=== PATIENT | male | born 1970 | race African-American/Black ===

== ENCOUNTER 2019-08-27 00:35 | Inpatient (IN) | payer MEDICAID ==
[~2019-08-27] VITALS: Ht 185.4 cm; Wt 83.9 kg
[2019-08-27] MEDS ORDERED: ONDANSETRON HCL 4 MG/2 ML VIAL IV ONE (02:45)
[2019-08-27] MEDS ORDERED: ACETAMINOPHEN 325 MG TAB PO ONE ×3 (02:45→02:57)
[2019-08-27] MEDS ORDERED: SODIUM CHLORIDE 0.9% 2,450 ML IV ONE (02:45)
[2019-08-27] MEDS ORDERED: VANCOMYCIN 1GM/250ML 250 ML IV ONE ×3 (02:45→02:57)
[2019-08-27] MEDS ORDERED: MORPHINE SULFATE 4 MG/ML SYR/VIAL IV ONE (02:45)
[2019-08-27] MEDS ORDERED: ONDANSETRON HCL 4 MG/2 ML VIAL ONE (03:09)
[2019-08-27] MEDS ORDERED: MORPHINE SULFATE 4 MG/ML SYR/VIAL ONE (03:09)
[2019-08-27 03:26] LABS: Basophils # (auto) 0.1 uL; Basophils % (auto) 0.4 % (0.0-2.0); Eosinophils # (auto) 0 uL; Hemoglobin 12.5 g/dL (13.5-17.5); Lymphocytes # (auto) 1.3 uL; Lymphocytes % (auto) 6.6 % (10.0-50.0); Mean Corpuscular Hemoglobin 27.7 pg (28.0-32.0); Mean Corpuscular Hgb Conc. 33.8 g/dL (32.0-36.0); Mean Corpuscular Volume 81.9 fL (80.0-100.0); Monocytes % (auto) 9.6 % (0.0-12.0); Neutrophils # (auto) 17.1 uL; Neutrophils % (auto) 83.4 % (37.0-80.0); Platelet Count (auto) 285 10^3/uL (140-450); Red Blood Cells 4.52 10^6/uL (4.5-5.90); Red Cell Distribution Width 14.9 % (11.8-14.3); White Blood Cell 20.5 10^3/uL (4.4-10.8)
[2019-08-27 03:29] LABS: Urine Bacteria FEW /hpf (None Seen); Urine Blood 1+ /uL (Negative); Urine Hyaline Cast FEW /lpf (0 - 2); Urine Mucus FEW (None Seen); Urine Specific Gravity 1.014 (1.001-1.035); Urine WBC 2 /hpf (0 - 3)
[2019-08-27] MEDS ORDERED: PIPERACILLIN-TAZOB 3.375GM 100 ML IV ONE ×2 (03:45→04:17)
[2019-08-27 03:49] LABS: Albumin 3.1 g/dL (3.4-5.0); BUN/Creatinine Ratio 10.7; Calcium 8.6 mg/dL (8.5-10.1)
[2019-08-27 03:52] LABS: Bilirubin, Total 1.7 mg/dL (0.2-1.0); Potassium 2.7 mmol/L (3.5-5.1); Total Protein 8.1 g/dL (6.4-8.2)
[2019-08-27] MEDS ORDERED: POTASSIUM EFFERVESENT TAB 25 MEQ PO ONE (04:30)
[2019-08-27] MEDS ORDERED: POTASSIUM CHL 20MEQ/100ML 100 ML IV ONE ×2 (04:30→04:34)
[2019-08-27] MEDS ORDERED: TEMAZEPAM 15 MG CAP PO PRN (05:30)
[2019-08-27] MEDS ORDERED: SOD CHL 0.9%/ KCL 20MEQ 1,000 ML IV ONE (05:30)
[2019-08-27] MEDS ORDERED: ONDANSETRON HCL 4 MG/2 ML VIAL IV PRN (05:30)
[2019-08-27] MEDS ORDERED: ACETAMINOPHEN 325 MG TAB PO PRN (05:30)
[2019-08-27] MEDS ORDERED: HYDROcodone-ACET 5/325MG TAB PO PRN (05:30)
[2019-08-27] MEDS ORDERED: metroNIDAZOLE 500MG/100ML 100 ML IV SCH (06:00)
[2019-08-27] MEDS: cloNIDine HCL 0.1 MG TAB PO PRN ×2 (06:12→07:46)
[2019-08-27] MEDS: MORPHINE SULF INJ 2 MG/ML SYRINGE 1ML IV PRN (06:22)
--- NOTE | 2019-08-27 08:15 | NUR ---
MS admit from ER NORA TONY admitted to Telemetry unit after SBAR received. Patient oriented to Kirsten Villanueva, primary RN, unit, room, bed, and unit policies regarding patient care and visiting hours. Patient weighed by bedscale and encouraged to call if they need something. All questions and concerns addressed, patient verbalized understanding. Note:
[2019-08-27] MEDS ORDERED: cefTRIAXone 1GM/50ML D5W 50 ML IV SCH (09:00)
[2019-08-27] MEDS: LISINOPRIL 10 MG TAB PO SCH (09:12)
[2019-08-27] MEDS: PANTOPRAZOLE 40 MG TAB PO SCH (09:12)
--- NOTE | 2019-08-27 09:46 | NUR ---
PRINT-OUT INFORMATION RE: DIVERTICULITIS GIVEN TO PT.
[2019-08-27 11:16] LABS: Basophils # (auto) 0.1 uL; Basophils % (auto) 0.2 % (0.0-2.0); Eosinophils # (auto) 0 uL; Eosinophils % (auto) 0.1 % (0.0-7.0); Hematocrit 32.4 % (41.0-53.0); Hemoglobin 10.7 g/dL (13.5-17.5); Lymphocytes # (auto) 1.1 uL; Lymphocytes % (auto) 5.4 % (10.0-50.0); Mean Corpuscular Hgb Conc. 33.1 g/dL (32.0-36.0); Mean Corpuscular Volume 81.5 fL (80.0-100.0); Monocytes # (auto) 1.7 uL; Monocytes % (auto) 8.5 % (0.0-12.0); Neutrophils # (auto) 17.6 uL; Neutrophils % (auto) 85.8 % (37.0-80.0); Platelet Count (auto) 243 10^3/uL (140-450); Red Blood Cells 3.97 10^6/uL (4.5-5.90); Red Cell Distribution Width 14.5 % (11.8-14.3); White Blood Cell 20.5 10^3/uL (4.4-10.8)
[2019-08-27 11:40] LABS: Albumin 2.6 g/dL (3.4-5.0); BUN/Creatinine Ratio 9.3; Bilirubin, Total 1.2 mg/dL (0.2-1.0); Calcium 7.9 mg/dL (8.5-10.1)
[2019-08-27 11:48] LABS: Potassium 2.9 mmol/L (3.5-5.1)
[2019-08-27] MEDS: PIPERACILLIN-TAZO 4.5GM 100 ML IV SCH ×2 (12:01→17:47)
--- NOTE | 2019-08-27 12:43 | NUR ---
DR RUTLEDGE MADE AWARE OF PT'S POTASSIUM LEVEL OF 2.9 AND ALSO OF PT'S REQUEST FOR COUGH MEDICINE.
--- NOTE | 2019-08-27 12:44 | NUR ---
DR RUTLEDGE AT BEDSIDE.
[2019-08-27 13:22] VITALS: BP 127/84
[2019-08-27] MEDS ORDERED: POTASSIUM CHL 20 Meq TABLET PO ONE (14:15)
[2019-08-27] MEDS ORDERED: guaiFENesin-CODEINE Liq 5 ML UD PO PRN (15:45)
[2019-08-27 17:23] VITALS: BP 136/71
--- NOTE | 2019-08-27 19:17 | NUR ---
CLOSING NOTES CARE ENDORSED TO NOC RN. PT RESTING IN BED. NO DISTRESS NOTED. DENIES PAIN OR SOB.
--- NOTE | 2019-08-27 20:00 | NUR ---
PT SLEEPING CHEST RISING AND FALLING, AROUSABLE BY NAME, AAOX4. AFEBRILE. NO C/O PAIN AT THIS TIME. PT AMBULATES W/ STEADY GAIT. NO SOB OR DISTRESS. POC DISCUSSED W/ FAMILY, STATES UNDERSTANDING. SAFETY PRECAUTIONS IN PLACE. WILL CONTINUE TO MONITOR.
[2019-08-27 22:00] VITALS: BP 140/78
[2019-08-28] MEDS ORDERED: PIPERACILLIN-TAZO 4.5GM 200 ML IV ONE (01:46)
[2019-08-28] MEDS: PIPERACILLIN-TAZO 4.5GM 100 ML IV SCH ×5 (01:48→23:45)
[2019-08-28 05:00] VITALS: BP 141/77
[2019-08-28 06:03] LABS: Basophils # (auto) 0.1 uL; Basophils % (auto) 0.4 % (0.0-2.0); Eosinophils # (auto) 0.1 uL; Eosinophils % (auto) 0.9 % (0.0-7.0); Hematocrit 32.7 % (41.0-53.0); Hemoglobin 10.7 g/dL (13.5-17.5); Lymphocytes # (auto) 1.4 uL; Lymphocytes % (auto) 9.5 % (10.0-50.0); Mean Corpuscular Hemoglobin 27.1 pg (28.0-32.0); Mean Corpuscular Hgb Conc. 32.7 g/dL (32.0-36.0); Mean Corpuscular Volume 82.8 fL (80.0-100.0); Monocytes # (auto) 1.6 uL; Monocytes % (auto) 11.3 % (0.0-12.0); Neutrophils # (auto) 11.1 uL; Neutrophils % (auto) 77.9 % (37.0-80.0); Nucleated Red Blood Cells % 0.1 %; Platelet Count (auto) 234 10^3/uL (140-450); Red Blood Cells 3.94 10^6/uL (4.5-5.90); Red Cell Distribution Width 14.5 % (11.8-14.3); White Blood Cell 14.2 10^3/uL (4.4-10.8)
[2019-08-28 06:13] LABS: Albumin 2.5 g/dL (3.4-5.0); Potassium 3.4 mmol/L (3.5-5.1)
[2019-08-28 06:20] LABS: BUN/Creatinine Ratio 9.7; Bilirubin, Total 0.8 mg/dL (0.2-1.0); Calcium 8.6 mg/dL (8.5-10.1); Total Protein 6.7 g/dL (6.4-8.2)
--- NOTE | 2019-08-28 07:30 | NUR ---
Opening Shift Note Assumed care of patient, awake and alert. No S/S of distress/SOB or pain. Instructed on POC and to call for assist PRN, will continue to monitor for changes Q1hr and PRN. Patient denies pain at this time.
[2019-08-28 09:01] VITALS: BP 146/95
[2019-08-28] MEDS: PANTOPRAZOLE 40 MG TAB PO SCH (10:06)
[2019-08-28] MEDS: LISINOPRIL 10 MG TAB PO SCH (10:07)
--- NOTE | 2019-08-28 11:00 | NUR ---
Dr. Mendoza in to see patient as hospitalist.
[2019-08-28 12:30] VITALS: BP 156/105
[2019-08-28] MEDS ORDERED: POTASSIUM CHL 20 Meq TABLET PO ONE (12:45)
[2019-08-28 17:06] VITALS: BP 164/99
--- NOTE | 2019-08-28 18:23 | NUR ---
Patient is resting quietly. Call light in reach, will continue to monitor.
--- NOTE | 2019-08-28 19:00 | NUR ---
Opening Shift Note Assumed care of patient, awake and alert. No S/S of distress/SOB or pain. Instructed on POC and to call for assist PRN, will continue to monitor for changes Q1hr and PRN.
[2019-08-28] MEDS: MORPHINE SULF INJ 2 MG/ML SYRINGE 1ML IV PRN (21:41)
[2019-08-28 22:00] VITALS: BP 161/92
[2019-08-28] MEDS: cloNIDine HCL 0.1 MG TAB PO PRN (22:10)
[2019-08-29 05:00] VITALS: BP 156/110
[2019-08-29] MEDS: PIPERACILLIN-TAZO 4.5GM 100 ML IV SCH ×2 (05:31→12:46)
[2019-08-29] MEDS: cloNIDine HCL 0.1 MG TAB PO PRN (05:41)
[2019-08-29] MEDS: MORPHINE SULF INJ 2 MG/ML SYRINGE 1ML IV PRN (05:41)
[2019-08-29 06:42] LABS: Basophils # (auto) 0.1 uL; Basophils % (auto) 0.9 % (0.0-2.0); Eosinophils # (auto) 0.2 uL; Eosinophils % (auto) 3.2 % (0.0-7.0); Hematocrit 32.9 % (41.0-53.0); Hemoglobin 10.9 g/dL (13.5-17.5); Lymphocytes # (auto) 1.1 uL; Lymphocytes % (auto) 16.8 % (10.0-50.0); Mean Corpuscular Hemoglobin 27.1 pg (28.0-32.0); Mean Corpuscular Volume 82.3 fL (80.0-100.0); Monocytes # (auto) 0.9 uL; Monocytes % (auto) 14.4 % (0.0-12.0); Neutrophils # (auto) 4.1 uL; Neutrophils % (auto) 64.7 % (37.0-80.0); Platelet Count (auto) 269 10^3/uL (140-450); Red Cell Distribution Width 14.6 % (11.8-14.3); White Blood Cell 6.4 10^3/uL (4.4-10.8)
[2019-08-29 06:57] LABS: BUN/Creatinine Ratio 5.5; Calcium 8.5 mg/dL (8.5-10.1); Potassium 3.4 mmol/L (3.5-5.1)
[2019-08-29 09:00] VITALS: BP 154/95
[2019-08-29] MEDS: PANTOPRAZOLE 40 MG TAB PO SCH (10:00)
[2019-08-29] MEDS: LISINOPRIL 10 MG TAB PO SCH (10:01)
[2019-08-29 12:38] VITALS: BP 146/86
[2019-08-29 14:21] VITALS: BP 154/95
--- NOTE | 2019-08-29 16:00 | NUR ---
Discharge instructions given as ordered. Encourage to follow up with PMD with [facility] in [place], [place] as instructed and follow up with GI in 4-6 weeks. All questions and concerns addressed. Patient verbalized understanding. Medication reconciliation form completed and copy given to patient. IV removed with catheter intact, pressure dressing applied. Patient taken to vehicle via wheelchair with all personal belongings, accompanied by staff and family member. No distress noted at time of departure.
== END 2019-08-29 16:00 | disposition home or self-care (01) | DRG 720 ==
LOC: EDBD 00:35 → ER 00:39 → OVERFLOW 00:40 → CENTRAL 08:36
PROVIDERS: ADMIT Nurse Practitioner; ATTEND Internal Medicine
DX: A41.9 Sepsis, unspecified organism (principal); K57.32 Diverticulitis of large intestine without perforation or abscess without bleeding; D72.829 Elevated white blood cell count, unspecified; E87.6 Hypokalemia; N40.0 Benign prostatic hyperplasia without lower urinary tract symptoms; I16.9 Hypertensive crisis, unspecified; K40.20 Bilateral inguinal hernia, without obstruction or gangrene, not specified as recurrent; I10 Essential (primary) hypertension; Z79.899 Other long term (current) drug therapy
CPT/HCPCS: 36415; 74176; 80048; 80053; 81001; 82378; 83036; 83605; 83735; 84154; 84443; 85025; 85652; 87040; 87086; 87493; 96365; 96367; 96368; 96375; G0378; J0696; J2405; J2543; J3480; J3490

== ENCOUNTER 2019-10-28 13:23 | Inpatient (IN) | payer MEDICAID ==
[~2019-10-28] VITALS: Ht 167.6 cm; Wt 93.6 kg
[2019-10-28] MEDS ORDERED: ACETAMINOPHEN 500 MG TAB PO ONE ×2 (15:09→15:15)
[2019-10-28] MEDS ORDERED: SODIUM CHLORIDE 0.9% 1,000 ML IVB ONE (15:52)
[2019-10-28] MEDS ORDERED: IOHEXOL 300 MG/ML 100ML BOTTLE IJ ONE ×2 (16:00→18:11)
[2019-10-28] MEDS ORDERED: ONDANSETRON HCL 4 MG/2 ML VIAL IV ONE (16:00)
[2019-10-28] MEDS ORDERED: MORPHINE SULFATE 4 MG/ML SYR/VIAL IV ONE (16:00)
[2019-10-28 16:35] LABS: Basophils # (auto) 0.1 10 ^3/uL (0-0.2); Basophils % (auto) 0.5 % (0.0-2.0); Eosinophils # (auto) 0 10 ^3/uL (0-0.8)
[2019-10-28 16:36] LABS: Hematocrit 37.6 % (36.0-46.0); Hemoglobin 12.6 g/dL (12.2-16.2); Lymphocytes # (auto) 1.3 10 ^3/uL (0.4-5.4); Lymphocytes % (auto) 7.2 % (10.0-50.0); Mean Corpuscular Hemoglobin 26.9 pg (28.0-32.0); Mean Corpuscular Hgb Conc. 33.7 g/dL (32.0-36.0); Monocytes # (auto) 1.8 10 ^3/uL (0-1.3); Neutrophils # (auto) 14.5 10 ^3/uL (1.6-8.6); Neutrophils % (auto) 82.3 % (37.0-80.0); Platelet Count (auto) 338 10^3/uL (140-450); Red Cell Distribution Width 15.8 % (11.8-14.3); White Blood Cell 17.6 10^3/uL (4.4-10.8)
[2019-10-28 16:41] LABS: Urine Bacteria NONE SEEN /hpf (None Seen); Urine Blood 1+ /uL (Negative); Urine Mucus FEW (None Seen); Urine Specific Gravity 1.029 (1.001-1.035); Urine WBC 5 /hpf (0 - 5)
[2019-10-28 17:02] LABS: Albumin 3.1 g/dL (3.4-5.0); BUN/Creatinine Ratio 10.3; Calcium 9.1 mg/dL (8.5-10.1)
[2019-10-28 17:11] LABS: Bilirubin, Total 2.1 mg/dL (0.2-1.0); Total Protein 8.8 g/dL (6.4-8.2)
[2019-10-28 17:16] LABS: Potassium 2.6 mmol/L (3.5-5.1)
[2019-10-28] MEDS ORDERED: POTASSIUM CHL 20MEQ/100ML 100 ML IV ONE (18:00)
[2019-10-28] MEDS ORDERED: metroNIDAZOLE 500MG/100ML 100 ML IV ONE (19:00)
[2019-10-28] MEDS ORDERED: MORPHINE SULF INJ 2 MG/ML SYRINGE 1ML IV PRN (19:15)
[2019-10-28] MEDS ORDERED: LABETALOL HCL 5 MG/ML 4ML SYRINGE IV PRN (19:15)
[2019-10-28] MEDS ORDERED: NITROGLYCERIN 0.4 MG SL TAB SL PRN (19:15)
[2019-10-28] MEDS: LABETALOL HCL 5 MG/ML ML 20ML VIAL IV PRN (21:15)
[2019-10-28 22:00] VITALS: BP 157/102
[2019-10-28] MEDS: HYDROmorphone HCL 2 MG/ML VL IV PRN (22:31)
[2019-10-28 23:30] VITALS: BP 119/75
[2019-10-28] MEDS: D5W/SOD CHL 0.45%/KCL 20MEQ 1,000 ML IV SCH (23:33)
[2019-10-28] MEDS: metroNIDAZOLE 500MG/100ML 100 ML IV SCH (23:34)
[2019-10-29] VITALS (7 sets, daily range): BP systolic 145–182; BP diastolic 83–103
[2019-10-29] MEDS: HYDROmorphone HCL 2 MG/ML VL IV PRN ×5 (03:19→22:53)
[2019-10-29] MEDS: D5W/SOD CHL 0.45%/KCL 20MEQ 1,000 ML IV SCH ×3 (03:23→20:19)
[2019-10-29] MEDS: metroNIDAZOLE 500MG/100ML 100 ML IV SCH ×3 (05:46→22:55)
[2019-10-29 05:57] LABS: Basophils # (auto) 0 10 ^3/uL (0-0.2); Basophils % (auto) 0.3 % (0.0-2.0); Eosinophils # (auto) 0 10 ^3/uL (0-0.8); Eosinophils % (auto) 0.1 % (0.0-7.0)
[2019-10-29 05:59] LABS: Hematocrit 31.6 % (41.0-53.0); Hemoglobin 10.4 g/dL (13.5-17.5); Lymphocytes # (auto) 1.2 10 ^3/uL (0.4-5.4); Lymphocytes % (auto) 7.5 % (10.0-50.0); Mean Corpuscular Hemoglobin 26.4 pg (28.0-32.0); Mean Corpuscular Hgb Conc. 33.1 g/dL (32.0-36.0); Mean Corpuscular Volume 79.9 fL (80.0-100.0); Monocytes # (auto) 1.7 10 ^3/uL (0-1.3); Monocytes % (auto) 11.2 % (0.0-12.0); Neutrophils # (auto) 12.5 10 ^3/uL (1.6-8.6); Neutrophils % (auto) 80.9 % (37.0-80.0); Platelet Count (auto) 278 10^3/uL (140-450); Red Blood Cells 3.95 10^6/uL (4.5-5.90); White Blood Cell 15.5 10^3/uL (4.4-10.8)
[2019-10-29 06:13] LABS: INR 1.18 (0.9-1.15); Partial Thromboplastin Time 36.6 sec (23.64-32.05)
[2019-10-29 06:29] LABS: Albumin 2.4 g/dL (3.4-5.0); BUN/Creatinine Ratio 9.7; Bilirubin, Total 1.2 mg/dL (0.2-1.0); Calcium 8.6 mg/dL (8.5-10.1); Total Protein 7.4 g/dL (6.4-8.2)
[2019-10-29 06:33] LABS: Potassium 2.8 mmol/L (3.5-5.1)
[2019-10-29] MEDS ORDERED: POTASSIUM CHL 20 Meq TABLET PO ONE (07:15)
[2019-10-29] MEDS: LABETALOL HCL 5 MG/ML ML 20ML VIAL IV PRN (08:43)
[2019-10-29] MEDS ORDERED: levoFLOXacin 500MG 100 ML IV SCH (10:00)
[2019-10-29] MEDS ORDERED: PIPERACILLIN-TAZOB 3.375GM 100 ML IV ONE (14:30)
[2019-10-29] MEDS ORDERED: VANCOMYCIN PER PHARMACY 0 MG IV SCH (14:30)
[2019-10-29] MEDS ORDERED: VANCOMYCIN 1GM/250ML 250 ML IV ONE (15:15)
[2019-10-29] MEDS: ACETAMINOPHEN 325 MG TAB PO PRN (15:41)
[2019-10-29] MEDS: PIPERACILLIN-TAZOB 3.375GM 100 ML IV SCH (20:20)
[2019-10-29] MEDS: ONDANSETRON HCL 4 MG/2 ML VIAL IV PRN (22:55)
[2019-10-30] VITALS (7 sets, daily range): BP systolic 135–168; BP diastolic 96–112
[2019-10-30] MEDS: VANCOMYCIN 1GM/250ML 250 ML IV SCH ×3 (01:31→17:46)
[2019-10-30] MEDS: HYDROmorphone HCL 2 MG/ML VL IV PRN ×6 (02:16→21:37)
[2019-10-30] MEDS: PIPERACILLIN-TAZOB 3.375GM 100 ML IV SCH ×4 (04:23→21:39)
[2019-10-30] MEDS: D5W/SOD CHL 0.45%/KCL 20MEQ 1,000 ML IV SCH ×3 (04:34→23:45)
[2019-10-30 05:43] LABS: Basophils # (auto) 0.1 10 ^3/uL (0-0.2); Basophils % (auto) 0.4 % (0.0-2.0); Eosinophils # (auto) 0 10 ^3/uL (0-0.8); Eosinophils % (auto) 0.1 % (0.0-7.0); Hematocrit 32.8 % (41.0-53.0); Hemoglobin 10.8 g/dL (13.5-17.5); Lymphocytes # (auto) 1.1 10 ^3/uL (0.4-5.4); Lymphocytes % (auto) 6.5 % (10.0-50.0); Mean Corpuscular Hemoglobin 26.4 pg (28.0-32.0); Monocytes # (auto) 1.7 10 ^3/uL (0-1.3); Monocytes % (auto) 10.3 % (0.0-12.0); Neutrophils # (auto) 13.8 10 ^3/uL (1.6-8.6); Neutrophils % (auto) 82.7 % (37.0-80.0); Platelet Count (auto) 281 10^3/uL (140-450); White Blood Cell 16.7 10^3/uL (4.4-10.8)
[2019-10-30 05:56] LABS: Albumin 2.5 g/dL (3.4-5.0); Calcium 8.6 mg/dL (8.5-10.1); Magnesium 2.1 mg/dL (1.6-2.6)
[2019-10-30 06:00] LABS: BUN/Creatinine Ratio 8.7; Bilirubin, Total 1.2 mg/dL (0.2-1.0); Total Protein 7.7 g/dL (6.4-8.2)
[2019-10-30 06:11] LABS: Potassium 2.9 mmol/L (3.5-5.1)
[2019-10-30] MEDS: metroNIDAZOLE 500MG/100ML 100 ML IV SCH ×3 (06:32→21:38)
[2019-10-30] MEDS: hydrALAZINE HCL 20 MG/ML VL IV PRN ×2 (06:33→13:01)
[2019-10-30] MEDS ORDERED: POTASSIUM CHL 20 Meq TABLET PO ONE (06:45)
[2019-10-30] MEDS: LABETALOL HCL 5 MG/ML ML 20ML VIAL IV PRN ×3 (09:11→21:38)
[2019-10-30] MEDS: ACETAMINOPHEN 325 MG TAB PO PRN (11:49)
[2019-10-30] MEDS: POTASSIUM CHL 20MEQ/100ML 100 ML IV SCH ×2 (11:49→14:00)
[2019-10-30] MEDS ORDERED: HYDROmorphone HCL 2 MG/ML VL IV PRN (13:45)
[2019-10-31] MEDS: VANCOMYCIN 1GM/250ML 250 ML IV SCH ×3 (02:01→16:57)
[2019-10-31] MEDS: HYDROmorphone HCL 2 MG/ML VL IV PRN ×3 (02:02→21:02)
[2019-10-31 05:03] VITALS: BP 137/90
[2019-10-31] MEDS: PIPERACILLIN-TAZOB 3.375GM 100 ML IV SCH ×3 (05:08→18:23)
[2019-10-31] MEDS: metroNIDAZOLE 500MG/100ML 100 ML IV SCH ×3 (05:09→23:03)
[2019-10-31 05:59] LABS: Basophils # (auto) 0.1 10 ^3/uL (0-0.2); Basophils % (auto) 0.5 % (0.0-2.0); Eosinophils # (auto) 0.1 10 ^3/uL (0-0.8); Eosinophils % (auto) 0.4 % (0.0-7.0); Hematocrit 33.3 % (41.0-53.0); Hemoglobin 11.1 g/dL (13.5-17.5); Lymphocytes # (auto) 0.9 10 ^3/uL (0.4-5.4); Lymphocytes % (auto) 6.3 % (10.0-50.0); Mean Corpuscular Hemoglobin 26.8 pg (28.0-32.0); Mean Corpuscular Hgb Conc. 33.4 g/dL (32.0-36.0); Mean Corpuscular Volume 80.2 fL (80.0-100.0); Monocytes # (auto) 1.5 10 ^3/uL (0-1.3); Monocytes % (auto) 10.3 % (0.0-12.0); Neutrophils # (auto) 12.2 10 ^3/uL (1.6-8.6); Neutrophils % (auto) 82.5 % (37.0-80.0); Platelet Count (auto) 336 10^3/uL (140-450); Red Blood Cells 4.16 10^6/uL (4.5-5.90); Red Cell Distribution Width 16.1 % (11.8-14.3); White Blood Cell 14.7 10^3/uL (4.4-10.8)
[2019-10-31 06:11] LABS: BUN/Creatinine Ratio 8.9; Calcium 8.7 mg/dL (8.5-10.1); Potassium 3.3 mmol/L (3.5-5.1)
[2019-10-31 09:00] VITALS: BP 146/96
[2019-10-31] MEDS ORDERED: LIDOCAINE 2%HCL (LOCAL ANESTH.) INJ 20ML MDV ONE (09:11)
[2019-10-31] MEDS ORDERED: MIDAZOLAM HCL 1MG/1ML-2 ML VIAL IV ONE (09:30)
[2019-10-31] MEDS ORDERED: fentaNYL CITRATE 100 MCG/2 ML VL IV ONE (09:30)
[2019-10-31] MEDS ORDERED: MIDAZOLAM HCL 1MG/1ML-2 ML VIAL ONE (09:37)
[2019-10-31] MEDS ORDERED: fentaNYL CITRATE 100 MCG/2 ML VL ONE (09:37)
[2019-10-31] MEDS: D5W/SOD CHL 0.45%/KCL 20MEQ 1,000 ML IV SCH ×2 (11:20→23:15)
[2019-10-31] MEDS: hydrALAZINE HCL 20 MG/ML VL IV PRN ×2 (11:48→20:47)
[2019-10-31] MEDS: POTASSIUM CHL 20MEQ/100ML 100 ML IV SCH ×2 (11:48→15:05)
[2019-10-31 13:00] VITALS: BP 166/111
[2019-10-31 17:00] VITALS: BP 167/113
[2019-10-31] MEDS: LABETALOL HCL 5 MG/ML ML 20ML VIAL IV PRN (18:32)
[2019-10-31 21:44] VITALS: BP 166/109
[2019-11-01] VITALS (7 sets, daily range): BP systolic 142–162; BP diastolic 94–109
[2019-11-01] MEDS: VANCOMYCIN 1GM/250ML 250 ML IV SCH ×3 (01:27→17:59)
[2019-11-01] MEDS: hydrALAZINE HCL 20 MG/ML VL IV PRN (02:20)
[2019-11-01] MEDS: HYDROmorphone HCL 2 MG/ML VL IV PRN ×4 (02:32→19:12)
[2019-11-01] MEDS: PIPERACILLIN-TAZOB 3.375GM 100 ML IV SCH ×4 (05:13→23:09)
[2019-11-01 05:33] LABS: Basophils # (auto) 0 10 ^3/uL (0-0.2); Basophils % (auto) 0.4 % (0.0-2.0); Eosinophils # (auto) 0.1 10 ^3/uL (0-0.8); Eosinophils % (auto) 0.8 % (0.0-7.0); Hemoglobin 11.4 g/dL (13.5-17.5); Lymphocytes # (auto) 0.9 10 ^3/uL (0.4-5.4); Lymphocytes % (auto) 7.4 % (10.0-50.0); Mean Corpuscular Hemoglobin 25.8 pg (28.0-32.0); Mean Corpuscular Hgb Conc. 32.6 g/dL (32.0-36.0); Mean Corpuscular Volume 79.3 fL (80.0-100.0); Monocytes # (auto) 1.6 10 ^3/uL (0-1.3); Monocytes % (auto) 12.7 % (0.0-12.0); Neutrophils # (auto) 9.6 10 ^3/uL (1.6-8.6); Neutrophils % (auto) 78.7 % (37.0-80.0); Platelet Count (auto) 392 10^3/uL (140-450); Red Blood Cells 4.41 10^6/uL (4.5-5.90); Red Cell Distribution Width 16.5 % (11.8-14.3); White Blood Cell 12.2 10^3/uL (4.4-10.8)
[2019-11-01 05:46] LABS: Potassium 3.3 mmol/L (3.5-5.1)
[2019-11-01 05:51] LABS: Magnesium 2.1 mg/dL (1.6-2.6)
[2019-11-01] MEDS: metroNIDAZOLE 500MG/100ML 100 ML IV SCH ×4 (06:35→23:09)
[2019-11-01] MEDS: D5W/SOD CHL 0.45%/KCL 20MEQ 1,000 ML IV SCH ×2 (09:01→15:15)
[2019-11-01] MEDS: LABETALOL HCL 5 MG/ML ML 20ML VIAL IV PRN ×2 (09:20→14:45)
[2019-11-01] MEDS: POTASSIUM CHL 20MEQ/100ML 100 ML IV SCH ×2 (15:45→19:00)
[2019-11-01] MEDS: METOPROLOL TARTRATE 1MG/1ML-5ML VIAL IV SCH ×2 (18:01→23:22)
[2019-11-02] VITALS (29 sets, daily range): BP systolic 125–169; BP diastolic 79–119
[2019-11-02] MEDS: HYDROmorphone HCL 2 MG/ML VL IV PRN ×3 (00:58→14:23)
[2019-11-02] MEDS: VANCOMYCIN 1GM/250ML 250 ML IV SCH ×2 (04:44→18:04)
[2019-11-02] MEDS: PIPERACILLIN-TAZOB 3.375GM 100 ML IV SCH ×4 (04:44→23:21)
[2019-11-02] MEDS: D5W/SOD CHL 0.45%/KCL 20MEQ 1,000 ML IV SCH (05:29)
[2019-11-02] MEDS: ONDANSETRON HCL 4 MG/2 ML VIAL IV PRN ×2 (05:56→17:31)
[2019-11-02] MEDS: METOPROLOL TARTRATE 1MG/1ML-5ML VIAL IV SCH ×3 (06:00→18:05)
[2019-11-02 06:33] LABS: Basophils # (auto) 0.1 10 ^3/uL (0-0.2); Eosinophils # (auto) 0.4 10 ^3/uL (0-0.8); Hematocrit 36.3 % (41.0-53.0); Lymphocytes # (auto) 1.1 10 ^3/uL (0.4-5.4)
[2019-11-02 06:35] LABS: Basophils % (auto) 0.5 % (0.0-2.0); Eosinophils % (auto) 3.6 % (0.0-7.0); Hemoglobin 11.7 g/dL (13.5-17.5); Mean Corpuscular Hemoglobin 26.1 pg (28.0-32.0); Mean Corpuscular Hgb Conc. 32.3 g/dL (32.0-36.0); Mean Corpuscular Volume 80.7 fL (80.0-100.0); Monocytes # (auto) 1.3 10 ^3/uL (0-1.3); Monocytes % (auto) 11.1 % (0.0-12.0); Neutrophils # (auto) 8.5 10 ^3/uL (1.6-8.6); Neutrophils % (auto) 74.8 % (37.0-80.0); Platelet Count (auto) 471 10^3/uL (140-450); Red Cell Distribution Width 16.3 % (11.8-14.3); White Blood Cell 11.3 10^3/uL (4.4-10.8)
[2019-11-02] MEDS: metroNIDAZOLE 500MG/100ML 100 ML IV SCH ×3 (06:51→22:05)
[2019-11-02 06:53] LABS: BUN/Creatinine Ratio 12.2; Calcium 8.7 mg/dL (8.5-10.1); Potassium 3.6 mmol/L (3.5-5.1)
[2019-11-02] MEDS: hydrALAZINE HCL 20 MG/ML VL IV PRN ×2 (07:35→14:24)
[2019-11-02] MEDS: ACETAMINOPHEN 325 MG TAB PO PRN (10:00)
[2019-11-02] MEDS ORDERED: POTASSIUM CHL 20MEQ/100ML 100 ML IV ONE (12:30)
[2019-11-02] MEDS: NITROGLYCERIN 50MG/250ML 250 ML IV SCH (17:17)
[2019-11-03] VITALS (73 sets, daily range): BP systolic 121–183; BP diastolic 74–117
[2019-11-03] MEDS: METOPROLOL TARTRATE 1MG/1ML-5ML VIAL IV SCH ×5 (00:44→18:13)
[2019-11-03 03:37] LABS: Basophils % (auto) 0.4 % (0.0-2.0); Hemoglobin 10.1 g/dL (13.5-17.5); Red Cell Distribution Width 16.4 % (11.8-14.3)
[2019-11-03 03:39] LABS: Basophils # (auto) 0.1 10 ^3/uL (0-0.2); Eosinophils # (auto) 0.3 10 ^3/uL (0-0.8); Eosinophils % (auto) 2.7 % (0.0-7.0); Hematocrit 31.5 % (41.0-53.0); Lymphocytes # (auto) 1.1 10 ^3/uL (0.4-5.4); Lymphocytes % (auto) 9.4 % (10.0-50.0); Mean Corpuscular Hemoglobin 25.5 pg (28.0-32.0); Mean Corpuscular Volume 79.5 fL (80.0-100.0); Monocytes # (auto) 1.5 10 ^3/uL (0-1.3); Monocytes % (auto) 12.7 % (0.0-12.0); Neutrophils % (auto) 74.8 % (37.0-80.0); Platelet Count (auto) 444 10^3/uL (140-450); Red Blood Cells 3.97 10^6/uL (4.5-5.90)
[2019-11-03 03:55] LABS: Calcium 8.1 mg/dL (8.5-10.1); Potassium 3.4 mmol/L (3.5-5.1)
[2019-11-03 03:57] LABS: BUN/Creatinine Ratio 10.2
[2019-11-03] MEDS: HYDROmorphone HCL 2 MG/ML VL IV PRN ×4 (04:12→23:25)
[2019-11-03] MEDS: VANCOMYCIN 1GM/250ML 250 ML IV SCH ×2 (05:02→17:43)
[2019-11-03] MEDS: PIPERACILLIN-TAZOB 3.375GM 100 ML IV SCH ×4 (05:02→22:49)
[2019-11-03] MEDS: metroNIDAZOLE 500MG/100ML 100 ML IV SCH ×3 (06:23→22:48)
[2019-11-03] MEDS: D5W/SOD CHL 0.45%/KCL 20MEQ 1,000 ML IV SCH ×2 (07:15→10:35)
[2019-11-03] MEDS: hydrALAZINE HCL 20 MG/ML VL IV PRN ×2 (10:36→16:45)
[2019-11-03] MEDS ORDERED: POTASSIUM CHL 20MEQ/100ML 100 ML IV ONE (11:45)
[2019-11-03] MEDS ORDERED: PPN PER PHARMACY 0 ML IV SCH (12:15)
[2019-11-03 13:23] LABS: INR 1.3 (0.9-1.15)
[2019-11-03 13:28] LABS: Phosphorus 2.9 mg/dL (2.5-4.90)
[2019-11-03] MEDS: NITROGLYCERIN 50MG/250ML 250 ML IV SCH (17:43)
[2019-11-03] MEDS ORDERED: LIDOCAINE 1% (LOCAL ANESTH.) PF 5ml SDV ID ONE (17:45)
[2019-11-03] MEDS: PPN PER PHARMACY IV NR ×8 (20:26)
[2019-11-03] MEDS: SODIUM CHLOR 0.9% PF (SALINE LOCK) 10ML VIAL/SYR IV SCH (22:00)
[2019-11-04] VITALS (81 sets, daily range): BP systolic 138–182; BP diastolic 90–118
[2019-11-04] MEDS ORDERED: DEXTROSE (50%) 50ML SYRG IV SCH
[2019-11-04] MEDS: hydrALAZINE HCL 20 MG/ML VL IV PRN (03:45)
[2019-11-04] MEDS: HYDROmorphone HCL 2 MG/ML VL IV PRN ×2 (04:08→08:47)
[2019-11-04 04:09] LABS: Potassium 3.2 mmol/L (3.5-5.1)
[2019-11-04] MEDS: ONDANSETRON HCL 4 MG/2 ML VIAL IV PRN ×2 (04:11→23:08)
[2019-11-04 04:18] LABS: Albumin 2.3 g/dL (3.4-5.0); BUN/Creatinine Ratio 9.3; Bilirubin, Total 0.4 mg/dL (0.2-1.0); Calcium 8.3 mg/dL (8.5-10.1); Magnesium 2.4 mg/dL (1.6-2.6); Pre Albumin 10.8 mg/dL (20.0-40.0); Total Protein 7.3 g/dL (6.4-8.2)
[2019-11-04] MEDS: VANCOMYCIN 1GM/250ML 250 ML IV SCH (04:26)
[2019-11-04] MEDS: PIPERACILLIN-TAZOB 3.375GM 100 ML IV SCH ×4 (05:07→23:05)
[2019-11-04] MEDS: METOPROLOL TARTRATE 1MG/1ML-5ML VIAL IV SCH ×3 (05:50→18:16)
[2019-11-04] MEDS: ACCU-CHEK COMFORT CURVE STRIP VI SCH ×4 (05:55→18:15)
[2019-11-04] MEDS: InsuLIN REG 1unit/0.01ml Soln (100units/ml) SC SCH ×4 (05:55→18:00)
[2019-11-04] MEDS: metroNIDAZOLE 500MG/100ML 100 ML IV SCH ×3 (07:13→22:46)
[2019-11-04] MEDS ORDERED: TPN PER PHARMACY 0 ML IV SCH (10:15)
[2019-11-04] MEDS: POTASSIUM CHL 20MEQ/100ML 100 ML IV SCH ×2 (10:17→12:26)
[2019-11-04] MEDS: SODIUM CHLOR 0.9% PF (SALINE LOCK) 10ML VIAL/SYR IV SCH ×2 (10:18→22:00)
[2019-11-04] MEDS: KETOROLAC TROMETH 30 MG/ML 1ML VIAL IV PRN ×3 (11:39→23:06)
[2019-11-04 12:59] LABS: Basophils # (auto) 0.1 10 ^3/uL (0-0.2); Eosinophils # (auto) 0.3 10 ^3/uL (0-0.8); Hemoglobin 9.7 g/dL (13.5-17.5); Lymphocytes # (auto) 1.3 10 ^3/uL (0.4-5.4); Mean Corpuscular Volume 81.1 fL (80.0-100.0)
[2019-11-04 13:00] LABS: Eosinophils % (auto) 1.9 % (0.0-7.0); Hematocrit 29.7 % (41.0-53.0); Mean Corpuscular Hemoglobin 26.6 pg (28.0-32.0); Mean Corpuscular Hgb Conc. 32.9 g/dL (32.0-36.0); Monocytes # (auto) 1.4 10 ^3/uL (0-1.3); Neutrophils # (auto) 11.1 10 ^3/uL (1.6-8.6); Neutrophils % (auto) 78.1 % (37.0-80.0); Platelet Count (auto) 408 10^3/uL (140-450); Red Blood Cells 3.66 10^6/uL (4.5-5.90); Red Cell Distribution Width 16.6 % (11.8-14.3); White Blood Cell 14.2 10^3/uL (4.4-10.8)
[2019-11-04] MEDS ORDERED: TPN PER PHARMACY IV NR ×8 (20:00)
[2019-11-05] VITALS (89 sets, daily range): BP systolic 133–187; BP diastolic 80–129
[2019-11-05] MEDS: METOPROLOL TARTRATE 1MG/1ML-5ML VIAL IV SCH ×3 (01:03→12:16)
[2019-11-05] MEDS: ACCU-CHEK COMFORT CURVE STRIP VI SCH ×4 (03:21→17:47)
[2019-11-05 04:18] LABS: Basophils # (auto) 0.1 10 ^3/uL (0-0.2); Eosinophils # (auto) 0.4 10 ^3/uL (0-0.8); Hemoglobin 10.2 g/dL (13.5-17.5); Mean Corpuscular Hemoglobin 27.9 pg (28.0-32.0)
[2019-11-05 04:20] LABS: Basophils % (auto) 1.2 % (0.0-2.0); Eosinophils % (auto) 3.7 % (0.0-7.0); Hematocrit 35.4 % (41.0-53.0); Lymphocytes % (auto) 9.5 % (10.0-50.0); Mean Corpuscular Hgb Conc. 28.7 g/dL (32.0-36.0); Mean Corpuscular Volume 97.4 fL (80.0-100.0); Monocytes % (auto) 9.9 % (0.0-12.0); Neutrophils % (auto) 75.7 % (37.0-80.0); Platelet Count (auto) 400 10^3/uL (140-450); Red Blood Cells 3.64 10^6/uL (4.5-5.90); Red Cell Distribution Width 17.6 % (11.8-14.3); White Blood Cell 10.6 10^3/uL (4.4-10.8)
[2019-11-05] MEDS: PIPERACILLIN-TAZOB 3.375GM 100 ML IV SCH ×4 (05:00→23:20)
[2019-11-05] MEDS: InsuLIN REG 1unit/0.01ml Soln (100units/ml) SC SCH ×5 (06:00→23:39)
[2019-11-05] MEDS: metroNIDAZOLE 500MG/100ML 100 ML IV SCH ×3 (07:34→22:37)
[2019-11-05] MEDS: SODIUM CHLOR 0.9% PF (SALINE LOCK) 10ML VIAL/SYR IV SCH ×2 (07:35→23:19)
[2019-11-05] MEDS: hydrALAZINE HCL 20 MG/ML VL IV PRN (07:35)
[2019-11-05] MEDS: PPN PER PHARMACY IV NR ×8 (07:40)
[2019-11-05] MEDS: KETOROLAC TROMETH 30 MG/ML 1ML VIAL IV PRN ×3 (09:15→23:13)
[2019-11-05] MEDS: NITROGLYCERIN 0.2MG/HR TOPICAL PATCH TD SCH (09:52)
[2019-11-05 11:16] LABS: Alkaline Phosphatase 65 U/L (45-117); Anion Gap 8 (5-15); Aspartate Aminotransferase 32 U/L (15-37); BUN/Creatinine Ratio 11.2; Blood Urea Nitrogen 15 mg/dL (7-18); Carbon Dioxide 35 mmol/L (21-32); Chloride 99 mmol/L (98-107); GFR African American 73 mL/min; GFR Non-African American 60 mL/min; Glucose 135 mg/dL (74-106); Potassium 3.1 mmol/L (3.5-5.1); Sodium 142 mmol/L (136-145)
[2019-11-05 11:17] LABS: Alanine Aminotransferase 36 U/L (16-61); Albumin 2.3 g/dL (3.4-5.0); Bilirubin, Total 0.5 mg/dL (0.2-1.0); Calcium 8.6 mg/dL (8.5-10.1); Magnesium 2.7 mg/dL (1.6-2.6); Phosphorus 3.8 mg/dL (2.5-4.90); Total Protein 7.8 g/dL (6.4-8.2)
[2019-11-05] MEDS: POTASSIUM CHL 20MEQ/100ML 100 ML IV SCH ×2 (11:45→14:21)
[2019-11-05] MEDS ORDERED: SODIUM CHLORIDE 0.9% 1,000 ML IV SCH (11:45)
[2019-11-05] MEDS ORDERED: LABETALOL HCL 5 MG/ML 4ML SYRINGE IV SCH (13:30)
[2019-11-05] MEDS: ONDANSETRON HCL 4 MG/2 ML VIAL IV PRN ×3 (15:38→23:37)
[2019-11-05] MEDS: LABETALOL HCL 5 MG/ML 4ML SYRINGE IV SCH (20:12)
[2019-11-05] MEDS: TPN PER PHARMACY IV NR ×6 (20:19)
[2019-11-05] MEDS ORDERED: SODIUM CHLORIDE 0.9% 500 ML IV ONE (23:30)
[2019-11-05] MEDS ORDERED: HYOSCYAMINE SULF 0.125 MG ODT TAB NG ONE (23:30)
[2019-11-06] VITALS (45 sets, daily range): BP systolic 115–185; BP diastolic 52–117
[2019-11-06] MEDS: ONDANSETRON HCL 4 MG/2 ML VIAL IV PRN ×3 (00:05→19:33)
[2019-11-06] MEDS: ACCU-CHEK COMFORT CURVE STRIP VI SCH ×4 (00:06→18:03)
[2019-11-06] MEDS: hydrALAZINE HCL 20 MG/ML VL IV PRN ×2 (00:18→16:27)
[2019-11-06] MEDS: HYDROmorphone HCL 2 MG/ML VL IV PRN ×5 (03:06→22:33)
[2019-11-06 04:07] LABS: Basophils # (auto) 0 10 ^3/uL (0-0.2); Eosinophils # (auto) 0.3 10 ^3/uL (0-0.8); Lymphocytes # (auto) 1.3 10 ^3/uL (0.4-5.4); White Blood Cell 10.1 10^3/uL (4.4-10.8)
[2019-11-06 04:11] LABS: Basophils % (auto) 0.1 % (0.0-2.0); Eosinophils % (auto) 2.9 % (0.0-7.0); Hematocrit 36.5 % (41.0-53.0); Hemoglobin 10.1 g/dL (13.5-17.5); Lymphocytes % (auto) 13.2 % (10.0-50.0); Mean Corpuscular Hemoglobin 28.6 pg (28.0-32.0); Mean Corpuscular Hgb Conc. 27.6 g/dL (32.0-36.0); Mean Corpuscular Volume 103.9 fL (80.0-100.0); Monocytes # (auto) 1.1 10 ^3/uL (0-1.3); Monocytes % (auto) 11.3 % (0.0-12.0); Neutrophils # (auto) 7.3 10 ^3/uL (1.6-8.6); Neutrophils % (auto) 72.5 % (37.0-80.0); Platelet Count (auto) 436 10^3/uL (140-450); Red Blood Cells 3.51 10^6/uL (4.5-5.90); Red Cell Distribution Width 17.8 % (11.8-14.3)
[2019-11-06] MEDS: PIPERACILLIN-TAZOB 3.375GM 100 ML IV SCH ×4 (04:29→22:21)
[2019-11-06] MEDS: InsuLIN REG 1unit/0.01ml Soln (100units/ml) SC SCH ×3 (06:00→18:00)
[2019-11-06 06:37] LABS: Anion Gap 7 (5-15); Carbon Dioxide 36 mmol/L (21-32); Chloride 101 mmol/L (98-107); Glucose 170 mg/dL (74-106); Potassium 3.1 mmol/L (3.5-5.1); Sodium 144 mmol/L (136-145)
[2019-11-06 06:38] LABS: BUN/Creatinine Ratio 10.8; Blood Urea Nitrogen 16 mg/dL (7-18); GFR African American 65 mL/min; GFR Non-African American 54 mL/min
[2019-11-06] MEDS: LABETALOL HCL 5 MG/ML 4ML SYRINGE IV SCH (06:38)
[2019-11-06 06:39] LABS: Alanine Aminotransferase 45 U/L (16-61); Albumin 2.3 g/dL (3.4-5.0); Alkaline Phosphatase 65 U/L (45-117); Aspartate Aminotransferase 45 U/L (15-37); Bilirubin, Total 0.4 mg/dL (0.2-1.0); Calcium 8.4 mg/dL (8.5-10.1); Magnesium 2.4 mg/dL (1.6-2.6); Phosphorus 4.3 mg/dL (2.5-4.90); Total Protein 7.4 g/dL (6.4-8.2)
[2019-11-06] MEDS: metroNIDAZOLE 500MG/100ML 100 ML IV SCH ×3 (06:40→22:20)
[2019-11-06] MEDS ORDERED: POTASSIUM CHL 20MEQ/100ML 100 ML IV ONE ×2 (07:15→12:15)
[2019-11-06] MEDS: SODIUM CHLOR 0.9% PF (SALINE LOCK) 10ML VIAL/SYR IV SCH ×2 (10:44→22:21)
[2019-11-06] MEDS: NITROGLYCERIN 0.2MG/HR TOPICAL PATCH TD SCH (10:44)
[2019-11-06] MEDS ORDERED: POTASSIUM CHL 20 Meq TABLET PO ONE (15:15)
[2019-11-06] MEDS: LABETALOL HCL 5 MG/ML ML 20ML VIAL IV SCH (18:18)
[2019-11-06] MEDS: TPN PER PHARMACY IV NR ×6 (19:30)
[2019-11-06] MEDS: MULTIPLE VITAMIN IV NR ×5 (19:53)
[2019-11-06] MEDS: FAT EMULSION IV NR ×5 (19:53)
[2019-11-06] MEDS: [UNRECOGNIZED DRUG - OTHER] IV NR ×5 (19:53)
[2019-11-06] MEDS: POTASSIUM CHLORIDE IV NR ×5 (19:53)
[2019-11-07] VITALS (14 sets, daily range): BP systolic 122–169; BP diastolic 83–115
[2019-11-07] MEDS: ONDANSETRON HCL 4 MG/2 ML VIAL IV PRN ×3 (01:33→20:23)
[2019-11-07] MEDS: HYDROmorphone HCL 2 MG/ML VL IV PRN ×5 (02:16→20:23)
[2019-11-07] MEDS: PIPERACILLIN-TAZOB 3.375GM 100 ML IV SCH ×4 (05:19→20:23)
[2019-11-07 05:24] LABS: Albumin 2.3 g/dL (3.4-5.0); Calcium 8.6 mg/dL (8.5-10.1); Magnesium 2.3 mg/dL (1.6-2.6); Potassium 3.8 mmol/L (3.5-5.1)
[2019-11-07 05:25] LABS: Calcium 8.8 mg/dL (8.5-10.1); Potassium 3.5 mmol/L (3.5-5.1)
[2019-11-07 05:28] LABS: BUN/Creatinine Ratio 10.4; BUN/Creatinine Ratio 9.9; Bilirubin, Total 0.4 mg/dL (0.2-1.0); Phosphorus 4.1 mg/dL (2.5-4.90); Total Protein 7.2 g/dL (6.4-8.2)
[2019-11-07] MEDS: hydrALAZINE HCL 20 MG/ML VL IV PRN (05:45)
[2019-11-07] MEDS: ACCU-CHEK COMFORT CURVE STRIP VI SCH ×5 (05:52→22:26)
[2019-11-07] MEDS: InsuLIN REG 1unit/0.01ml Soln (100units/ml) SC SCH ×5 (06:04→22:25)
[2019-11-07] MEDS: LABETALOL HCL 5 MG/ML ML 20ML VIAL IV SCH ×2 (06:31→18:06)
[2019-11-07] MEDS: metroNIDAZOLE 500MG/100ML 100 ML IV SCH ×3 (06:31→20:22)
[2019-11-07] MEDS: SODIUM CHLOR 0.9% PF (SALINE LOCK) 10ML VIAL/SYR IV SCH ×2 (10:00→20:23)
[2019-11-07] MEDS: NITROGLYCERIN 0.2MG/HR TOPICAL PATCH TD SCH (10:37)
[2019-11-07] MEDS ORDERED: LABETALOL HCL 5 MG/ML 4ML SYRINGE IV ONE (11:30)
[2019-11-07] MEDS ORDERED: PHYTONADIONE (VIT K)10 MG/ML 1ML VIAL SUBCUT ONE (13:15)
[2019-11-07] MEDS ORDERED: LABETALOL HCL 5 MG/ML 4ML SYRINGE IV SCH (18:00)
[2019-11-07] MEDS: TPN PER PHARMACY IV NR ×5 (20:00)
[2019-11-07] MEDS: POTASSIUM CHLORIDE IV NR ×5 (20:37)
[2019-11-07] MEDS: FAT EMULSION IV NR ×5 (20:37)
[2019-11-07] MEDS: MULTIPLE VITAMIN IV NR ×5 (20:37)
[2019-11-07] MEDS: [UNRECOGNIZED DRUG - OTHER] IV NR ×5 (20:37)
[2019-11-08] VITALS (8 sets, daily range): BP systolic 114–155; BP diastolic 66–104
[2019-11-08] MEDS: ONDANSETRON HCL 4 MG/2 ML VIAL IV PRN (00:51)
[2019-11-08] MEDS: PIPERACILLIN-TAZOB 3.375GM 100 ML IV SCH ×3 (04:21→17:49)
[2019-11-08] MEDS: InsuLIN REG 1unit/0.01ml Soln (100units/ml) SC SCH ×3 (04:34→17:50)
[2019-11-08] MEDS: ACCU-CHEK COMFORT CURVE STRIP VI SCH ×3 (04:34→17:50)
[2019-11-08] MEDS: LABETALOL HCL 5 MG/ML ML 20ML VIAL IV SCH ×2 (05:06→17:49)
[2019-11-08] MEDS: metroNIDAZOLE 500MG/100ML 100 ML IV SCH ×3 (05:07→21:46)
[2019-11-08 06:07] LABS: Basophils # (auto) 0.1 10 ^3/uL (0-0.2); Basophils % (auto) 0.6 % (0.0-2.0); Eosinophils # (auto) 0.4 10 ^3/uL (0-0.8); Monocytes # (auto) 0.9 10 ^3/uL (0-1.3)
[2019-11-08 06:10] LABS: Eosinophils % (auto) 2.8 % (0.0-7.0); Hemoglobin 10.2 g/dL (13.5-17.5); Lymphocytes # (auto) 1.3 10 ^3/uL (0.4-5.4); Lymphocytes % (auto) 10.5 % (10.0-50.0); Mean Corpuscular Hemoglobin 25.8 pg (28.0-32.0); Mean Corpuscular Hgb Conc. 31.9 g/dL (32.0-36.0); Mean Corpuscular Volume 80.9 fL (80.0-100.0); Monocytes % (auto) 7.4 % (0.0-12.0); Neutrophils % (auto) 78.7 % (37.0-80.0); Platelet Count (auto) 445 10^3/uL (140-450); Red Blood Cells 3.95 10^6/uL (4.5-5.90); Red Cell Distribution Width 16.6 % (11.8-14.3); White Blood Cell 12.7 10^3/uL (4.4-10.8)
[2019-11-08 06:11] LABS: Potassium 3.2 mmol/L (3.5-5.1)
[2019-11-08 06:13] LABS: INR 1.52 (0.9-1.15)
[2019-11-08 06:23] LABS: Albumin 2.3 g/dL (3.4-5.0); BUN/Creatinine Ratio 12.4; Bilirubin, Total 0.4 mg/dL (0.2-1.0); Calcium 8.9 mg/dL (8.5-10.1); Magnesium 2.3 mg/dL (1.6-2.6); Phosphorus 3.7 mg/dL (2.5-4.90); Total Protein 7.7 g/dL (6.4-8.2)
[2019-11-08] MEDS ORDERED: POTASSIUM CHL 20MEQ/100ML 100 ML IV ONE ×2 (06:45→11:30)
[2019-11-08] MEDS: NITROGLYCERIN 0.2MG/HR TOPICAL PATCH TD SCH (09:39)
[2019-11-08] MEDS: SODIUM CHLOR 0.9% PF (SALINE LOCK) 10ML VIAL/SYR IV SCH ×2 (09:40→22:00)
[2019-11-08] MEDS ORDERED: PHYTONADIONE (VIT K)10 MG/ML 1ML VIAL SUBCUT ONE ×2 (09:45→11:45)
[2019-11-08] MEDS: KETOROLAC TROMETH 30 MG/ML 1ML VIAL IV PRN ×2 (09:52→16:42)
[2019-11-08] MEDS: SOD CHL 0.45% WITH 20MEQ KCL 1,000 ML IV SCH (12:05)
[2019-11-08] MEDS: hydrALAZINE HCL 20 MG/ML VL IV PRN (13:07)
[2019-11-08] MEDS: TPN PER PHARMACY IV NR ×12 (19:44→20:05)
[2019-11-09] MEDS: ACCU-CHEK COMFORT CURVE STRIP VI SCH ×4 (00:02→18:18)
[2019-11-09] MEDS: PIPERACILLIN-TAZOB 3.375GM 100 ML IV SCH ×5 (00:03→22:47)
[2019-11-09] MEDS: ONDANSETRON HCL 4 MG/2 ML VIAL IV PRN ×3 (02:23→18:10)
[2019-11-09 04:00] VITALS: BP 153/90
[2019-11-09 05:41] LABS: Basophils # (auto) 0.1 10 ^3/uL (0-0.2); Basophils % (auto) 0.4 % (0.0-2.0); Eosinophils # (auto) 0.3 10 ^3/uL (0-0.8); Hematocrit 32.5 % (41.0-53.0); Hemoglobin 10.2 g/dL (13.5-17.5); Lymphocytes # (auto) 1.8 10 ^3/uL (0.4-5.4); Lymphocytes % (auto) 10.9 % (10.0-50.0); Mean Corpuscular Hemoglobin 25.2 pg (28.0-32.0); Mean Corpuscular Hgb Conc. 31.5 g/dL (32.0-36.0); Mean Corpuscular Volume 80.1 fL (80.0-100.0); Monocytes # (auto) 1.2 10 ^3/uL (0-1.3); Monocytes % (auto) 7.2 % (0.0-12.0); Neutrophils # (auto) 12.9 10 ^3/uL (1.6-8.6); Neutrophils % (auto) 79.5 % (37.0-80.0); Platelet Count (auto) 496 10^3/uL (140-450); Red Blood Cells 4.06 10^6/uL (4.5-5.90); Red Cell Distribution Width 16.7 % (11.8-14.3); White Blood Cell 16.2 10^3/uL (4.4-10.8)
[2019-11-09] MEDS: SOD CHL 0.45% WITH 20MEQ KCL 1,000 ML IV SCH (05:45)
[2019-11-09 05:54] LABS: INR 1.18 (0.9-1.15)
[2019-11-09] MEDS: metroNIDAZOLE 500MG/100ML 100 ML IV SCH ×3 (05:54→22:47)
[2019-11-09] MEDS: LABETALOL HCL 5 MG/ML ML 20ML VIAL IV SCH ×2 (05:54→18:29)
[2019-11-09 05:57] LABS: Albumin 2.4 g/dL (3.4-5.0); Calcium 9.1 mg/dL (8.5-10.1); Magnesium 2.1 mg/dL (1.6-2.6); Potassium 3.1 mmol/L (3.5-5.1)
[2019-11-09] MEDS: InsuLIN REG 1unit/0.01ml Soln (100units/ml) SC SCH ×4 (06:00→18:00)
[2019-11-09 06:01] LABS: BUN/Creatinine Ratio 16.4; Bilirubin, Total 0.5 mg/dL (0.2-1.0); Phosphorus 4.1 mg/dL (2.5-4.90); Total Protein 7.8 g/dL (6.4-8.2)
[2019-11-09 08:00] VITALS: BP 133/101
[2019-11-09] MEDS: POTASSIUM CHL 20MEQ/100ML 100 ML IV SCH ×2 (08:43→11:12)
[2019-11-09] MEDS: HYDROmorphone HCL 2 MG/ML VL IV PRN ×4 (08:43→18:12)
[2019-11-09] MEDS: NITROGLYCERIN 0.2MG/HR TOPICAL PATCH TD SCH (09:56)
[2019-11-09] MEDS: SODIUM CHLOR 0.9% PF (SALINE LOCK) 10ML VIAL/SYR IV SCH ×2 (11:36→22:47)
[2019-11-09 12:00] VITALS: BP 126/93
[2019-11-09 16:00] VITALS: BP 133/93
[2019-11-09 18:34] LABS: BUN/Creatinine Ratio 15.7; Calcium 7.8 mg/dL (8.5-10.1)
[2019-11-09 18:43] LABS: Potassium 5.7 mmol/L (3.5-5.1)
[2019-11-09] MEDS: TPN PER PHARMACY IV NR ×7 (19:51)
[2019-11-09] MEDS ORDERED: TPN PER PHARMACY IV NR ×8 (20:00)
[2019-11-09 20:24] VITALS: BP 128/85
[2019-11-09 21:08] LABS: Calcium 8.6 mg/dL (8.5-10.1); Potassium 3.1 mmol/L (3.5-5.1)
[2019-11-10] VITALS (7 sets, daily range): BP systolic 132–153; BP diastolic 84–101
[2019-11-10] MEDS: HYDROmorphone HCL 2 MG/ML VL IV PRN ×4 (01:14→18:49)
[2019-11-10] MEDS: ONDANSETRON HCL 4 MG/2 ML VIAL IV PRN ×4 (01:31→18:48)
[2019-11-10] MEDS: SOD CHL 0.45% WITH 20MEQ KCL 1,000 ML IV SCH ×2 (05:44→22:34)
[2019-11-10] MEDS: PIPERACILLIN-TAZOB 3.375GM 100 ML IV SCH ×4 (05:45→23:29)
[2019-11-10] MEDS: LABETALOL HCL 5 MG/ML ML 20ML VIAL IV SCH ×2 (05:46→18:48)
[2019-11-10] MEDS: metroNIDAZOLE 500MG/100ML 100 ML IV SCH ×3 (05:46→22:34)
[2019-11-10] MEDS: InsuLIN REG 1unit/0.01ml Soln (100units/ml) SC SCH ×5 (06:00→23:57)
[2019-11-10] MEDS: ACCU-CHEK COMFORT CURVE STRIP VI SCH ×5 (06:00→23:57)
[2019-11-10 07:01] LABS: Basophils # (auto) 0.1 10 ^3/uL (0-0.2); Basophils % (auto) 0.5 % (0.0-2.0); Hemoglobin 9.4 g/dL (13.5-17.5); Monocytes # (auto) 0.9 10 ^3/uL (0-1.3); White Blood Cell 12.2 10^3/uL (4.4-10.8)
[2019-11-10 07:03] LABS: Eosinophils # (auto) 0.4 10 ^3/uL (0-0.8); Eosinophils % (auto) 2.9 % (0.0-7.0); Hematocrit 28.9 % (41.0-53.0); Lymphocytes # (auto) 1.3 10 ^3/uL (0.4-5.4); Lymphocytes % (auto) 10.4 % (10.0-50.0); Mean Corpuscular Hemoglobin 26.4 pg (28.0-32.0); Mean Corpuscular Hgb Conc. 32.6 g/dL (32.0-36.0); Monocytes % (auto) 7.3 % (0.0-12.0); Neutrophils # (auto) 9.6 10 ^3/uL (1.6-8.6); Neutrophils % (auto) 78.9 % (37.0-80.0); Nucleated Red Blood Cells % 0.1 %; Platelet Count (auto) 376 10^3/uL (140-450); Red Blood Cells 3.57 10^6/uL (4.5-5.90)
[2019-11-10 07:26] LABS: INR 1.19 (0.9-1.15)
[2019-11-10 07:30] LABS: Albumin 2.3 g/dL (3.4-5.0); Calcium 8.2 mg/dL (8.5-10.1); Magnesium 2.2 mg/dL (1.6-2.6)
[2019-11-10 07:36] LABS: Bilirubin, Total 0.6 mg/dL (0.2-1.0); Phosphorus 3.8 mg/dL (2.5-4.90)
[2019-11-10 07:39] LABS: Potassium 2.9 mmol/L (3.5-5.1)
[2019-11-10] MEDS: POTASSIUM CHL 20MEQ/100ML 100 ML IV SCH ×4 (08:55→22:33)
[2019-11-10] MEDS: SODIUM CHLOR 0.9% PF (SALINE LOCK) 10ML VIAL/SYR IV SCH ×2 (11:23→22:13)
[2019-11-10] MEDS: NITROGLYCERIN 0.2MG/HR TOPICAL PATCH TD SCH (11:24)
[2019-11-10] MEDS ORDERED: TPN PER PHARMACY IV NR ×9 (20:00)
[2019-11-11] VITALS: BP 141/98
[2019-11-11] MEDS: HYDROmorphone HCL 2 MG/ML VL IV PRN ×4 (02:03→23:58)
[2019-11-11 04:00] VITALS: BP 143/105
[2019-11-11] MEDS: PIPERACILLIN-TAZOB 3.375GM 100 ML IV SCH ×4 (04:32→23:36)
[2019-11-11] MEDS: LABETALOL HCL 5 MG/ML ML 20ML VIAL IV SCH ×2 (06:00→18:40)
[2019-11-11] MEDS: InsuLIN REG 1unit/0.01ml Soln (100units/ml) SC SCH ×3 (06:00→18:00)
[2019-11-11] MEDS: ACCU-CHEK COMFORT CURVE STRIP VI SCH ×3 (06:29→18:40)
[2019-11-11 06:43] LABS: Basophils # (auto) 0.1 10 ^3/uL (0-0.2); Eosinophils # (auto) 0.4 10 ^3/uL (0-0.8); Hemoglobin 10.5 g/dL (13.5-17.5)
[2019-11-11 06:44] LABS: Basophils % (auto) 0.9 % (0.0-2.0); Eosinophils % (auto) 3.2 % (0.0-7.0); Hematocrit 33.3 % (41.0-53.0); Lymphocytes # (auto) 1.4 10 ^3/uL (0.4-5.4); Mean Corpuscular Hemoglobin 25.6 pg (28.0-32.0); Mean Corpuscular Hgb Conc. 31.7 g/dL (32.0-36.0); Mean Corpuscular Volume 80.7 fL (80.0-100.0); Monocytes # (auto) 1.2 10 ^3/uL (0-1.3); Neutrophils # (auto) 10.5 10 ^3/uL (1.6-8.6); Neutrophils % (auto) 76.9 % (37.0-80.0); Platelet Count (auto) 349 10^3/uL (140-450); Red Blood Cells 4.12 10^6/uL (4.5-5.90); Red Cell Distribution Width 16.8 % (11.8-14.3); White Blood Cell 13.6 10^3/uL (4.4-10.8)
[2019-11-11 06:59] LABS: Albumin 2.5 g/dL (3.4-5.0); Calcium 9.1 mg/dL (8.5-10.1); Magnesium 2.4 mg/dL (1.6-2.6); Potassium 3.1 mmol/L (3.5-5.1)
[2019-11-11 07:03] LABS: BUN/Creatinine Ratio 14.5; Bilirubin, Total 0.5 mg/dL (0.2-1.0)
[2019-11-11] MEDS: metroNIDAZOLE 500MG/100ML 100 ML IV SCH ×3 (07:21→21:14)
[2019-11-11 07:35] VITALS: BP 122/69
[2019-11-11] MEDS: POTASSIUM CHL 20MEQ/100ML 100 ML IV SCH ×2 (10:15→12:32)
[2019-11-11] MEDS: NITROGLYCERIN 0.2MG/HR TOPICAL PATCH TD SCH (10:16)
[2019-11-11] MEDS: ENOXAPARIN SOD 30 MG/0.3 ML SYRINGE SC SCH (10:17)
[2019-11-11] MEDS: SODIUM CHLOR 0.9% PF (SALINE LOCK) 10ML VIAL/SYR IV SCH ×2 (10:17→21:07)
[2019-11-11] MEDS: PANTOPRAZOLE 40 MG/10 ML VIAL INJ IV SCH (10:18)
[2019-11-11 11:45] VITALS: BP 137/95
[2019-11-11 12:19] LABS: Protein, Urine 59.4 mg/dL (0.0-11.9)
[2019-11-11] MEDS: SOD CHL 0.45% WITH 20MEQ KCL 1,000 ML IV SCH ×2 (12:32→19:35)
[2019-11-11] MEDS: ONDANSETRON HCL 4 MG/2 ML VIAL IV PRN (12:33)
[2019-11-11] MEDS ORDERED: POTASSIUM CHL 20MEQ/100ML 100 ML IV ONE (14:30)
[2019-11-11 15:40] VITALS: BP 148/100
[2019-11-11 20:00] VITALS: BP 149/100
[2019-11-11] MEDS ORDERED: TPN PER PHARMACY IV NR ×7 (20:00)
[2019-11-12] VITALS (7 sets, daily range): BP systolic 122–166; BP diastolic 79–103
[2019-11-12] MEDS: ACCU-CHEK COMFORT CURVE STRIP VI SCH ×4 (00:04→21:44)
[2019-11-12] MEDS: SOD CHL 0.45% WITH 20MEQ KCL 1,000 ML IV SCH (01:10)
[2019-11-12] MEDS: HYDROmorphone HCL 2 MG/ML VL IV PRN ×4 (04:22→22:20)
[2019-11-12] MEDS: PIPERACILLIN-TAZOB 3.375GM 100 ML IV SCH ×3 (04:41→18:16)
[2019-11-12] MEDS: LABETALOL HCL 5 MG/ML ML 20ML VIAL IV SCH ×2 (06:05→18:16)
[2019-11-12] MEDS: InsuLIN REG 1unit/0.01ml Soln (100units/ml) SC SCH ×4 (06:07→18:00)
[2019-11-12] MEDS: metroNIDAZOLE 500MG/100ML 100 ML IV SCH ×3 (06:08→23:35)
[2019-11-12 06:10] LABS: Basophils # (auto) 0.1 10 ^3/uL (0-0.2); Basophils % (auto) 0.5 % (0.0-2.0); Eosinophils # (auto) 0.3 10 ^3/uL (0-0.8); Hematocrit 31.2 % (41.0-53.0); Hemoglobin 10.2 g/dL (13.5-17.5); Lymphocytes # (auto) 1.2 10 ^3/uL (0.4-5.4); Mean Corpuscular Hemoglobin 26.3 pg (28.0-32.0); Mean Corpuscular Hgb Conc. 32.5 g/dL (32.0-36.0); Mean Corpuscular Volume 80.8 fL (80.0-100.0); Monocytes % (auto) 7.2 % (0.0-12.0); Neutrophils % (auto) 81.3 % (37.0-80.0); Platelet Count (auto) 403 10^3/uL (140-450); Red Blood Cells 3.86 10^6/uL (4.5-5.90); Red Cell Distribution Width 16.7 % (11.8-14.3); White Blood Cell 13.5 10^3/uL (4.4-10.8)
[2019-11-12 06:26] LABS: INR 1.15 (0.9-1.15)
[2019-11-12 06:28] LABS: Albumin 2.4 g/dL (3.4-5.0); Calcium 8.6 mg/dL (8.5-10.1); Potassium 3.7 mmol/L (3.5-5.1)
[2019-11-12 06:30] LABS: Pre Albumin 26.4 mg/dL (20.0-40.0)
[2019-11-12 06:33] LABS: BUN/Creatinine Ratio 14.8; Bilirubin, Total 0.6 mg/dL (0.2-1.0); Phosphorus 2.2 mg/dL (2.5-4.90); Total Protein 7.7 g/dL (6.4-8.2)
[2019-11-12] MEDS: SODIUM CHLOR 0.9% PF (SALINE LOCK) 10ML VIAL/SYR IV SCH ×2 (10:42→23:35)
[2019-11-12] MEDS: PANTOPRAZOLE 40 MG/10 ML VIAL INJ IV SCH (10:43)
[2019-11-12] MEDS: ENOXAPARIN SOD 30 MG/0.3 ML SYRINGE SC SCH (10:43)
[2019-11-12] MEDS: NITROGLYCERIN 0.2MG/HR TOPICAL PATCH TD SCH (10:45)
[2019-11-12] MEDS ORDERED: SODIUM PHOSPHATES 24 MEQ in SODIUM CHL 0.9% 100 ML IV ONE (11:30)
[2019-11-12] MEDS: POTASSIUM CHLORIDE 10 MEQ in SOD CHL 0.45% WITH 20MEQ KCL 1,000 ML IV SCH ×2 (17:21→19:53)
[2019-11-12] MEDS ORDERED: LABETALOL HCL 5 MG/ML 4ML SYRINGE IV ONE (20:00)
[2019-11-12] MEDS ORDERED: TPN PER PHARMACY IV NR ×8 (20:00)
[2019-11-12] MEDS: POTASSIUM CHLORIDE IV SCH (22:08)
[2019-11-12] MEDS: SOD CHL 0.45% IV SCH (22:08)
[2019-11-13] MEDS: PIPERACILLIN-TAZOB 3.375GM 100 ML IV SCH ×5 (00:35→23:14)
[2019-11-13] MEDS: ACCU-CHEK COMFORT CURVE STRIP VI SCH ×4 (00:36→18:07)
[2019-11-13 05:00] VITALS: BP 152/110
[2019-11-13 05:31] LABS: Basophils # (auto) 0.1 10 ^3/uL (0-0.2); Basophils % (auto) 0.6 % (0.0-2.0); Eosinophils # (auto) 0.2 10 ^3/uL (0-0.8); Eosinophils % (auto) 2.3 % (0.0-7.0); Hemoglobin 9.6 g/dL (13.5-17.5); Lymphocytes # (auto) 1.2 10 ^3/uL (0.4-5.4); Lymphocytes % (auto) 11.1 % (10.0-50.0); Mean Corpuscular Hemoglobin 26.6 pg (28.0-32.0); Mean Corpuscular Hgb Conc. 33.2 g/dL (32.0-36.0); Mean Corpuscular Volume 80.3 fL (80.0-100.0); Monocytes % (auto) 9.5 % (0.0-12.0); Neutrophils % (auto) 76.5 % (37.0-80.0); Platelet Count (auto) 346 10^3/uL (140-450); Red Blood Cells 3.62 10^6/uL (4.5-5.90); Red Cell Distribution Width 17.2 % (11.8-14.3); White Blood Cell 10.4 10^3/uL (4.4-10.8)
[2019-11-13] MEDS: metroNIDAZOLE 500MG/100ML 100 ML IV SCH ×3 (05:44→22:11)
[2019-11-13] MEDS: HYDROmorphone HCL 2 MG/ML VL IV PRN ×3 (05:44→14:05)
[2019-11-13] MEDS: LABETALOL HCL 5 MG/ML ML 20ML VIAL IV SCH ×2 (05:45→18:07)
[2019-11-13 05:48] LABS: Potassium 3.5 mmol/L (3.5-5.1)
[2019-11-13 05:59] LABS: Albumin 2.3 g/dL (3.4-5.0); BUN/Creatinine Ratio 14.7; Bilirubin, Total 0.5 mg/dL (0.2-1.0); Calcium 8.4 mg/dL (8.5-10.1); Magnesium 1.8 mg/dL (1.6-2.6); Phosphorus 3.2 mg/dL (2.5-4.90); Total Protein 7.2 g/dL (6.4-8.2)
[2019-11-13] MEDS: InsuLIN REG 1unit/0.01ml Soln (100units/ml) SC SCH ×4 (06:00→18:00)
[2019-11-13] MEDS: SOD CHL 0.45% IV SCH ×3 (06:54→20:00)
[2019-11-13] MEDS: POTASSIUM CHLORIDE IV SCH ×3 (06:54→20:00)
[2019-11-13 09:00] VITALS: BP 158/98
[2019-11-13] MEDS: PANTOPRAZOLE 40 MG/10 ML VIAL INJ IV SCH (09:54)
[2019-11-13] MEDS: SODIUM CHLOR 0.9% PF (SALINE LOCK) 10ML VIAL/SYR IV SCH ×2 (09:55→22:12)
[2019-11-13] MEDS: ENOXAPARIN SOD 30 MG/0.3 ML SYRINGE SC SCH (09:55)
[2019-11-13] MEDS: NITROGLYCERIN 0.2MG/HR TOPICAL PATCH TD SCH (09:56)
[2019-11-13 12:25] VITALS: BP 154/90
[2019-11-13 12:39] VITALS: BP 154/90
[2019-11-13 16:21] VITALS: BP 142/92
[2019-11-13] MEDS: ACETAMINOPHEN 325 MG TAB PO PRN (16:52)
[2019-11-13] MEDS ORDERED: TPN PER PHARMACY IV NR ×8 (20:00)
[2019-11-13 22:00] VITALS: BP 162/101
[2019-11-14] MEDS: hydrALAZINE HCL 20 MG/ML VL IV PRN ×3 (00:55→21:44)
[2019-11-14] MEDS: HYDROmorphone HCL 2 MG/ML VL IV PRN ×4 (01:02→22:58)
[2019-11-14 05:00] VITALS: BP 131/93
[2019-11-14 05:21] LABS: Basophils # (auto) 0.1 10 ^3/uL (0-0.2); Basophils % (auto) 0.6 % (0.0-2.0); Eosinophils # (auto) 0.3 10 ^3/uL (0-0.8); Eosinophils % (auto) 2.6 % (0.0-7.0); Hematocrit 28.9 % (41.0-53.0); Hemoglobin 9.6 g/dL (13.5-17.5); Lymphocytes % (auto) 9.1 % (10.0-50.0); Mean Corpuscular Hemoglobin 26.6 pg (28.0-32.0); Mean Corpuscular Hgb Conc. 33.2 g/dL (32.0-36.0); Neutrophils # (auto) 8.9 10 ^3/uL (1.6-8.6); Neutrophils % (auto) 78.7 % (37.0-80.0); Platelet Count (auto) 313 10^3/uL (140-450); Red Blood Cells 3.61 10^6/uL (4.5-5.90); White Blood Cell 11.3 10^3/uL (4.4-10.8)
[2019-11-14] MEDS: POTASSIUM CHLORIDE IV SCH ×3 (05:21→20:00)
[2019-11-14] MEDS: PIPERACILLIN-TAZOB 3.375GM 100 ML IV SCH ×4 (05:21→22:47)
[2019-11-14] MEDS: SOD CHL 0.45% IV SCH ×3 (05:21→20:00)
[2019-11-14] MEDS: metroNIDAZOLE 500MG/100ML 100 ML IV SCH ×3 (05:22→21:27)
[2019-11-14] MEDS: LABETALOL HCL 5 MG/ML ML 20ML VIAL IV SCH ×2 (05:23→18:14)
[2019-11-14 05:39] LABS: Albumin 2.2 g/dL (3.4-5.0); Calcium 8.2 mg/dL (8.5-10.1); Magnesium 1.8 mg/dL (1.6-2.6); Potassium 3.6 mmol/L (3.5-5.1)
[2019-11-14 05:43] LABS: BUN/Creatinine Ratio 12.4; Bilirubin, Total 0.9 mg/dL (0.2-1.0); Phosphorus 2.7 mg/dL (2.5-4.90); Total Protein 7.1 g/dL (6.4-8.2)
[2019-11-14] MEDS: InsuLIN REG 1unit/0.01ml Soln (100units/ml) SC SCH ×5 (06:00→23:51)
[2019-11-14] MEDS: ACCU-CHEK COMFORT CURVE STRIP VI SCH ×5 (06:00→23:51)
[2019-11-14 08:42] VITALS: BP 124/89
[2019-11-14] MEDS: PANTOPRAZOLE 40 MG/10 ML VIAL INJ IV SCH (09:31)
[2019-11-14] MEDS: ENOXAPARIN SOD 30 MG/0.3 ML SYRINGE SC SCH (09:31)
[2019-11-14] MEDS: NITROGLYCERIN 0.2MG/HR TOPICAL PATCH TD SCH (09:33)
[2019-11-14] MEDS: SODIUM CHLOR 0.9% PF (SALINE LOCK) 10ML VIAL/SYR IV SCH ×2 (09:37→21:27)
[2019-11-14] MEDS: ACETAMINOPHEN 325 MG TAB PO PRN (10:43)
[2019-11-14 13:00] VITALS: BP 136/107
[2019-11-14] MEDS ORDERED: MAGNESIUM SULFATE 1GM/100ML 100 ML IV ONE (13:45)
[2019-11-14 14:33] VITALS: BP 130/87
[2019-11-14 16:56] VITALS: BP 154/102
[2019-11-14] MEDS ORDERED: TPN PER PHARMACY IV NR ×7 (20:00)
[2019-11-14 22:10] VITALS: BP 158/87
[2019-11-15] MEDS: SOD CHL 0.45% IV SCH ×2 (02:35→13:48)
[2019-11-15] MEDS: POTASSIUM CHLORIDE IV SCH ×2 (02:35→13:48)
[2019-11-15] MEDS: ONDANSETRON HCL 4 MG/2 ML VIAL IV PRN (02:45)
[2019-11-15] MEDS: HYDROmorphone HCL 2 MG/ML VL IV PRN ×4 (02:45→21:10)
[2019-11-15] MEDS: PIPERACILLIN-TAZOB 3.375GM 100 ML IV SCH ×4 (04:45→22:53)
[2019-11-15 05:14] LABS: Basophils # (auto) 0.1 10 ^3/uL (0-0.2); Basophils % (auto) 0.7 % (0.0-2.0); Eosinophils # (auto) 0.3 10 ^3/uL (0-0.8); Hematocrit 27.6 % (41.0-53.0); Monocytes # (auto) 1.1 10 ^3/uL (0-1.3)
[2019-11-15 05:16] LABS: Eosinophils % (auto) 2.6 % (0.0-7.0); Lymphocytes # (auto) 1.1 10 ^3/uL (0.4-5.4); Lymphocytes % (auto) 10.4 % (10.0-50.0); Mean Corpuscular Hemoglobin 26.4 pg (28.0-32.0); Mean Corpuscular Hgb Conc. 32.7 g/dL (32.0-36.0); Mean Corpuscular Volume 80.7 fL (80.0-100.0); Neutrophils # (auto) 8.2 10 ^3/uL (1.6-8.6); Neutrophils % (auto) 76.3 % (37.0-80.0); Platelet Count (auto) 321 10^3/uL (140-450); Red Blood Cells 3.42 10^6/uL (4.5-5.90); Red Cell Distribution Width 17.6 % (11.8-14.3); White Blood Cell 10.7 10^3/uL (4.4-10.8)
[2019-11-15 05:18] VITALS: BP 127/83
[2019-11-15] MEDS: LABETALOL HCL 5 MG/ML ML 20ML VIAL IV SCH ×2 (05:30→17:40)
[2019-11-15 05:34] LABS: Potassium 3.8 mmol/L (3.5-5.1)
[2019-11-15 05:41] LABS: Albumin 2.2 g/dL (3.4-5.0); BUN/Creatinine Ratio 9.7; Bilirubin, Total 0.4 mg/dL (0.2-1.0); Calcium 8.4 mg/dL (8.5-10.1); Magnesium 2.4 mg/dL (1.6-2.6); Phosphorus 2.9 mg/dL (2.5-4.90); Total Protein 6.8 g/dL (6.4-8.2)
[2019-11-15] MEDS: ACCU-CHEK COMFORT CURVE STRIP VI SCH ×3 (05:52→17:39)
[2019-11-15] MEDS: InsuLIN REG 1unit/0.01ml Soln (100units/ml) SC SCH ×3 (05:53→17:39)
[2019-11-15 05:54] VITALS: BP 146/98
[2019-11-15] MEDS: metroNIDAZOLE 500MG/100ML 100 ML IV SCH ×3 (06:48→22:53)
[2019-11-15 09:00] VITALS: BP 143/95
[2019-11-15] MEDS: ENOXAPARIN SOD 30 MG/0.3 ML SYRINGE SC SCH (09:13)
[2019-11-15] MEDS: PANTOPRAZOLE 40 MG/10 ML VIAL INJ IV SCH (09:13)
[2019-11-15] MEDS: NITROGLYCERIN 0.2MG/HR TOPICAL PATCH TD SCH (09:14)
[2019-11-15] MEDS: SODIUM CHLOR 0.9% PF (SALINE LOCK) 10ML VIAL/SYR IV SCH ×2 (09:50→22:53)
[2019-11-15 12:30] VITALS: BP 144/93
[2019-11-15] MEDS: ACETAMINOPHEN 325 MG TAB PO PRN (14:42)
[2019-11-15 16:41] VITALS: BP 137/83
[2019-11-15] MEDS ORDERED: TPN PER PHARMACY IV NR ×8 (20:00)
[2019-11-15 21:34] VITALS: BP 139/85
[2019-11-16] MEDS: ACCU-CHEK COMFORT CURVE STRIP VI SCH ×4 (00:06→17:53)
[2019-11-16] MEDS: SOD CHL 0.45% IV SCH ×4 (00:17→20:00)
[2019-11-16] MEDS: POTASSIUM CHLORIDE IV SCH ×4 (00:17→20:00)
[2019-11-16] MEDS: HYDROmorphone HCL 2 MG/ML VL IV PRN ×5 (02:14→22:52)
[2019-11-16] MEDS: PIPERACILLIN-TAZOB 3.375GM 100 ML IV SCH ×4 (05:06→22:50)
[2019-11-16 05:39] VITALS: BP 152/93
[2019-11-16] MEDS: InsuLIN REG 1unit/0.01ml Soln (100units/ml) SC SCH ×4 (06:00→17:53)
[2019-11-16] MEDS: LABETALOL HCL 5 MG/ML ML 20ML VIAL IV SCH ×2 (06:12→17:51)
[2019-11-16] MEDS: metroNIDAZOLE 500MG/100ML 100 ML IV SCH ×3 (06:27→22:50)
[2019-11-16 09:00] VITALS: BP 140/95
[2019-11-16] MEDS: PANTOPRAZOLE 40 MG/10 ML VIAL INJ IV SCH (10:11)
[2019-11-16] MEDS: ENOXAPARIN SOD 30 MG/0.3 ML SYRINGE SC SCH (10:11)
[2019-11-16] MEDS: NITROGLYCERIN 0.2MG/HR TOPICAL PATCH TD SCH (10:12)
[2019-11-16] MEDS: SODIUM CHLOR 0.9% PF (SALINE LOCK) 10ML VIAL/SYR IV SCH ×2 (10:13→22:50)
[2019-11-16 12:31] LABS: BUN/Creatinine Ratio 7.9; Potassium 3.5 mmol/L (3.5-5.1)
[2019-11-16 12:32] LABS: Albumin 2.3 g/dL (3.4-5.0); Bilirubin, Total 0.3 mg/dL (0.2-1.0); Calcium 8.3 mg/dL (8.5-10.1); Magnesium 2.1 mg/dL (1.6-2.6); Phosphorus 3.7 mg/dL (2.5-4.90); Total Protein 6.8 g/dL (6.4-8.2)
[2019-11-16 13:00] VITALS: BP 159/98
[2019-11-16] MEDS: hydrALAZINE HCL 20 MG/ML VL IV PRN (14:26)
[2019-11-16 14:32] VITALS: BP 143/93
[2019-11-16 17:00] VITALS: BP 141/98
[2019-11-16] MEDS: ACETAMINOPHEN 325 MG TAB PO PRN (17:02)
[2019-11-16] MEDS ORDERED: TPN PER PHARMACY IV NR ×8 (20:00)
[2019-11-16 22:00] VITALS: BP 148/89
[2019-11-17] MEDS: ACCU-CHEK COMFORT CURVE STRIP VI SCH ×4 (00:39→17:28)
[2019-11-17] MEDS: POTASSIUM CHLORIDE IV SCH ×3 (02:28→20:38)
[2019-11-17] MEDS: SOD CHL 0.45% IV SCH ×3 (02:28→20:38)
[2019-11-17] MEDS: HYDROmorphone HCL 2 MG/ML VL IV PRN ×2 (02:31→10:28)
[2019-11-17] MEDS: PIPERACILLIN-TAZOB 3.375GM 100 ML IV SCH ×4 (04:58→23:02)
[2019-11-17 05:00] VITALS: BP 146/102
[2019-11-17] MEDS: InsuLIN REG 1unit/0.01ml Soln (100units/ml) SC SCH ×4 (06:00→17:30)
[2019-11-17 06:08] LABS: Basophils # (auto) 0 10 ^3/uL (0-0.2); Basophils % (auto) 0.5 % (0.0-2.0); Eosinophils # (auto) 0.2 10 ^3/uL (0-0.8); Eosinophils % (auto) 2.9 % (0.0-7.0); Hematocrit 25.7 % (41.0-53.0); Hemoglobin 8.6 g/dL (13.5-17.5); Lymphocytes % (auto) 11.8 % (10.0-50.0); Mean Corpuscular Hemoglobin 27.1 pg (28.0-32.0); Mean Corpuscular Hgb Conc. 33.4 g/dL (32.0-36.0); Monocytes % (auto) 11.2 % (0.0-12.0); Neutrophils # (auto) 6.3 10 ^3/uL (1.6-8.6); Neutrophils % (auto) 73.6 % (37.0-80.0); Platelet Count (auto) 262 10^3/uL (140-450); Red Blood Cells 3.17 10^6/uL (4.5-5.90); Red Cell Distribution Width 17.9 % (11.8-14.3); White Blood Cell 8.5 10^3/uL (4.4-10.8)
[2019-11-17] MEDS: metroNIDAZOLE 500MG/100ML 100 ML IV SCH ×3 (06:17→23:01)
[2019-11-17] MEDS: LABETALOL HCL 5 MG/ML ML 20ML VIAL IV SCH (06:20)
[2019-11-17 06:22] LABS: Potassium 3.6 mmol/L (3.5-5.1)
[2019-11-17 07:09] LABS: BUN/Creatinine Ratio 7.3; Calcium 8.4 mg/dL (8.5-10.1)
[2019-11-17 07:10] LABS: Albumin 2.2 g/dL (3.4-5.0); Bilirubin, Total 0.4 mg/dL (0.2-1.0); Magnesium 2.4 mg/dL (1.6-2.6); Phosphorus 3.4 mg/dL (2.5-4.90); Total Protein 6.6 g/dL (6.4-8.2)
[2019-11-17 09:00] VITALS: BP 152/90
[2019-11-17] MEDS: NITROGLYCERIN 0.2MG/HR TOPICAL PATCH TD SCH (10:00)
[2019-11-17] MEDS: PANTOPRAZOLE 40 MG/10 ML VIAL INJ IV SCH (10:26)
[2019-11-17] MEDS: ENOXAPARIN SOD 30 MG/0.3 ML SYRINGE SC SCH (10:26)
[2019-11-17] MEDS: SODIUM CHLOR 0.9% PF (SALINE LOCK) 10ML VIAL/SYR IV SCH ×2 (10:26→23:01)
[2019-11-17] MEDS: hydrALAZINE HCL 20 MG/ML VL IV PRN (10:59)
[2019-11-17] MEDS ORDERED: HCTZ 25 MG TAB PO ONE (12:00)
[2019-11-17] MEDS ORDERED: LISINOPRIL 20 MG TAB PO ONE (12:30)
[2019-11-17 13:42] VITALS: BP 161/94
[2019-11-17 17:00] VITALS: BP 119/66
[2019-11-17] MEDS: HYDROcodone-ACET 5/325MG TAB PO PRN ×2 (17:27→23:02)
[2019-11-17] MEDS: TPN PER PHARMACY IV NR ×7 (20:27)
[2019-11-17 22:00] VITALS: BP 143/88
[2019-11-18] MEDS: ACCU-CHEK COMFORT CURVE STRIP VI SCH ×4 (00:14→17:50)
[2019-11-18] MEDS: SOD CHL 0.45% IV SCH ×3 (04:00→20:23)
[2019-11-18] MEDS: POTASSIUM CHLORIDE IV SCH ×3 (04:00→20:23)
[2019-11-18] MEDS: hydrALAZINE HCL 20 MG/ML VL IV PRN (04:33)
[2019-11-18] MEDS: PIPERACILLIN-TAZOB 3.375GM 100 ML IV SCH ×4 (04:33→23:13)
[2019-11-18 05:00] VITALS: BP 163/105
[2019-11-18] MEDS: InsuLIN REG 1unit/0.01ml Soln (100units/ml) SC SCH ×4 (06:00→17:50)
[2019-11-18 06:40] VITALS: BP 141/91
[2019-11-18] MEDS: metroNIDAZOLE 500MG/100ML 100 ML IV SCH ×3 (06:42→22:01)
[2019-11-18 10:00] VITALS: BP 157/99
[2019-11-18] MEDS: ENOXAPARIN SOD 30 MG/0.3 ML SYRINGE SC SCH (10:20)
[2019-11-18] MEDS: PANTOPRAZOLE 40 MG/10 ML VIAL INJ IV SCH (10:20)
[2019-11-18] MEDS: NITROGLYCERIN 0.2MG/HR TOPICAL PATCH TD SCH (10:21)
[2019-11-18] MEDS: SODIUM CHLOR 0.9% PF (SALINE LOCK) 10ML VIAL/SYR IV SCH ×2 (10:22→22:01)
[2019-11-18] MEDS: LISINOPRIL 20 MG TAB PO SCH (10:22)
[2019-11-18] MEDS: HCTZ 25 MG TAB PO SCH (10:22)
[2019-11-18] MEDS ORDERED: GOLYTELY 4L KIT PO ONE (10:45)
[2019-11-18 12:05] LABS: INR 1.22 (0.9-1.15); Partial Thromboplastin Time 31.3 sec (23.64-32.05)
[2019-11-18 12:07] LABS: Albumin 2.4 g/dL (3.4-5.0); Calcium 8.8 mg/dL (8.5-10.1); Potassium 3.5 mmol/L (3.5-5.1)
[2019-11-18 12:13] LABS: BUN/Creatinine Ratio 6.9; Bilirubin, Total 0.5 mg/dL (0.2-1.0); Phosphorus 3.5 mg/dL (2.5-4.90); Total Protein 7.4 g/dL (6.4-8.2)
[2019-11-18 13:00] VITALS: BP 146/90
[2019-11-18 16:45] VITALS: BP 154/98
[2019-11-18] MEDS: TPN PER PHARMACY IV NR ×7 (19:53)
[2019-11-18] MEDS ORDERED: TPN PER PHARMACY IV NR ×9 (20:00)
[2019-11-18 21:00] VITALS: BP 114/96
[2019-11-19] MEDS: ACCU-CHEK COMFORT CURVE STRIP VI SCH ×4 (00:20→18:03)
[2019-11-19] MEDS: SOD CHL 0.45% IV SCH ×3 (04:38→20:05)
[2019-11-19] MEDS: PIPERACILLIN-TAZOB 3.375GM 100 ML IV SCH ×4 (04:38→23:00)
[2019-11-19] MEDS: POTASSIUM CHLORIDE IV SCH ×3 (04:38→20:05)
[2019-11-19 05:00] VITALS: BP 152/114
[2019-11-19] MEDS: InsuLIN REG 1unit/0.01ml Soln (100units/ml) SC SCH ×4 (06:00→18:00)
[2019-11-19 06:03] LABS: Basophils # (auto) 0.1 10 ^3/uL (0-0.2); Basophils % (auto) 0.7 % (0.0-2.0); Eosinophils # (auto) 0.3 10 ^3/uL (0-0.8); Red Blood Cells 3.33 10^6/uL (4.5-5.90)
[2019-11-19 06:07] LABS: Eosinophils % (auto) 3.2 % (0.0-7.0); Lymphocytes % (auto) 11.4 % (10.0-50.0); Mean Corpuscular Hgb Conc. 33.3 g/dL (32.0-36.0); Mean Corpuscular Volume 81.2 fL (80.0-100.0); Monocytes # (auto) 1.1 10 ^3/uL (0-1.3); Monocytes % (auto) 12.3 % (0.0-12.0); Neutrophils # (auto) 6.6 10 ^3/uL (1.6-8.6); Neutrophils % (auto) 72.4 % (37.0-80.0); Platelet Count (auto) 279 10^3/uL (140-450); Red Cell Distribution Width 18.4 % (11.8-14.3); White Blood Cell 9.1 10^3/uL (4.4-10.8)
[2019-11-19 06:18] LABS: Calcium 8.7 mg/dL (8.5-10.1); Potassium 3.6 mmol/L (3.5-5.1)
[2019-11-19 06:26] LABS: Albumin 2.3 g/dL (3.4-5.0); BUN/Creatinine Ratio 7.4; Bilirubin, Total 0.4 mg/dL (0.2-1.0); Magnesium 2.1 mg/dL (1.6-2.6); Pre Albumin 22.1 mg/dL (20.0-40.0); Total Protein 6.8 g/dL (6.4-8.2)
[2019-11-19] MEDS: metroNIDAZOLE 500MG/100ML 100 ML IV SCH ×3 (07:22→22:43)
[2019-11-19 09:00] VITALS: BP 140/99
[2019-11-19] MEDS: SODIUM CHLOR 0.9% PF (SALINE LOCK) 10ML VIAL/SYR IV SCH ×2 (10:00→22:43)
[2019-11-19] MEDS: HCTZ 25 MG TAB PO SCH (10:00)
[2019-11-19] MEDS: LISINOPRIL 20 MG TAB PO SCH (10:00)
[2019-11-19] MEDS: PANTOPRAZOLE 40 MG/10 ML VIAL INJ IV SCH (10:25)
[2019-11-19] MEDS: NITROGLYCERIN 0.2MG/HR TOPICAL PATCH TD SCH (10:30)
[2019-11-19] MEDS ORDERED: LABETALOL HCL 5 MG/ML 4ML SYRINGE IV ONE ×2 (12:15→12:45)
[2019-11-19 13:00] VITALS: BP 137/100
[2019-11-19 17:00] VITALS: BP 151/95
[2019-11-19] MEDS ORDERED: TPN PER PHARMACY IV NR ×9 (20:00)
[2019-11-19 22:00] VITALS: BP 146/94
[2019-11-19] MEDS: LABETALOL HCL 5 MG/ML 4ML SYRINGE IV SCH (22:00)
[2019-11-20] MEDS: ACCU-CHEK COMFORT CURVE STRIP VI SCH ×5 (00:21→23:55)
[2019-11-20] MEDS: POTASSIUM CHLORIDE IV SCH ×3 (04:15→17:41)
[2019-11-20] MEDS: SOD CHL 0.45% IV SCH ×3 (04:15→17:41)
[2019-11-20 05:00] VITALS: BP 164/118
[2019-11-20] MEDS: PIPERACILLIN-TAZOB 3.375GM 100 ML IV SCH ×4 (05:05→23:29)
[2019-11-20] MEDS: hydrALAZINE HCL 20 MG/ML VL IV PRN (05:14)
[2019-11-20] MEDS: InsuLIN REG 1unit/0.01ml Soln (100units/ml) SC SCH ×5 (05:49→23:54)
[2019-11-20 06:19] LABS: Basophils # (auto) 0.1 10 ^3/uL (0-0.2); Basophils % (auto) 0.7 % (0.0-2.0); Eosinophils # (auto) 0.3 10 ^3/uL (0-0.8); Eosinophils % (auto) 3.8 % (0.0-7.0); Hematocrit 27.7 % (41.0-53.0); Hemoglobin 9.3 g/dL (13.5-17.5); Lymphocytes # (auto) 1.2 10 ^3/uL (0.4-5.4); Lymphocytes % (auto) 14.3 % (10.0-50.0); Mean Corpuscular Hemoglobin 27.1 pg (28.0-32.0); Mean Corpuscular Hgb Conc. 33.4 g/dL (32.0-36.0); Mean Corpuscular Volume 81.2 fL (80.0-100.0); Neutrophils # (auto) 5.5 10 ^3/uL (1.6-8.6); Neutrophils % (auto) 68.2 % (37.0-80.0); Platelet Count (auto) 275 10^3/uL (140-450); Red Blood Cells 3.42 10^6/uL (4.5-5.90); Red Cell Distribution Width 19.2 % (11.8-14.3); White Blood Cell 8.1 10^3/uL (4.4-10.8)
[2019-11-20] MEDS: metroNIDAZOLE 500MG/100ML 100 ML IV SCH ×3 (07:00→23:00)
[2019-11-20] MEDS ORDERED: LIDOCAINE 1% HCL (LOCAL ANESTH.) INJ 20ML MDV ONE (07:09)
[2019-11-20] MEDS ORDERED: ceFAZolin 1GM/50ML 50 ML IV ONE (07:18)
[2019-11-20] MEDS ORDERED: MIDAZOLAM HCL 1MG/1ML-2 ML VIAL ONE (07:21)
[2019-11-20] MEDS ORDERED: HYDROmorphone HCL 2 MG/ML VL ONE (07:21)
[2019-11-20] MEDS ORDERED: fentaNYL CITRATE 100 MCG/2 ML VL ONE (07:21)
[2019-11-20] MEDS ORDERED: ROCURONIUM 10MG/ML 10ML VIAL IV ONE (07:22)
[2019-11-20] MEDS ORDERED: PROPOFOL 10 MG/ML 20 ML IV ONE (07:22)
[2019-11-20] MEDS ORDERED: ONDANSETRON HCL 4 MG/2 ML VIAL ONE (07:22)
[2019-11-20] MEDS ORDERED: SODIUM CHLORIDE LOCK 20 ML ONE (07:22)
[2019-11-20] MEDS ORDERED: fentaNYL CITRATE 5 ML ONE (07:22)
[2019-11-20 07:45] LABS: Albumin 2.3 g/dL (3.4-5.0); Calcium 8.7 mg/dL (8.5-10.1); Magnesium 2.3 mg/dL (1.6-2.6); Potassium 3.8 mmol/L (3.5-5.1)
[2019-11-20 07:49] LABS: BUN/Creatinine Ratio 7.5; Bilirubin, Total 0.5 mg/dL (0.2-1.0); Phosphorus 3.2 mg/dL (2.5-4.90)
[2019-11-20] MEDS ORDERED: SUCCINYLCHOLINE CHLORIDE 20 MG/ML 10ML VIAL IV ONE (08:05)
[2019-11-20] MEDS ORDERED: POVIDONE IODINE 10 % TOPICAL OINT 30GM TOP ONE (09:03)
[2019-11-20] MEDS: SODIUM CHLOR 0.9% PF (SALINE LOCK) 10ML VIAL/SYR IV SCH ×3 (10:00→22:19)
[2019-11-20] MEDS: NITROGLYCERIN 0.2MG/HR TOPICAL PATCH TD SCH (10:00)
[2019-11-20] MEDS: LABETALOL HCL 5 MG/ML 4ML SYRINGE IV SCH ×3 (10:00→22:18)
[2019-11-20] MEDS: PANTOPRAZOLE 40 MG/10 ML VIAL INJ IV SCH ×2 (10:00→13:14)
[2019-11-20] MEDS ORDERED: ACCU-CHEK COMFORT CURVE STRIP VI ONE (10:30)
[2019-11-20] MEDS ORDERED: MORPHINE SULFATE 4 MG/ML SYR/VIAL IV PRN (10:30)
[2019-11-20] MEDS ORDERED: fentaNYL CITRATE 100 MCG/2 ML VL IV PRN (10:30)
[2019-11-20] MEDS ORDERED: ONDANSETRON HCL 4 MG/2 ML VIAL IV PRN (10:30)
[2019-11-20] MEDS ORDERED: NEOSTIGMINE 1 MG/ML INJ (10mg/10ML VIAL) ONE (10:34)
[2019-11-20] MEDS ORDERED: GLYCOPYRROLATE 0.2 MG/ML 1ML VIAL ONE (10:34)
[2019-11-20] MEDS ORDERED: ACETAMINOPHEN IV 100 ML IV ONE (11:21)
[2019-11-20] MEDS ORDERED: ACETAMINOPHEN IV 1000 MG/100ML (10MG/ML) IV ONE (11:30)
[2019-11-20] MEDS: HYDROmorphone HCL 2 MG/ML VL IV PRN ×6 (11:40→23:00)
[2019-11-20 12:55] VITALS: BP 157/113
[2019-11-20] MEDS: HYDROcodone-ACET 5/325MG TAB PO PRN (13:16)
[2019-11-20] MEDS ORDERED: HYDROmorphone HCL 2 MG/ML VL IV ONE ×2 (14:15)
[2019-11-20 16:57] VITALS: BP 133/93
[2019-11-20] MEDS ORDERED: TPN PER PHARMACY IV NR ×9 (20:00)
[2019-11-20 21:57] VITALS: BP 158/103
[2019-11-21] MEDS: HYDROmorphone HCL 2 MG/ML VL IV PRN ×6 (03:05→23:16)
[2019-11-21 05:00] VITALS: BP 156/103
[2019-11-21] MEDS: PIPERACILLIN-TAZOB 3.375GM 100 ML IV SCH ×4 (05:01→23:59)
[2019-11-21] MEDS: InsuLIN REG 1unit/0.01ml Soln (100units/ml) SC SCH ×4 (05:52→23:51)
[2019-11-21] MEDS: ACCU-CHEK COMFORT CURVE STRIP VI SCH ×3 (05:52→17:38)
[2019-11-21 05:59] LABS: Basophils # (auto) 0 10 ^3/uL (0-0.2); Basophils % (auto) 0.1 % (0.0-2.0); Eosinophils # (auto) 0 10 ^3/uL (0-0.8); Hematocrit 22.1 % (41.0-53.0); Hemoglobin 7.4 g/dL (13.5-17.5); Lymphocytes # (auto) 0.8 10 ^3/uL (0.4-5.4); Mean Corpuscular Hgb Conc. 33.4 g/dL (32.0-36.0); Monocytes # (auto) 1.1 10 ^3/uL (0-1.3); Neutrophils # (auto) 10.2 10 ^3/uL (1.6-8.6); Neutrophils % (auto) 84.3 % (37.0-80.0); White Blood Cell 12.1 10^3/uL (4.4-10.8)
[2019-11-21 06:01] LABS: Lymphocytes % (auto) 6.8 % (10.0-50.0); Monocytes % (auto) 8.8 % (0.0-12.0); Platelet Count (auto) 248 10^3/uL (140-450); Red Blood Cells 2.73 10^6/uL (4.5-5.90); Red Cell Distribution Width 19.4 % (11.8-14.3)
[2019-11-21 06:23] LABS: Albumin 1.9 g/dL (3.4-5.0); Calcium 8.1 mg/dL (8.5-10.1); Magnesium 1.9 mg/dL (1.6-2.6); Potassium 4.4 mmol/L (3.5-5.1)
[2019-11-21 06:29] LABS: BUN/Creatinine Ratio 12.3; Bilirubin, Total 0.4 mg/dL (0.2-1.0); Phosphorus 3.2 mg/dL (2.5-4.90); Total Protein 5.8 g/dL (6.4-8.2)
[2019-11-21] MEDS: metroNIDAZOLE 500MG/100ML 100 ML IV SCH ×3 (06:50→22:45)
[2019-11-21 09:00] VITALS: BP 160/98
[2019-11-21] MEDS: PANTOPRAZOLE 40 MG/10 ML VIAL INJ IV SCH (09:50)
[2019-11-21] MEDS: LABETALOL HCL 5 MG/ML 4ML SYRINGE IV SCH ×2 (09:51→22:18)
[2019-11-21] MEDS: SODIUM CHLOR 0.9% PF (SALINE LOCK) 10ML VIAL/SYR IV SCH ×2 (09:52→22:18)
[2019-11-21] MEDS: NITROGLYCERIN 0.2MG/HR TOPICAL PATCH TD SCH (09:52)
[2019-11-21] MEDS: SOD CHL 0.45% IV SCH ×2 (10:02→23:59)
[2019-11-21] MEDS: POTASSIUM CHLORIDE IV SCH ×2 (10:02→23:59)
[2019-11-21] MEDS: ONDANSETRON HCL 4 MG/2 ML VIAL IV PRN ×2 (11:04→17:34)
[2019-11-21 13:00] VITALS: BP 151/99
[2019-11-21 17:00] VITALS: BP 182/96
[2019-11-21] MEDS: hydrALAZINE HCL 20 MG/ML VL IV PRN (18:08)
[2019-11-21 18:34] LABS: Hemoglobin 7.5 g/dL (13.5-17.5)
[2019-11-21 18:36] LABS: Hematocrit 22.3 % (41.0-53.0)
[2019-11-21] MEDS ORDERED: TPN PER PHARMACY IV NR ×10 (20:00)
[2019-11-21 22:00] VITALS: BP 138/92
[2019-11-22] VITALS (10 sets, daily range): BP systolic 129–160; BP diastolic 72–97
[2019-11-22] MEDS: ACCU-CHEK COMFORT CURVE STRIP VI SCH ×4 (00:02→17:41)
[2019-11-22] MEDS: HYDROmorphone HCL 2 MG/ML VL IV PRN ×5 (03:37→20:41)
[2019-11-22] MEDS: PIPERACILLIN-TAZOB 3.375GM 100 ML IV SCH ×4 (05:00→23:00)
[2019-11-22 06:00] LABS: Basophils # (auto) 0 10 ^3/uL (0-0.2); Eosinophils # (auto) 0 10 ^3/uL (0-0.8); Eosinophils % (auto) 0.2 % (0.0-7.0); Neutrophils # (auto) 10.7 10 ^3/uL (1.6-8.6)
[2019-11-22 06:04] LABS: Basophils % (auto) 0.2 % (0.0-2.0); Lymphocytes % (auto) 7.9 % (10.0-50.0); Mean Corpuscular Hemoglobin 27.4 pg (28.0-32.0); Mean Corpuscular Hgb Conc. 33.8 g/dL (32.0-36.0); Mean Corpuscular Volume 81.1 fL (80.0-100.0); Monocytes # (auto) 1.2 10 ^3/uL (0-1.3); Monocytes % (auto) 9.2 % (0.0-12.0); Neutrophils % (auto) 82.5 % (37.0-80.0); Platelet Count (auto) 229 10^3/uL (140-450); Red Blood Cells 2.35 10^6/uL (4.5-5.90); Red Cell Distribution Width 19.1 % (11.8-14.3); White Blood Cell 12.9 10^3/uL (4.4-10.8)
[2019-11-22] MEDS: InsuLIN REG 1unit/0.01ml Soln (100units/ml) SC SCH ×3 (06:06→17:41)
[2019-11-22 06:11] LABS: Hemoglobin 6.4 g/dL (13.5-17.5)
[2019-11-22 06:23] LABS: Potassium 3.9 mmol/L (3.5-5.1)
[2019-11-22 06:32] LABS: Albumin 1.4 g/dL (3.4-5.0); BUN/Creatinine Ratio 11.9; Bilirubin, Total 0.4 mg/dL (0.2-1.0); Calcium 7.9 mg/dL (8.5-10.1); Magnesium 1.8 mg/dL (1.6-2.6); Phosphorus 3.1 mg/dL (2.5-4.90); Total Protein 5.7 g/dL (6.4-8.2)
[2019-11-22] MEDS: metroNIDAZOLE 500MG/100ML 100 ML IV SCH ×3 (07:31→22:53)
[2019-11-22] MEDS: PANTOPRAZOLE 40 MG/10 ML VIAL INJ IV SCH (09:40)
[2019-11-22] MEDS: NITROGLYCERIN 0.2MG/HR TOPICAL PATCH TD SCH (09:41)
[2019-11-22] MEDS: SODIUM CHLOR 0.9% PF (SALINE LOCK) 10ML VIAL/SYR IV SCH ×2 (09:41→22:53)
[2019-11-22] MEDS: LABETALOL HCL 5 MG/ML 4ML SYRINGE IV SCH ×2 (09:44→22:53)
[2019-11-22] MEDS ORDERED: ACETAMINOPHEN 650 MG RECT SUPP PR PRN (11:15)
[2019-11-22] MEDS: POTASSIUM CHLORIDE IV SCH (15:57)
[2019-11-22] MEDS: SOD CHL 0.45% IV SCH (15:57)
[2019-11-22 17:56] LABS: Hematocrit 22.6 % (41.0-53.0); Hemoglobin 7.5 g/dL (13.5-17.5)
[2019-11-22] MEDS: hydrALAZINE HCL 20 MG/ML VL IV PRN (18:25)
[2019-11-22] MEDS ORDERED: TPN PER PHARMACY IV NR ×10 (20:00)
[2019-11-23] MEDS: HYDROmorphone HCL 2 MG/ML VL IV PRN ×6 (00:40→22:00)
[2019-11-23] MEDS: SOD CHL 0.45% IV SCH ×3 (04:00→22:13)
[2019-11-23] MEDS: POTASSIUM CHLORIDE IV SCH ×3 (04:00→22:13)
[2019-11-23 05:00] VITALS: BP 133/101
[2019-11-23] MEDS: PIPERACILLIN-TAZOB 3.375GM 100 ML IV SCH ×3 (05:41→17:34)
[2019-11-23] MEDS: InsuLIN REG 1unit/0.01ml Soln (100units/ml) SC SCH ×4 (06:00→17:35)
[2019-11-23] MEDS: ACCU-CHEK COMFORT CURVE STRIP VI SCH ×4 (06:00→17:35)
[2019-11-23 06:09] LABS: Basophils # (auto) 0.1 10 ^3/uL (0-0.2); Hematocrit 20.8 % (41.0-53.0)
[2019-11-23 06:11] LABS: Basophils % (auto) 0.6 % (0.0-2.0); Eosinophils # (auto) 0.2 10 ^3/uL (0-0.8); Eosinophils % (auto) 1.9 % (0.0-7.0); Hemoglobin 7.2 g/dL (13.5-17.5); Lymphocytes # (auto) 0.9 10 ^3/uL (0.4-5.4); Lymphocytes % (auto) 8.4 % (10.0-50.0); Mean Corpuscular Hemoglobin 28.7 pg (28.0-32.0); Mean Corpuscular Hgb Conc. 34.7 g/dL (32.0-36.0); Mean Corpuscular Volume 82.7 fL (80.0-100.0); Monocytes # (auto) 1.1 10 ^3/uL (0-1.3); Monocytes % (auto) 10.1 % (0.0-12.0); Neutrophils # (auto) 8.8 10 ^3/uL (1.6-8.6); Platelet Count (auto) 228 10^3/uL (140-450); Red Blood Cells 2.52 10^6/uL (4.5-5.90); Red Cell Distribution Width 19.4 % (11.8-14.3); White Blood Cell 11.2 10^3/uL (4.4-10.8)
[2019-11-23 06:28] LABS: Albumin 1.7 g/dL (3.4-5.0); Magnesium 2.3 mg/dL (1.6-2.6)
[2019-11-23 06:31] LABS: BUN/Creatinine Ratio 13.2; Bilirubin, Total 0.5 mg/dL (0.2-1.0); Phosphorus 3.3 mg/dL (2.5-4.90); Total Protein 5.8 g/dL (6.4-8.2)
[2019-11-23] MEDS: metroNIDAZOLE 500MG/100ML 100 ML IV SCH ×3 (06:38→23:12)
[2019-11-23 09:00] VITALS: BP 151/103
[2019-11-23] MEDS: PANTOPRAZOLE 40 MG/10 ML VIAL INJ IV SCH (09:20)
[2019-11-23] MEDS: LABETALOL HCL 5 MG/ML 4ML SYRINGE IV SCH ×2 (09:23→22:17)
[2019-11-23] MEDS: NITROGLYCERIN 0.2MG/HR TOPICAL PATCH TD SCH (09:24)
[2019-11-23] MEDS: SODIUM CHLOR 0.9% PF (SALINE LOCK) 10ML VIAL/SYR IV SCH ×2 (09:35→22:17)
[2019-11-23 13:00] VITALS: BP 148/94
[2019-11-23 17:00] VITALS: BP 155/108
[2019-11-23 18:21] LABS: Hematocrit 22.6 % (41.0-53.0); Hemoglobin 7.6 g/dL (13.5-17.5)
[2019-11-23] MEDS ORDERED: TPN PER PHARMACY IV NR ×9 (20:00)
[2019-11-23 22:00] VITALS: BP 156/106
[2019-11-23 23:30] VITALS: BP 148/102
[2019-11-24] MEDS: PIPERACILLIN-TAZOB 3.375GM 100 ML IV SCH ×3 (00:01→11:25)
[2019-11-24] MEDS: HYDROmorphone HCL 2 MG/ML VL IV PRN ×7 (02:31→23:30)
[2019-11-24 05:45] VITALS: BP 152/98
[2019-11-24] MEDS: InsuLIN REG 1unit/0.01ml Soln (100units/ml) SC SCH ×4 (06:00→18:00)
[2019-11-24 06:22] LABS: Basophils # (auto) 0 10 ^3/uL (0-0.2); Basophils % (auto) 0.3 % (0.0-2.0); Eosinophils # (auto) 0.4 10 ^3/uL (0-0.8); Eosinophils % (auto) 4.6 % (0.0-7.0); Hematocrit 22.6 % (41.0-53.0); Hemoglobin 7.6 g/dL (13.5-17.5); Lymphocytes # (auto) 0.9 10 ^3/uL (0.4-5.4); Lymphocytes % (auto) 10.8 % (10.0-50.0); Mean Corpuscular Hemoglobin 27.9 pg (28.0-32.0); Mean Corpuscular Hgb Conc. 33.8 g/dL (32.0-36.0); Mean Corpuscular Volume 82.7 fL (80.0-100.0); Monocytes # (auto) 0.9 10 ^3/uL (0-1.3); Monocytes % (auto) 11.1 % (0.0-12.0); Neutrophils % (auto) 73.2 % (37.0-80.0); Nucleated Red Blood Cells % 0.1 %; Platelet Count (auto) 276 10^3/uL (140-450); Red Blood Cells 2.73 10^6/uL (4.5-5.90); Red Cell Distribution Width 19.3 % (11.8-14.3); White Blood Cell 8.2 10^3/uL (4.4-10.8)
[2019-11-24] MEDS: ACCU-CHEK COMFORT CURVE STRIP VI SCH ×4 (06:22→19:28)
[2019-11-24] MEDS: metroNIDAZOLE 500MG/100ML 100 ML IV SCH ×3 (06:32→23:29)
[2019-11-24 06:39] LABS: Albumin 1.9 g/dL (3.4-5.0); Calcium 7.9 mg/dL (8.5-10.1); Magnesium 2.2 mg/dL (1.6-2.6); Potassium 3.9 mmol/L (3.5-5.1)
[2019-11-24 06:44] LABS: BUN/Creatinine Ratio 14.9; Bilirubin, Total 0.3 mg/dL (0.2-1.0); Phosphorus 3.6 mg/dL (2.5-4.90); Total Protein 6.1 g/dL (6.4-8.2)
[2019-11-24 08:00] VITALS: BP 179/108
[2019-11-24] MEDS: PANTOPRAZOLE 40 MG/10 ML VIAL INJ IV SCH (09:15)
[2019-11-24] MEDS: SODIUM CHLOR 0.9% PF (SALINE LOCK) 10ML VIAL/SYR IV SCH ×2 (09:16→21:46)
[2019-11-24] MEDS: LABETALOL HCL 5 MG/ML 4ML SYRINGE IV SCH ×2 (09:16→21:46)
[2019-11-24] MEDS: NITROGLYCERIN 0.2MG/HR TOPICAL PATCH TD SCH (09:17)
[2019-11-24] MEDS: hydrALAZINE HCL 20 MG/ML VL IV PRN (11:25)
[2019-11-24] MEDS: POTASSIUM CHLORIDE IV SCH ×2 (11:34→23:31)
[2019-11-24] MEDS: SOD CHL 0.45% IV SCH ×2 (11:34→23:31)
[2019-11-24 12:00] VITALS: BP 158/99
[2019-11-24] MEDS ORDERED: cefTRIAXone 1GM/50ML D5W 50 ML IV ONE (16:00)
[2019-11-24] MEDS ORDERED: levoFLOXacin 750MG 150 ML IV ONE (16:00)
[2019-11-24 16:50] VITALS: BP 154/105
[2019-11-24] MEDS ORDERED: TPN PER PHARMACY IV NR ×9 (20:00)
[2019-11-24 21:42] VITALS: BP 175/115
[2019-11-25 05:00] VITALS: BP 162/114
[2019-11-25] MEDS: HYDROmorphone HCL 2 MG/ML VL IV PRN ×5 (05:28→20:21)
[2019-11-25 05:47] LABS: Basophils # (auto) 0 10 ^3/uL (0-0.2); Basophils % (auto) 0.3 % (0.0-2.0); Eosinophils # (auto) 0.5 10 ^3/uL (0-0.8); Eosinophils % (auto) 5.7 % (0.0-7.0); Hematocrit 23.7 % (41.0-53.0); Lymphocytes # (auto) 0.9 10 ^3/uL (0.4-5.4); Lymphocytes % (auto) 10.4 % (10.0-50.0); Mean Corpuscular Hemoglobin 28.1 pg (28.0-32.0); Mean Corpuscular Hgb Conc. 33.8 g/dL (32.0-36.0); Mean Corpuscular Volume 82.9 fL (80.0-100.0); Monocytes # (auto) 1.1 10 ^3/uL (0-1.3); Monocytes % (auto) 13.1 % (0.0-12.0); Neutrophils % (auto) 70.5 % (37.0-80.0); Platelet Count (auto) 298 10^3/uL (140-450); Red Blood Cells 2.85 10^6/uL (4.5-5.90); Red Cell Distribution Width 19.2 % (11.8-14.3); White Blood Cell 8.5 10^3/uL (4.4-10.8)
[2019-11-25] MEDS: ACCU-CHEK COMFORT CURVE STRIP VI SCH ×5 (06:00→23:48)
[2019-11-25] MEDS: InsuLIN REG 1unit/0.01ml Soln (100units/ml) SC SCH ×5 (06:00→23:49)
[2019-11-25 06:02] LABS: Potassium 3.8 mmol/L (3.5-5.1)
[2019-11-25 06:11] LABS: BUN/Creatinine Ratio 17.7; Bilirubin, Total 0.3 mg/dL (0.2-1.0); Magnesium 2.1 mg/dL (1.6-2.6); Phosphorus 3.5 mg/dL (2.5-4.90); Total Protein 6.4 g/dL (6.4-8.2)
[2019-11-25] MEDS: metroNIDAZOLE 500MG/100ML 100 ML IV SCH ×3 (06:33→23:04)
[2019-11-25 08:19] VITALS: BP 154/109
[2019-11-25] MEDS ORDERED: cefTRIAXone 1GM/50ML D5W 50 ML IV SCH (09:00)
[2019-11-25] MEDS: NITROGLYCERIN 0.2MG/HR TOPICAL PATCH TD SCH (09:46)
[2019-11-25] MEDS: SODIUM CHLOR 0.9% PF (SALINE LOCK) 10ML VIAL/SYR IV SCH ×2 (09:47→22:13)
[2019-11-25] MEDS: PANTOPRAZOLE 40 MG/10 ML VIAL INJ IV SCH (09:47)
[2019-11-25] MEDS: LABETALOL HCL 5 MG/ML 4ML SYRINGE IV SCH ×2 (09:48→22:12)
[2019-11-25] MEDS ORDERED: levoFLOXacin 750MG 150 ML IV SCH (10:00)
[2019-11-25] MEDS ORDERED: GASTROGRAFIN 120 ML SOL ONE (10:41)
[2019-11-25] MEDS ORDERED: VANCOMYCIN PER PHARMACY 0 MG IV SCH (15:15)
[2019-11-25] MEDS ORDERED: cloNIDine 0.2 mg/24hr 7DAY PATCH TD SCH (15:15)
[2019-11-25] MEDS ORDERED: cloNIDine 0.2 mg/24hr 7DAY PATCH TD ONE (15:15)
[2019-11-25] MEDS ORDERED: VANCOMYCIN 1GM/250ML 250 ML IV ONE (15:30)
[2019-11-25] MEDS: hydrALAZINE HCL 20 MG/ML VL IV PRN (15:39)
[2019-11-25] MEDS: KETOROLAC TROMETH 30 MG/ML 1ML VIAL IV PRN (17:07)
[2019-11-25] MEDS: ONDANSETRON HCL 4 MG/2 ML VIAL IV PRN (18:12)
[2019-11-25 18:50] VITALS: BP 139/95
[2019-11-25] MEDS ORDERED: ACETAMINOPHEN 650 MG RECT SUPP PR PRN (20:30)
[2019-11-25] MEDS: TPN PER PHARMACY IV NR ×9 (20:46)
[2019-11-25 21:24] VITALS: BP 153/102
[2019-11-25] MEDS: hydrALAZINE HCL 20 MG/ML VL IV SCH (22:12)
[2019-11-25] MEDS: VANCOMYCIN 1GM/250ML 250 ML IV SCH (23:33)
[2019-11-25] MEDS: ENALAPRILAT 1.25 MG/ML-1ML VIAL IV SCH (23:34)
[2019-11-26] MEDS: HYDROmorphone HCL 2 MG/ML VL IV PRN ×5 (00:48→22:05)
[2019-11-26] MEDS: hydrALAZINE HCL 20 MG/ML VL IV SCH ×6 (03:03→21:20)
[2019-11-26] MEDS: KETOROLAC TROMETH 30 MG/ML 1ML VIAL IV PRN ×2 (03:04→21:27)
[2019-11-26 05:00] VITALS: BP 141/89
[2019-11-26 05:52] LABS: Hematocrit 25.7 % (41.0-53.0); Hemoglobin 8.5 g/dL (13.5-17.5)
[2019-11-26] MEDS: InsuLIN REG 1unit/0.01ml Soln (100units/ml) SC SCH ×3 (06:00→17:56)
[2019-11-26] MEDS: ACCU-CHEK COMFORT CURVE STRIP VI SCH ×3 (06:07→17:55)
[2019-11-26] MEDS: ENALAPRILAT 1.25 MG/ML-1ML VIAL IV SCH ×3 (06:19→17:55)
[2019-11-26] MEDS: metroNIDAZOLE 500MG/100ML 100 ML IV SCH ×3 (06:46→21:26)
[2019-11-26 08:18] LABS: Alanine Aminotransferase 56 U/L (16-61); Alkaline Phosphatase 70 U/L (45-117); Anion Gap 7 (5-15); Aspartate Aminotransferase 30 U/L (15-37); Bilirubin, Total 0.3 mg/dL (0.2-1.0); Blood Urea Nitrogen 16 mg/dL (7-18); Calcium 7.8 mg/dL (8.5-10.1); Carbon Dioxide 25 mmol/L (21-32); Chloride 107 mmol/L (98-107); GFR African American 117 mL/min; GFR Non-African American 97 mL/min; Glucose 114 mg/dL (74-106); Phosphorus 3.5 mg/dL (2.5-4.90); Potassium 3.4 mmol/L (3.5-5.1); Sodium 139 mmol/L (136-145); Total Protein 6.2 g/dL (6.4-8.2)
[2019-11-26 08:19] LABS: Pre Albumin 18.7 mg/dL (20.0-40.0); Triglycerides 110 mg/dL (< 150)
[2019-11-26] MEDS: VANCOMYCIN 1GM/250ML 250 ML IV SCH ×2 (08:44→16:06)
[2019-11-26 09:00] VITALS: BP 151/96
[2019-11-26] MEDS: cefTRIAXone 1GM/50ML D5W 50 ML IV SCH (09:15)
[2019-11-26] MEDS: LABETALOL HCL 5 MG/ML 4ML SYRINGE IV SCH ×2 (10:15→21:25)
[2019-11-26] MEDS: PANTOPRAZOLE 40 MG/10 ML VIAL INJ IV SCH (10:15)
[2019-11-26] MEDS: SODIUM CHLOR 0.9% PF (SALINE LOCK) 10ML VIAL/SYR IV SCH ×2 (10:15→21:22)
[2019-11-26] MEDS ORDERED: POTASSIUM CHL 20MEQ/100ML 100 ML IV ONE (10:30)
[2019-11-26] MEDS: ACETAMINOPHEN 325 MG TAB PO PRN ×2 (12:44→21:16)
[2019-11-26 13:00] VITALS: BP 138/90
[2019-11-26 16:22] VITALS: BP 149/92
[2019-11-26] MEDS: TPN PER PHARMACY IV NR ×9 (19:53)
[2019-11-26] MEDS ORDERED: TPN PER PHARMACY IV NR ×11 (20:00)
[2019-11-26] MEDS: ONDANSETRON HCL 4 MG/2 ML VIAL IV PRN (21:17)
[2019-11-26 22:00] VITALS: BP 145/85
[2019-11-27] MEDS: VANCOMYCIN 1GM/250ML 250 ML IV SCH ×3 (00:36→17:15)
[2019-11-27] MEDS: ENALAPRILAT 1.25 MG/ML-1ML VIAL IV SCH ×4 (00:37→17:16)
[2019-11-27] MEDS: ACCU-CHEK COMFORT CURVE STRIP VI SCH ×3 (00:38→12:15)
[2019-11-27] MEDS: hydrALAZINE HCL 20 MG/ML VL IV SCH ×6 (02:00→21:28)
[2019-11-27] MEDS: HYDROmorphone HCL 2 MG/ML VL IV PRN ×4 (02:35→21:27)
[2019-11-27] MEDS: ACETAMINOPHEN 325 MG TAB PO PRN ×3 (03:42→21:27)
[2019-11-27] MEDS: KETOROLAC TROMETH 30 MG/ML 1ML VIAL IV PRN ×3 (03:43→18:28)
[2019-11-27 05:00] VITALS: BP 140/76
[2019-11-27 05:49] LABS: Basophils # (auto) 0 10 ^3/uL (0-0.2); Basophils % (auto) 0.4 % (0.0-2.0); Eosinophils # (auto) 0.1 10 ^3/uL (0-0.8); Eosinophils % (auto) 1.2 % (0.0-7.0); Lymphocytes # (auto) 0.4 10 ^3/uL (0.4-5.4); Monocytes # (auto) 0.4 10 ^3/uL (0-1.3); Neutrophils # (auto) 4.8 10 ^3/uL (1.6-8.6); Red Blood Cells 2.82 10^6/uL (4.5-5.90); White Blood Cell 5.7 10^3/uL (4.4-10.8)
[2019-11-27 05:52] LABS: Hematocrit 23.2 % (41.0-53.0); Hemoglobin 7.8 g/dL (13.5-17.5); Lymphocytes % (auto) 7.1 % (10.0-50.0); Mean Corpuscular Hemoglobin 27.7 pg (28.0-32.0); Mean Corpuscular Hgb Conc. 33.5 g/dL (32.0-36.0); Mean Corpuscular Volume 82.6 fL (80.0-100.0); Monocytes % (auto) 7.5 % (0.0-12.0); Neutrophils % (auto) 83.8 % (37.0-80.0); Nucleated Red Blood Cells % 0.1 %; Platelet Count (auto) 273 10^3/uL (140-450); Red Cell Distribution Width 19.8 % (11.8-14.3)
[2019-11-27] MEDS: InsuLIN REG 1unit/0.01ml Soln (100units/ml) SC SCH ×3 (06:00→12:00)
[2019-11-27 06:07] LABS: Albumin 1.9 g/dL (3.4-5.0); Calcium 7.5 mg/dL (8.5-10.1); Potassium 3.8 mmol/L (3.5-5.1)
[2019-11-27 06:11] LABS: BUN/Creatinine Ratio 17.2; Bilirubin, Total 0.3 mg/dL (0.2-1.0); Phosphorus 3.4 mg/dL (2.5-4.90); Total Protein 5.8 g/dL (6.4-8.2)
[2019-11-27] MEDS: metroNIDAZOLE 500MG/100ML 100 ML IV SCH ×3 (06:16→21:28)
[2019-11-27] MEDS: PANTOPRAZOLE 40 MG/10 ML VIAL INJ IV SCH (08:23)
[2019-11-27 09:00] VITALS: BP 183/107
[2019-11-27] MEDS: cefTRIAXone 1GM/50ML D5W 50 ML IV SCH (10:11)
[2019-11-27] MEDS: SODIUM CHLOR 0.9% PF (SALINE LOCK) 10ML VIAL/SYR IV SCH ×2 (10:12→21:28)
[2019-11-27] MEDS: LABETALOL HCL 5 MG/ML ML 20ML VIAL IV SCH ×2 (10:12→21:26)
[2019-11-27] MEDS: ONDANSETRON HCL 4 MG/2 ML VIAL IV PRN (12:17)
[2019-11-27 13:00] VITALS: BP 132/93
[2019-11-27 16:29] VITALS: BP 113/79
[2019-11-27 17:43] VITALS: BP 129/84
[2019-11-27 22:35] VITALS: BP 136/88
[2019-11-28] MEDS ORDERED: PIPERACILLIN-TAZOB 3.375GM 100 ML IV ONE (01:30)
[2019-11-28] MEDS ORDERED: SODIUM CHLORIDE 0.9% 1,000 ML IV SCH (01:30)
[2019-11-28] MEDS: HYDROmorphone HCL 2 MG/ML VL IV PRN ×4 (02:08→22:40)
[2019-11-28] MEDS: VANCOMYCIN 1GM/250ML 250 ML IV SCH ×3 (02:15→21:19)
[2019-11-28] MEDS: hydrALAZINE HCL 20 MG/ML VL IV SCH ×7 (02:16→21:16)
[2019-11-28] MEDS: SODIUM CHLOR 0.9% PF (SALINE LOCK) 10ML VIAL/SYR IV SCH ×2 (02:17→21:20)
[2019-11-28] MEDS: ENALAPRILAT 1.25 MG/ML-1ML VIAL IV SCH ×3 (02:17→12:00)
[2019-11-28 02:37] VITALS: BP 116/76
[2019-11-28] MEDS: KETOROLAC TROMETH 30 MG/ML 1ML VIAL IV PRN ×3 (03:12→21:18)
[2019-11-28] MEDS: metroNIDAZOLE 500MG/100ML 100 ML IV SCH ×3 (04:59→21:17)
[2019-11-28] MEDS: PIPERACILLIN-TAZOB 3.375GM 100 ML IV SCH ×4 (04:59→21:17)
[2019-11-28 05:21] VITALS: BP 131/81
[2019-11-28 06:55] LABS: Basophils # (auto) 0 10 ^3/uL (0-0.2); Basophils % (auto) 0.4 % (0.0-2.0); Eosinophils # (auto) 0 10 ^3/uL (0-0.8); Eosinophils % (auto) 0.7 % (0.0-7.0); Hematocrit 27.3 % (41.0-53.0); Lymphocytes # (auto) 0.5 10 ^3/uL (0.4-5.4); Lymphocytes % (auto) 9.1 % (10.0-50.0); Mean Corpuscular Hemoglobin 27.3 pg (28.0-32.0); Mean Corpuscular Volume 82.9 fL (80.0-100.0); Monocytes # (auto) 0.5 10 ^3/uL (0-1.3); Monocytes % (auto) 9.6 % (0.0-12.0); Neutrophils # (auto) 4.1 10 ^3/uL (1.6-8.6); Neutrophils % (auto) 80.2 % (37.0-80.0); Platelet Count (auto) 268 10^3/uL (140-450); Red Blood Cells 3.29 10^6/uL (4.5-5.90); Red Cell Distribution Width 19.1 % (11.8-14.3); White Blood Cell 5.1 10^3/uL (4.4-10.8)
[2019-11-28 09:01] VITALS: BP 133/80
[2019-11-28] MEDS: ACETAMINOPHEN 325 MG TAB PO PRN ×2 (09:01→21:19)
[2019-11-28] MEDS: LABETALOL HCL 5 MG/ML ML 20ML VIAL IV SCH (09:02)
[2019-11-28] MEDS: PANTOPRAZOLE 40 MG/10 ML VIAL INJ IV SCH (10:39)
[2019-11-28 12:30] VITALS: BP 94/55
[2019-11-28 17:03] VITALS: BP 148/82
[2019-11-28] MEDS: SODIUM CHLORIDE 0.9% 1,000 ML IV SCH ×2 (17:25→21:21)
[2019-11-28 22:49] VITALS: BP 122/88
[2019-11-29] MEDS: hydrALAZINE HCL 20 MG/ML VL IV SCH ×6 (02:46→21:35)
[2019-11-29] MEDS: HYDROmorphone HCL 2 MG/ML VL IV PRN ×5 (03:07→23:13)
[2019-11-29] MEDS: ACETAMINOPHEN 325 MG TAB PO PRN ×2 (05:00→17:48)
[2019-11-29 05:29] VITALS: BP 141/90
[2019-11-29 06:45] LABS: Hematocrit 24.4 % (41.0-53.0)
[2019-11-29 06:47] LABS: Hemoglobin 8.1 g/dL (13.5-17.5)
[2019-11-29 07:05] LABS: BUN/Creatinine Ratio 12.7; Calcium 7.9 mg/dL (8.5-10.1); Potassium 3.4 mmol/L (3.5-5.1)
[2019-11-29] MEDS: PIPERACILLIN-TAZOB 3.375GM 100 ML IV SCH ×3 (07:13→17:48)
[2019-11-29] MEDS: VANCOMYCIN 1GM/250ML 250 ML IV SCH ×3 (08:28→21:35)
[2019-11-29 08:41] VITALS: BP 141/95
[2019-11-29] MEDS: PANTOPRAZOLE 40 MG/10 ML VIAL INJ IV SCH (09:13)
[2019-11-29] MEDS: SODIUM CHLOR 0.9% PF (SALINE LOCK) 10ML VIAL/SYR IV SCH ×2 (09:14→22:37)
[2019-11-29] MEDS: LISINOPRIL 20 MG TAB PO SCH (09:14)
[2019-11-29] MEDS: SODIUM CHLORIDE 0.9% 1,000 ML IV SCH (09:14)
[2019-11-29] MEDS: metroNIDAZOLE 500MG/100ML 100 ML IV SCH ×3 (09:23→23:12)
[2019-11-29] MEDS ORDERED: FLUCONAZOLE 200MG/100ML 100 ML IV ONE (12:45)
[2019-11-29 12:50] VITALS: BP 121/66
[2019-11-29 17:00] VITALS: BP 147/81
[2019-11-29] MEDS ORDERED: ENOXAPARIN SOD 40 MG/0.4 ML SYRINGE SC ONE (18:30)
[2019-11-29] MEDS ORDERED: POTASSIUM EFFERVESENT TAB 25 MEQ PO ONE (18:30)
[2019-11-29 22:00] VITALS: BP 134/82
[2019-11-30] MEDS: PIPERACILLIN-TAZOB 3.375GM 100 ML IV SCH ×5 (00:10→23:35)
[2019-11-30] MEDS: HYDROmorphone HCL 2 MG/ML VL IV PRN ×4 (03:17→19:23)
[2019-11-30] MEDS: hydrALAZINE HCL 20 MG/ML VL IV SCH ×6 (03:17→21:17)
[2019-11-30 05:30] VITALS: BP 150/92
[2019-11-30] MEDS: metroNIDAZOLE 500MG/100ML 100 ML IV SCH ×3 (05:46→22:30)
[2019-11-30 06:04] LABS: Basophils # (auto) 0 10 ^3/uL (0-0.2); Basophils % (auto) 0.5 % (0.0-2.0); Eosinophils # (auto) 0.1 10 ^3/uL (0-0.8); Eosinophils % (auto) 2.1 % (0.0-7.0); Hematocrit 23.9 % (41.0-53.0); Lymphocytes % (auto) 16.1 % (10.0-50.0); Mean Corpuscular Hemoglobin 27.2 pg (28.0-32.0); Mean Corpuscular Hgb Conc. 33.4 g/dL (32.0-36.0); Mean Corpuscular Volume 81.6 fL (80.0-100.0); Monocytes # (auto) 0.8 10 ^3/uL (0-1.3); Monocytes % (auto) 13.6 % (0.0-12.0); Neutrophils # (auto) 4.1 10 ^3/uL (1.6-8.6); Neutrophils % (auto) 67.7 % (37.0-80.0); Platelet Count (auto) 283 10^3/uL (140-450); Red Blood Cells 2.93 10^6/uL (4.5-5.90); Red Cell Distribution Width 19.4 % (11.8-14.3); White Blood Cell 6.1 10^3/uL (4.4-10.8)
[2019-11-30 06:19] LABS: Calcium 7.8 mg/dL (8.5-10.1); Potassium 3.3 mmol/L (3.5-5.1)
[2019-11-30 09:00] VITALS: BP 125/75
[2019-11-30] MEDS: FLUCONAZOLE 200MG/100ML 100 ML IV SCH (09:04)
[2019-11-30] MEDS: LISINOPRIL 20 MG TAB PO SCH (09:06)
[2019-11-30] MEDS: SODIUM CHLOR 0.9% PF (SALINE LOCK) 10ML VIAL/SYR IV SCH ×2 (09:07→21:17)
[2019-11-30] MEDS: ENOXAPARIN SOD 40 MG/0.4 ML SYRINGE SC SCH (09:07)
[2019-11-30] MEDS: VANCOMYCIN 1GM/250ML 250 ML IV SCH ×2 (10:07→21:16)
[2019-11-30 12:36] VITALS: BP 128/77
[2019-11-30 17:00] VITALS: BP 133/80
[2019-11-30 21:32] VITALS: BP 135/82
[2019-12-01] MEDS: HYDROmorphone HCL 2 MG/ML VL IV PRN ×6 (00:12→22:11)
[2019-12-01] MEDS: hydrALAZINE HCL 20 MG/ML VL IV SCH ×6 (02:17→23:45)
[2019-12-01 05:00] VITALS: BP 146/94
[2019-12-01 05:17] LABS: Basophils # (auto) 0 10 ^3/uL (0-0.2); Basophils % (auto) 0.3 % (0.0-2.0); Eosinophils # (auto) 0.2 10 ^3/uL (0-0.8); Eosinophils % (auto) 2.3 % (0.0-7.0); Hematocrit 23.8 % (41.0-53.0); Hemoglobin 7.9 g/dL (13.5-17.5); Lymphocytes # (auto) 1.2 10 ^3/uL (0.4-5.4); Lymphocytes % (auto) 16.5 % (10.0-50.0); Mean Corpuscular Hemoglobin 26.9 pg (28.0-32.0); Mean Corpuscular Volume 81.3 fL (80.0-100.0); Monocytes # (auto) 0.8 10 ^3/uL (0-1.3); Monocytes % (auto) 11.2 % (0.0-12.0); Neutrophils # (auto) 5.2 10 ^3/uL (1.6-8.6); Neutrophils % (auto) 69.7 % (37.0-80.0); Platelet Count (auto) 296 10^3/uL (140-450); Red Blood Cells 2.93 10^6/uL (4.5-5.90); White Blood Cell 7.5 10^3/uL (4.4-10.8)
[2019-12-01] MEDS: metroNIDAZOLE 500MG/100ML 100 ML IV SCH (05:27)
[2019-12-01 05:41] LABS: BUN/Creatinine Ratio 10.1; Calcium 7.9 mg/dL (8.5-10.1); Potassium 3.3 mmol/L (3.5-5.1)
[2019-12-01] MEDS: PIPERACILLIN-TAZOB 3.375GM 100 ML IV SCH ×4 (06:25→23:45)
[2019-12-01 08:35] VITALS: BP 127/77
[2019-12-01] MEDS: ENOXAPARIN SOD 40 MG/0.4 ML SYRINGE SC SCH (09:22)
[2019-12-01] MEDS: LISINOPRIL 20 MG TAB PO SCH (09:22)
[2019-12-01] MEDS: FLUCONAZOLE 200MG/100ML 100 ML IV SCH (09:23)
[2019-12-01] MEDS: SODIUM CHLOR 0.9% PF (SALINE LOCK) 10ML VIAL/SYR IV SCH ×2 (10:00→21:53)
[2019-12-01] MEDS: VANCOMYCIN 1GM/250ML 250 ML IV SCH (10:45)
[2019-12-01 13:00] VITALS: BP 135/76
[2019-12-01] MEDS ORDERED: POTASSIUM CHL 20 Meq TABLET PO ONE (14:15)
[2019-12-01 16:32] VITALS: BP 138/92
[2019-12-01 22:37] VITALS: BP 145/86
[2019-12-02] MEDS: HYDROmorphone HCL 2 MG/ML VL IV PRN ×5 (02:00→21:51)
[2019-12-02 05:16] VITALS: BP 146/93
[2019-12-02] MEDS: PIPERACILLIN-TAZOB 3.375GM 100 ML IV SCH ×3 (05:46→18:21)
[2019-12-02] MEDS: hydrALAZINE HCL 20 MG/ML VL IV SCH ×3 (05:50→18:21)
[2019-12-02 06:51] LABS: Hematocrit 24.2 % (41.0-53.0); Hemoglobin 7.9 g/dL (13.5-17.5)
[2019-12-02 07:21] LABS: Magnesium 2.1 mg/dL (1.6-2.6); Potassium 3.4 mmol/L (3.5-5.1)
[2019-12-02 08:00] VITALS: BP 141/83
[2019-12-02] MEDS: ENOXAPARIN SOD 40 MG/0.4 ML SYRINGE SC SCH (09:46)
[2019-12-02] MEDS: SODIUM CHLOR 0.9% PF (SALINE LOCK) 10ML VIAL/SYR IV SCH ×2 (09:47→21:51)
[2019-12-02] MEDS: LISINOPRIL 20 MG TAB PO SCH (09:47)
[2019-12-02] MEDS: FLUCONAZOLE 200MG/100ML 100 ML IV SCH ×3 (09:47→15:59)
[2019-12-02] MEDS: PANTOPRAZOLE 40 MG TAB PO SCH (09:47)
[2019-12-02] MEDS ORDERED: cloNIDine 0.2 mg/24hr 7DAY PATCH TD SCH (10:00)
[2019-12-02] MEDS ORDERED: POTASSIUM CHL 20 Meq TABLET PO ONE (10:15)
[2019-12-02 12:00] VITALS: BP 140/89
[2019-12-02 16:34] VITALS: BP 139/96
[2019-12-02 22:07] VITALS: BP 138/95
[2019-12-03] MEDS: PIPERACILLIN-TAZOB 3.375GM 100 ML IV SCH ×2 (00:55→05:42)
[2019-12-03] MEDS: hydrALAZINE HCL 20 MG/ML VL IV SCH ×5 (01:18→18:23)
[2019-12-03] MEDS: HYDROmorphone HCL 2 MG/ML VL IV PRN ×5 (02:32→22:45)
[2019-12-03 05:33] VITALS: BP 133/92
[2019-12-03 08:00] VITALS: BP 139/79
[2019-12-03] MEDS: FLUCONAZOLE 200MG/100ML 100 ML IV SCH ×2 (10:38→11:37)
[2019-12-03] MEDS: SODIUM CHLOR 0.9% PF (SALINE LOCK) 10ML VIAL/SYR IV SCH ×2 (10:39→21:49)
[2019-12-03] MEDS: PANTOPRAZOLE 40 MG TAB PO SCH (10:39)
[2019-12-03] MEDS: ENOXAPARIN SOD 40 MG/0.4 ML SYRINGE SC SCH (10:40)
[2019-12-03] MEDS: LISINOPRIL 20 MG TAB PO SCH (10:40)
[2019-12-03] MEDS ORDERED: levoFLOXacin 500 MG TAB PO ONE (11:00)
[2019-12-03 12:00] VITALS: BP 147/97
[2019-12-03] MEDS: metroNIDAZOLE 500 MG TAB PO SCH ×2 (13:31→21:51)
[2019-12-03] MEDS ORDERED: APIXABAN 5 MG TAB PO ONE (14:58)
[2019-12-03] MEDS ORDERED: SODIUM FERR GLUC 62.5MG/5ML 125 MG in SODIUM CHL 0.9% 100 ML IV ONE (15:15)
[2019-12-03] MEDS ORDERED: POTASSIUM CHL 20 Meq TABLET PO ONE (15:15)
[2019-12-03] MEDS: IRON SUCROSE COMPLEX 200 MG in SODIUM CHL 0.9% 100 ML IV SCH (15:54)
[2019-12-03 16:48] VITALS: BP 137/92
[2019-12-03] MEDS: APIXABAN 5 MG TAB PO SCH (21:50)
[2019-12-03 22:00] VITALS: BP 136/90
[2019-12-04] MEDS: hydrALAZINE HCL 20 MG/ML VL IV SCH ×4 (00:40→17:40)
[2019-12-04] MEDS: HYDROmorphone HCL 2 MG/ML VL IV PRN ×2 (02:57→10:15)
[2019-12-04 05:30] VITALS: BP 143/90
[2019-12-04] MEDS: metroNIDAZOLE 500 MG TAB PO SCH ×2 (05:58→12:59)
[2019-12-04 06:25] LABS: Hematocrit 25.1 % (41.0-53.0); Hemoglobin 8.4 g/dL (13.5-17.5)
[2019-12-04 06:34] LABS: Magnesium 1.9 mg/dL (1.6-2.6); Potassium 3.8 mmol/L (3.5-5.1)
[2019-12-04 08:00] VITALS: BP 140/92
[2019-12-04] MEDS ORDERED: levoFLOXacin 500 MG TAB PO SCH (10:00)
[2019-12-04] MEDS: FLUCONAZOLE 200MG/100ML 100 ML IV SCH ×2 (10:15→11:48)
[2019-12-04] MEDS: PANTOPRAZOLE 40 MG TAB PO SCH (10:18)
[2019-12-04] MEDS: APIXABAN 5 MG TAB PO SCH (10:18)
[2019-12-04] MEDS: LISINOPRIL 20 MG TAB PO SCH (10:18)
[2019-12-04] MEDS: SODIUM CHLOR 0.9% PF (SALINE LOCK) 10ML VIAL/SYR IV SCH (10:18)
[2019-12-04 12:00] VITALS: BP 154/93
[2019-12-04] MEDS ORDERED: SODIUM FERR GLUC 62.5MG/5ML 125 MG in SODIUM CHL 0.9% 100 ML IV SCH (12:00)
[2019-12-04] MEDS ORDERED: HCTZ 25 MG TAB PO ONE (12:30)
[2019-12-04] MEDS: IRON SUCROSE COMPLEX 200 MG in SODIUM CHL 0.9% 100 ML IV SCH (12:57)
[2019-12-04] MEDS ORDERED: MAGNESIUM OXIDE 400 MG TAB PO ONE (15:00)
[2019-12-04] MEDS ORDERED: POTASSIUM CHL 20 Meq TABLET PO ONE (15:00)
[2019-12-04] MEDS ORDERED: SACC250C PO (15:02)
[2019-12-04] MEDS ORDERED: METR500T PO (15:02)
[2019-12-04] MEDS ORDERED: POTA1TAB61 PO (15:02)
[2019-12-04] MEDS ORDERED: HCTZ25T PO (15:02)
[2019-12-04] MEDS ORDERED: PANT40TA2 PO (15:02)
[2019-12-04] MEDS ORDERED: LEVO500T21 PO (15:02)
[2019-12-04] MEDS ORDERED: FER325T PO (15:02)
[2019-12-04] MEDS ORDERED: LISI-646 PO (15:02)
[2019-12-04] MEDS ORDERED: FLUC200T35 PO (15:02)
[2019-12-04 16:56] VITALS: BP 136/100
[2019-12-04 17:04] VITALS: BP 136/100
[2019-12-10] MEDS ORDERED: APIXABAN 5 MG TAB PO SCH (10:00)
== END 2019-12-04 19:00 | disposition home health service (06) | DRG 710 ==
LOC: EDSEX 13:23 → ER 13:23 → TELE 13:24 → TELE-WESTW 22:07 → DOU IN ICU 11-02 17:05 → ICU WEST 11-02 23:32 → DOU IN ICU 11-06 14:10 → TELE-WESTW 11-12 05:30
PROVIDERS: ADMIT Nurse Practitioner Acute Care; ATTEND Internal Medicine
PROC: 0DB Gastrointestinal System, Excision (ICD-10-PCS; 2019-10-31)
PROC: 02HV33Z Insertion of Infusion Device into Superior Vena Cava, Percutaneous Approach (ICD-10-PCS; 2019-11-13)
PROC: 0D1L0Z4 Bypass Transverse Colon to Cutaneous, Open Approach (ICD-10-PCS; 2019-11-20)
PROC: 0DBM0ZX Excision of Descending Colon, Open Approach, Diagnostic (ICD-10-PCS; 2019-11-20)
PROC: 0DBL0ZX Excision of Transverse Colon, Open Approach, Diagnostic (ICD-10-PCS; 2019-11-20)
PROC: 0WBF0ZZ Excision of Abdominal Wall, Open Approach (ICD-10-PCS; principal; 2019-11-20 08:15)
PROC: 30233N1 Transfusion of Nonautologous Red Blood Cells into Peripheral Vein, Percutaneous Approach (ICD-10-PCS; 2019-11-22)
PROC: 02H633Z Insertion of Infusion Device into Right Atrium, Percutaneous Approach (ICD-10-PCS; 2019-12-04)
DX: B37.7 Candidal sepsis (principal); N17.0 Acute kidney failure with tubular necrosis; I47.2 Ventricular tachycardia; D68.9 Coagulation defect, unspecified; E11.22 Type 2 diabetes mellitus with diabetic chronic kidney disease; E44.0 Moderate protein-calorie malnutrition; C18.9 Malignant neoplasm of colon, unspecified; E11.65 Type 2 diabetes mellitus with hyperglycemia; N18.3 Chronic kidney disease, stage 3 (moderate); E87.1 Hypo-osmolality and hyponatremia; K57.80 Diverticulitis of intestine, part unspecified, with perforation and abscess without bleeding; E86.0 Dehydration; I16.0 Hypertensive urgency; E87.6 Hypokalemia; D63.8 Anemia in other chronic diseases classified elsewhere; I82.611 Acute embolism and thrombosis of superficial veins of right upper extremity; Z79.899 Other long term (current) drug therapy; Z68.33 Body mass index [BMI] 33.0-33.9, adult; I12.9 Hypertensive chronic kidney disease with stage 1 through stage 4 chronic kidney disease, or unspecified chronic kidney disease
CPT/HCPCS: 10022; 36415; 36569; 71045; 74176; 74177; 74250; 75989; 80048; 80053; 80202; 81001; 82040; 82378; 82533; 82570; 82962; 83036; 83605; 83690; 83735; 84100; 84132; 84156; 84300; 84443; 84478; 85014; 85018; 85025; 85610; 85730; 86850; 86900; 86901; 86920; 87040; 87077; 87081; 87186; 87205; 87493; 93005; 93306; 93971; 93975; 96361; 96365; 96375; 97116; 97163; 97530; C1729; C9113; G0378; J0131; J0330; J0690; J0696; J1450; J1756; J1815; J1885; J1956; J2001; J2250; J2405; J2543; J2704; J3430; J3480; J3490; J7131

== ENCOUNTER 2019-12-25 14:32 | Inpatient (IN) | payer MEDICAID ==
[~2019-12-25] VITALS: Ht 170.2 cm; Wt 75.4 kg
[~2019-12-25 14:32] MED LIST: FER325T PO; FLUC200T35 PO; HCTZ25T PO; LEVO500T21 PO; LISI-646 PO; METR500T PO; PANT40TA2 PO; POTA1TAB61 PO; SACC250C PO
[2019-12-25] MEDS ORDERED: SODIUM CHLORIDE 0.9% 500 ML IVB ONE (14:41)
[2019-12-25] MEDS ORDERED: PANTOPRAZOLE 40 MG/10 ML VIAL INJ IV STA (14:41)
[2019-12-25] MEDS ORDERED: ONDANSETRON HCL 4 MG/2 ML VIAL IV ONE (14:45)
[2019-12-25] MEDS ORDERED: MORPHINE SULFATE 4 MG/ML SYR/VIAL IV ONE (14:45)
[2019-12-25 15:33] LABS: Basophils # (auto) 0 10 ^3/uL (0-0.2); Eosinophils # (auto) 0 10 ^3/uL (0-0.8); Red Cell Distribution Width 18.3 % (11.8-14.3)
[2019-12-25 15:37] LABS: Basophils % (auto) 0.4 % (0.0-2.0); Eosinophils % (auto) 0.2 % (0.0-7.0); Hematocrit 34.4 % (41.0-53.0); Hemoglobin 11.2 g/dL (13.5-17.5); Lymphocytes # (auto) 0.7 10 ^3/uL (0.4-5.4); Lymphocytes % (auto) 10.7 % (10.0-50.0); Mean Corpuscular Hemoglobin 25.5 pg (28.0-32.0); Mean Corpuscular Hgb Conc. 32.6 g/dL (32.0-36.0); Mean Corpuscular Volume 78.3 fL (80.0-100.0); Monocytes % (auto) 14.6 % (0.0-12.0); Neutrophils % (auto) 74.1 % (37.0-80.0); Nucleated Red Blood Cells % 0.1 %; Platelet Count (auto) 350 10^3/uL (140-450); White Blood Cell 6.8 10^3/uL (4.4-10.8)
[2019-12-25 15:59] LABS: Albumin 3.2 g/dL (3.4-5.0); BUN/Creatinine Ratio 10.1; Calcium 9.1 mg/dL (8.5-10.1); Total Protein 7.7 g/dL (6.4-8.2)
[2019-12-25 16:17] LABS: Potassium 2.5 mmol/L (3.5-5.1)
[2019-12-25] MEDS ORDERED: DOCUSATE SOD 100 MG CAP PO PRN (16:30)
[2019-12-25] MEDS ORDERED: POTASSIUM CHL 20MEQ/100ML 100 ML IV ONE ×2 (16:30)
[2019-12-25] MEDS ORDERED: cefTRIAXone 1GM/50ML D5W 50 ML IV ONE (16:30)
[2019-12-25] MEDS ORDERED: MAGNESIUM SULFATE 1GM/100ML 100 ML IV ONE (16:30)
[2019-12-25] MEDS ORDERED: LACTATED RINGER'S 1,000 ML IV ONE (16:30)
[2019-12-25] MEDS ORDERED: POTASSIUM CHL 20 Meq TABLET PO ONE (16:30)
[2019-12-25] MEDS ORDERED: metroNIDAZOLE 500MG/100ML 100 ML IV ONE (16:30)
[2019-12-25] MEDS ORDERED: LORazepam 0.5 MG TAB PO PRN (16:30)
[2019-12-25] MEDS ORDERED: MORPHINE SULF INJ 2 MG/ML SYRINGE 1ML IV PRN ×2 (16:30)
[2019-12-25] MEDS ORDERED: NITROGLYCERIN 0.4 MG SL TAB SL PRN (16:30)
[2019-12-25] MEDS ORDERED: FUROSEMIDE 20 MG/2 ML VIAL IV ONE (16:30)
[2019-12-25] MEDS ORDERED: CALCIUM CHL 100MG/ML 500 MG in D5W 5% 100 ML IV ONE (16:30)
[2019-12-25] MEDS ORDERED: ALUM & MAG HYDROX-SIMETH LIQ(MAALOX) 30 ML PO PRN (16:30)
[2019-12-25 19:25] LABS: Urine Bacteria FEW /hpf (None Seen); Urine Blood Negative /uL (Negative); Urine Hyaline Cast FEW /lpf (0 - 2); Urine Mucus FEW (None Seen); Urine WBC 1 /hpf (0 - 3)
[2019-12-25] MEDS: HYDROmorphone HCL 2 MG/ML VL IV PRN (19:59)
[2019-12-25] MEDS: METOCLOPRAMIDE HCL 5MG/ml INJ 2ml VIAL IV PRN (19:59)
[2019-12-25] MEDS: SOD CHL 0.9%/ KCL 40MEQ 1,000 ML IV SCH (20:00)
--- NOTE | 2019-12-25 20:20 | NUR ---
Telemetry admit from ER CHAVOLORENA admitted to Left lower quadrant heterogenous mass to Telemetry unit after SBAR received. Patient oriented to LAQUITA COWAN RN primary RN, unit, room, bed, and unit policies regarding patient care and visiting hours. Patient now on continuous telemetry monitoring, tele box # 3 and telemetry reading on arrival to unit is ST 128. Patient placed on bedside oxygen, weighed by bedscale and encouraged to call if they need something. All questions and concerns addressed, patient verbalized understanding. Note:
[2019-12-25 21:46] VITALS: BP 165/111
[2019-12-25] MEDS: metroNIDAZOLE 500MG/100ML 100 ML IV SCH (21:53)
[2019-12-25] MEDS: FERROUS SULFATE 325 MG TAB PO SCH (21:53)
[2019-12-25] MEDS: LISINOPRIL 20 MG TAB PO SCH (22:32)
[2019-12-25 23:11] VITALS: BP 140/115
[2019-12-25] MEDS: HYDROcodone-ACET 5/325MG TAB PO PRN (23:28)
--- NOTE | 2019-12-25 23:51 | NUR ---
SINUS TACHYCARDIA PATIENT IS ST 125-130S ON MONITOR. PATIENT CURRENT BP 140/115 HR 127. OBTAINED EKG SINUS TACHYCARDIA @ 126. PATIENT ONLY TAKES HCTZ DAILY AND LISINOPRIL 20MG DAILY AND HAS HISTORY HTN. [facility]ARA HOSPITALIST FOR ORDERS. Addendum: 12/26/19 at 0038 by LAQUITA COWAN RN RN RECEIVED ORDER FOR HYDRALAZINE 10MG IV FOR SBP ABOVE 150 PRN. PATIENT CURRENT BP 151/110 HR 135. ADMINISTERED HYDRALAZINE PRESCRIBED. PLACED PATIENT ON O2 2LNC. PATIENT C/O 05/22 ABDOMINAL PAIN ADMINISTERED DILAUDID 0.5MG IV PRESCRIBED PATIENT TOLERATED WELL. WILL CONTINUE TO MONITOR PATIENT.
[2019-12-26] MEDS: hydrALAZINE HCL 20 MG/ML VL IV PRN (00:15)
[2019-12-26] MEDS: HYDROmorphone HCL 2 MG/ML VL IV PRN ×5 (00:15→19:34)
[2019-12-26 01:36] VITALS: BP 118/80
[2019-12-26] MEDS: SOD CHL 0.9%/ KCL 40MEQ 1,000 ML IV SCH ×3 (04:19→12:11)
[2019-12-26 04:50] VITALS: BP 118/78
[2019-12-26] MEDS: metroNIDAZOLE 500MG/100ML 100 ML IV SCH ×2 (05:09→14:17)
[2019-12-26] MEDS ORDERED: FUROSEMIDE 20 MG/2 ML VIAL IV SCH (06:00)
[2019-12-26 06:58] LABS: Basophils # (auto) 0 10 ^3/uL (0-0.2); Eosinophils # (auto) 0 10 ^3/uL (0-0.8); Eosinophils % (auto) 0.1 % (0.0-7.0); Hemoglobin 11.2 g/dL (13.5-17.5)
[2019-12-26 07:01] LABS: Basophils % (auto) 0.1 % (0.0-2.0); Hematocrit 34.5 % (41.0-53.0); Lymphocytes % (auto) 5.5 % (10.0-50.0); Mean Corpuscular Hemoglobin 25.6 pg (28.0-32.0); Mean Corpuscular Hgb Conc. 32.5 g/dL (32.0-36.0); Mean Corpuscular Volume 78.7 fL (80.0-100.0); Monocytes # (auto) 1.3 10 ^3/uL (0-1.3); Monocytes % (auto) 7.3 % (0.0-12.0); Neutrophils # (auto) 15.1 10 ^3/uL (1.6-8.6); Platelet Count (auto) 395 10^3/uL (140-450); Red Blood Cells 4.39 10^6/uL (4.5-5.90); Red Cell Distribution Width 18.3 % (11.8-14.3); White Blood Cell 17.4 10^3/uL (4.4-10.8)
[2019-12-26 07:12] LABS: INR 1.29 (0.9-1.15); Partial Thromboplastin Time 38.3 sec (23.64-32.05)
[2019-12-26 07:17] LABS: Potassium 3.4 mmol/L (3.5-5.1)
[2019-12-26 07:28] LABS: Albumin 2.8 g/dL (3.4-5.0); BUN/Creatinine Ratio 9.4; Bilirubin, Total 1.2 mg/dL (0.2-1.0); Calcium 8.4 mg/dL (8.5-10.1); Magnesium 1.8 mg/dL (1.6-2.6); Phosphorus 5.2 mg/dL (2.5-4.90); Total Protein 6.8 g/dL (6.4-8.2)
[2019-12-26] MEDS: METOCLOPRAMIDE HCL 5MG/ml INJ 2ml VIAL IV PRN ×2 (08:35→21:16)
[2019-12-26 08:45] VITALS: BP 124/84
[2019-12-26] MEDS: FERROUS SULFATE 325 MG TAB PO SCH ×2 (08:55→22:07)
[2019-12-26] MEDS: FLORASTOR (S. BOULARDII) 250 MG CAP PO SCH (08:56)
[2019-12-26] MEDS: FLUCONAZOLE 100 MG TAB PO SCH (08:56)
[2019-12-26] MEDS: PANTOPRAZOLE 40 MG TAB PO SCH (08:56)
[2019-12-26] MEDS: METOPROLOL TARTRATE 25 MG TAB PO SCH ×2 (08:57→22:07)
[2019-12-26] MEDS: LISINOPRIL 20 MG TAB PO SCH (08:57)
[2019-12-26] MEDS ORDERED: cefTRIAXone 1GM/50ML D5W 50 ML IV SCH (09:00)
[2019-12-26] MEDS ORDERED: LISINOPRIL 20 MG TAB PO SCH (10:00)
[2019-12-26] MEDS ORDERED: ENOXAPARIN SOD 40 MG/0.4 ML SYRINGE SC SCH (10:00)
[2019-12-26] MEDS ORDERED: POTASSIUM CHL 20 Meq TABLET PO SCH (10:00)
--- NOTE | 2019-12-26 11:50 | NUR ---
DR. JOHNSON AT BEDSIDE TO ASSESS PATIENT AND DISCUSS PLAN OF CARE, ORDERS RECEIVED, WILL DOCUMENT AND CARRY OUT
[2019-12-26] MEDS ORDERED: HYDROmorphone HCL 2 MG/ML VL IV PRN (12:00)
[2019-12-26 12:49] VITALS: BP 124/90
[2019-12-26] MEDS ORDERED: D5W/SOD CHLO 0.9% 1,000 ML IV ONE (15:30)
[2019-12-26 16:47] VITALS: BP 126/89
[2019-12-26] MEDS: HYDROcodone-ACET 5/325MG TAB PO PRN (17:54)
[2019-12-26] MEDS: PIPERACILLIN-TAZOB 3.375GM 100 ML IV SCH (19:33)
[2019-12-26 21:46] VITALS: BP_SYST 11; BP_SYST 111; BP_DIAS 72
--- NOTE | 2019-12-26 22:05 | NUR ---
pain pt complaining of pain in the left lower abdominal quadrant. Oramorph given.
[2019-12-26] MEDS: APIXABAN 5 MG TAB PO SCH (22:07)
[2019-12-26] MEDS: MORPHINE SULF 30 mg ER tab PO SCH (22:08)
[2019-12-27] MEDS: PIPERACILLIN-TAZOB 3.375GM 100 ML IV SCH ×5 (00:21→23:25)
[2019-12-27] MEDS: HYDROmorphone HCL 2 MG/ML VL IV PRN ×6 (00:21→21:17)
--- NOTE | 2019-12-27 00:21 | NUR ---
pain pt complaining of pain in the left lower abdominal quadrant. 04/22. Dilaudid given.
--- NOTE | 2019-12-27 03:30 | NUR ---
gave report to SHAILESH Sterling.
--- NOTE | 2019-12-27 03:30 | NUR ---
Received report from Rhonda Duff RN and assumed care of pt at this time.
[2019-12-27] MEDS: METOCLOPRAMIDE HCL 5MG/ml INJ 2ml VIAL IV PRN ×3 (04:18→21:17)
[2019-12-27 05:00] VITALS: BP 118/83
[2019-12-27 05:54] LABS: Basophils # (auto) 0 10 ^3/uL (0-0.2); Basophils % (auto) 0.1 % (0.0-2.0); Eosinophils # (auto) 0 10 ^3/uL (0-0.8); Eosinophils % (auto) 0.1 % (0.0-7.0); Mean Corpuscular Volume 79.3 fL (80.0-100.0); Neutrophils # (auto) 14.4 10 ^3/uL (1.6-8.6); Red Cell Distribution Width 18.7 % (11.8-14.3)
[2019-12-27 05:56] LABS: Hematocrit 32.4 % (41.0-53.0); Hemoglobin 10.3 g/dL (13.5-17.5); Lymphocytes # (auto) 0.6 10 ^3/uL (0.4-5.4); Lymphocytes % (auto) 3.9 % (10.0-50.0); Mean Corpuscular Hemoglobin 25.2 pg (28.0-32.0); Mean Corpuscular Hgb Conc. 31.7 g/dL (32.0-36.0); Monocytes # (auto) 1.5 10 ^3/uL (0-1.3); Monocytes % (auto) 8.9 % (0.0-12.0); Platelet Count (auto) 326 10^3/uL (140-450); Red Blood Cells 4.08 10^6/uL (4.5-5.90); White Blood Cell 16.6 10^3/uL (4.4-10.8)
[2019-12-27 06:19] LABS: Albumin 2.5 g/dL (3.4-5.0); Calcium 8.3 mg/dL (8.5-10.1); Potassium 3.5 mmol/L (3.5-5.1)
[2019-12-27 06:22] LABS: BUN/Creatinine Ratio 13.1; Bilirubin, Total 1.2 mg/dL (0.2-1.0); Total Protein 7.3 g/dL (6.4-8.2)
[2019-12-27 09:00] VITALS: BP 124/86
--- NOTE | 2019-12-27 10:00 | NUR ---
MEDICATION NOTES PT WAS VERY NAUSEATED AND HAD VOMITED. 1000 PO MEDS WILL NOT BE GIVEN ALL AT ONE TIME BUT WILL BE DISTRIBUTED THROUGHOUT THE DAY TO MAKE SURE THAT PT WILL NOT END UP VOMITING THE MEDICATIONS. PATIENT AGREED WITH THE PLAN.
[2019-12-27] MEDS: MORPHINE SULF 30 mg ER tab PO SCH ×2 (10:26→23:24)
--- NOTE | 2019-12-27 10:43 | NUR ---
MESSAGE LEFT WITH PATHOLOGY DEPARTMENT RE: PATHOLOGY REPORT FROM PREVIOUS ADMISSION.
[2019-12-27 13:00] VITALS: BP 122/86
--- NOTE | 2019-12-27 13:00 | NUR ---
INFORMED PT THAT THE WIRE BRUSH OPERATOR ORDERED A THORNTON CATHETER INSERTION. PT STATED THAT HE WOULD LIKE TO WAIT UNTIL LATER.
[2019-12-27] MEDS: FLORASTOR (S. BOULARDII) 250 MG CAP PO SCH (13:25)
[2019-12-27] MEDS: APIXABAN 5 MG TAB PO SCH ×2 (13:25→23:23)
[2019-12-27] MEDS: METOPROLOL TARTRATE 25 MG TAB PO SCH ×2 (13:27→23:23)
[2019-12-27] MEDS: FERROUS SULFATE 325 MG TAB PO SCH ×2 (15:05→22:00)
[2019-12-27] MEDS: FLUCONAZOLE 100 MG TAB PO SCH (15:05)
[2019-12-27] MEDS: PANTOPRAZOLE 40 MG TAB PO SCH (15:05)
[2019-12-27] MEDS: SODIUM CHLORIDE 0.9% 1,000 ML IV SCH (15:06)
[2019-12-27] MEDS: ALBUMIN 25% 100 ML IV SCH ×2 (16:36→23:25)
[2019-12-27 17:00] VITALS: BP 117/80
--- NOTE | 2019-12-27 17:16 | NUR ---
Rivas catheter insertion Patient assessed and determined to be in need of rivas catheter. Order obtained from MD. Patient educated on catheter and reason for insertion. All questions answered. Rivas catheter 16 guage Malay inserted with clean sterile technique. Patient tolerated well. UNABLE TO COLLECT A URINE SAMPLE BECAUSE THE PT HAD JUST URINATED PRIOR TO RIVAS INSERTION.
[2019-12-27] MEDS ORDERED: levoFLOXacin 500MG 100 ML IV ONE (18:00)
--- NOTE | 2019-12-27 18:43 | NUR ---
CLOSING NOTES Patient awake and alert. DENIES SOB. VERBALIZED TOLERABLE PAIN AT THIS TIME. THORNTON CATHETER PATENT. SEDIMENTS NOTED ON THE DRAINAGE.
[2019-12-27 20:16] LABS: Protein, Urine 162.5 mg/dL (0.0-11.9)
--- NOTE | 2019-12-27 21:05 | NUR ---
Notified Dr Cortez that pt still w/ n/v after Reglan was given and new orders received at this time for Phenergan 12.5mg IV q 6hrs prn for nausea and vomiting. ORBAV
[2019-12-27 22:07] VITALS: BP 130/92
[2019-12-27] MEDS: PROMETHAZINE HCL 25 MG/ML 1ML IV PRN (23:26)
[2019-12-28] MEDS: HYDROmorphone HCL 2 MG/ML VL IV PRN ×5 (03:05→20:36)
[2019-12-28] MEDS: SODIUM CHLORIDE 0.9% 1,000 ML IV SCH ×3 (04:56→18:40)
[2019-12-28 05:20] VITALS: BP 149/99
[2019-12-28] MEDS: PIPERACILLIN-TAZOB 3.375GM 100 ML IV SCH ×2 (06:30→14:39)
--- NOTE | 2019-12-28 07:30 | NUR ---
Opening Shift Note Assumed care of patient, awake and alert. No S/S of distress/SOB or pain. Instructed on POC and to call for assist PRN, will continue to monitor for changes Q1hr and PRN. Bed in low and locked position, rails up x2, no-slip socks on.
[2019-12-28] MEDS: PROMETHAZINE HCL 25 MG/ML 1ML IV PRN ×2 (08:27→15:24)
[2019-12-28 09:00] VITALS: BP 149/109
[2019-12-28 09:58] LABS: Basophils # (auto) 0 10 ^3/uL (0-0.2); Eosinophils # (auto) 0.1 10 ^3/uL (0-0.8); Mean Corpuscular Hemoglobin 25.3 pg (28.0-32.0); White Blood Cell 6.3 10^3/uL (4.4-10.8)
[2019-12-28 10:00] LABS: Basophils % (auto) 0.3 % (0.0-2.0); Hematocrit 28.3 % (41.0-53.0); Lymphocytes # (auto) 0.5 10 ^3/uL (0.4-5.4); Lymphocytes % (auto) 8.1 % (10.0-50.0); Mean Corpuscular Hgb Conc. 31.7 g/dL (32.0-36.0); Mean Corpuscular Volume 79.6 fL (80.0-100.0); Monocytes # (auto) 1.1 10 ^3/uL (0-1.3); Monocytes % (auto) 17.2 % (0.0-12.0); Neutrophils # (auto) 4.6 10 ^3/uL (1.6-8.6); Neutrophils % (auto) 73.4 % (37.0-80.0); Platelet Count (auto) 269 10^3/uL (140-450); Red Blood Cells 3.55 10^6/uL (4.5-5.90)
[2019-12-28] MEDS ORDERED: levoFLOXacin 500MG 100 ML IV SCH (10:00)
[2019-12-28] MEDS: MORPHINE SULF 30 mg ER tab PO SCH ×2 (10:04→22:04)
[2019-12-28] MEDS: FERROUS SULFATE 325 MG TAB PO SCH ×2 (10:04→18:00)
[2019-12-28] MEDS: FLORASTOR (S. BOULARDII) 250 MG CAP PO SCH (10:04)
[2019-12-28] MEDS: APIXABAN 5 MG TAB PO SCH ×2 (10:04→21:54)
[2019-12-28] MEDS: PANTOPRAZOLE 40 MG TAB PO SCH (10:04)
[2019-12-28] MEDS: METOPROLOL TARTRATE 25 MG TAB PO SCH ×2 (10:04→21:54)
[2019-12-28 10:15] LABS: BUN/Creatinine Ratio 18.8; Calcium 8.9 mg/dL (8.5-10.1); Potassium 3.5 mmol/L (3.5-5.1)
--- NOTE | 2019-12-28 10:40 | NUR ---
DR REED AT BEDSIDE INFORMED ON HYPOACTIVE BOWEL SOUNDS AND LACK OF COLOSTOMY OUTPUT FOR 2 DAYS PER PATIENT REPORT. ENSURE NPO STATUS FOR NOW, PATIENT VERBALIZES UNDERSTANDING.
[2019-12-28] MEDS: ALBUMIN 25% 100 ML IV SCH (12:21)
[2019-12-28 13:00] VITALS: BP 152/109
--- NOTE | 2019-12-28 15:37 | NUR ---
FAMILY CALL PASSWORD PROVIDED, UPDATED ON PATIENT CONDITION AND PLAN OF CARE. ALL QUESTIONS ANSWERED.
--- NOTE | 2019-12-28 16:37 | NUR ---
TEMP 100.9 COOLING MEASURES INITIATED, PAGE TO DR SPANN, NEW ORDERS RECEIVED FOR ANTIBIOTIC CHANGES AND PRN TYLENOL.
[2019-12-28] MEDS ORDERED: MEROPENEM 1GM IVPB 100 ML IV ONE (16:45)
[2019-12-28] MEDS ORDERED: ACETAMINOPHEN 325 MG TAB PO PRN (16:45)
[2019-12-28 17:13] VITALS: BP 142/104
--- NOTE | 2019-12-28 19:20 | NUR ---
Opening Shift Note Assumed care of patient, awake and alert. No S/S of distress/SOB. Patient temperature reassess 98.7. instructed on POC and to call for assist PRN, will continue to monitor for changes Q1hr and PRN.
--- NOTE | 2019-12-28 20:36 | NUR ---
Pain Patient c/o pain 10/10 in abdomen area. Pain medication administered PRN.
--- NOTE | 2019-12-28 21:06 | NUR ---
Re Pain Patient states pain is 7/10. "It got a little better"
[2019-12-28] MEDS: LINEZOLID 600MG/300ML 300 ML IV SCH (21:54)
[2019-12-28 22:00] VITALS: BP 154/107
[2019-12-28] MEDS: MEROPENEM 1GM IVPB 100 ML IV SCH (23:49)
[2019-12-29] MEDS: HYDROmorphone HCL 2 MG/ML VL IV PRN ×5 (00:50→19:59)
--- NOTE | 2019-12-29 00:50 | NUR ---
Pain Patient c/o pain 10/10 abdomen area. Pain medication administered.
--- NOTE | 2019-12-29 01:20 | NUR ---
Re Pain Patient is sleeping no signs of pain or distress.
[2019-12-29] MEDS: PROMETHAZINE HCL 25 MG/ML 1ML IV PRN ×3 (01:51→23:54)
--- NOTE | 2019-12-29 01:51 | NUR ---
Nausea Patient c/o nausea. Nausea medication administered.
--- NOTE | 2019-12-29 02:21 | NUR ---
RE Nausea Patient is sleeping. No sign or nausea or distress.
[2019-12-29 05:00] VITALS: BP 149/109
[2019-12-29] MEDS: SODIUM CHLORIDE 0.9% 1,000 ML IV SCH ×2 (05:28→14:15)
--- NOTE | 2019-12-29 05:28 | NUR ---
Pain Patient c/o pain 05/22. Abdomen area pain medication administered.
--- NOTE | 2019-12-29 05:58 | NUR ---
RE Pain Patient is sleeping, no signs of distress or pain.
[2019-12-29 07:02] LABS: Potassium 3.3 mmol/L (3.5-5.1)
[2019-12-29 07:07] LABS: Hematocrit 28.4 % (41.0-53.0); Hemoglobin 9.1 g/dL (13.5-17.5); Mean Corpuscular Hemoglobin 25.3 pg (28.0-32.0); Mean Corpuscular Hgb Conc. 31.9 g/dL (32.0-36.0); Mean Corpuscular Volume 79.3 fL (80.0-100.0); Platelet Count (auto) 278 10^3/uL (140-450); Red Blood Cells 3.58 10^6/uL (4.5-5.90); Red Cell Distribution Width 17.9 % (11.8-14.3)
[2019-12-29 07:15] LABS: Basophils % (manual) 0 (0.0-2.0); Blast Cells 0; Metamyelocytes % 0; Myelocytes % 0; Promyelocytes % 0; Reactive Lymphocytes 0
[2019-12-29 07:17] LABS: BUN/Creatinine Ratio 19.8
[2019-12-29 07:43] LABS: Band Neutrophils % (manual) 2; Eosinophils % (manual) 2 (0-7); Lymphocytes % (manual) 16 (10.0-50.0); Monocytes % (manual) 23 (0-12)
[2019-12-29 08:00] VITALS: BP 165/120
[2019-12-29] MEDS: FERROUS SULFATE 325 MG TAB PO SCH ×2 (08:00→17:27)
--- NOTE | 2019-12-29 08:15 | NUR ---
Opening Shift Note Assumed care of patient, asleep, even unlabored breaths. No S/S of distress/SOB or pain. Will continue to monitor for changes Q1hr and PRN.
[2019-12-29] MEDS: FLORASTOR (S. BOULARDII) 250 MG CAP PO SCH (08:44)
[2019-12-29] MEDS: PANTOPRAZOLE 40 MG TAB PO SCH (08:44)
[2019-12-29] MEDS: APIXABAN 5 MG TAB PO SCH (08:44)
[2019-12-29] MEDS: METOPROLOL TARTRATE 25 MG TAB PO SCH (08:44)
[2019-12-29] MEDS: MEROPENEM 1GM IVPB 100 ML IV SCH ×2 (08:44→15:22)
[2019-12-29] MEDS: MORPHINE SULF 30 mg ER tab PO SCH (08:45)
--- NOTE | 2019-12-29 09:45 | NUR ---
PAIN PATIENT C/O PAIN 04/22 TO ABDOMEN. PATIENT STATING "ITS SORE AND SHARP PAIN." WILL MEDICATE PER MD ORDERS
--- NOTE | 2019-12-29 09:45 | NUR ---
NAUSEA Patient c/o nausea. Will medicate per md orders
[2019-12-29] MEDS: LINEZOLID 600MG/300ML 300 ML IV SCH ×2 (10:11→21:33)
[2019-12-29 12:00] VITALS: BP 165/126
[2019-12-29] MEDS: hydrALAZINE HCL 20 MG/ML VL IV PRN ×2 (12:08→21:57)
--- NOTE | 2019-12-29 12:15 | NUR ---
MD ROUNDS DR JOHNSON AT BEDSIDE DISCUSSING POC WITH PATIENT. ELIZABETH REQUESTING PATHOLOGY REPORT FROM PREVIOUS ADMISSION IN NOVEMBER. WILL FOLLOW UP
--- NOTE | 2019-12-29 12:50 | NUR ---
PATHOLOGY LEFT MESSAGE RE: PATIENT PRIOR ADMISSION FROM NOVEMBER PER MD REQUEST. AWAITING REPORT
--- NOTE | 2019-12-29 13:00 | NUR ---
COLOSTOMY CHANGED PATIENT COLOSTOMY BAG PER PATIENT REQUEST. PATIENT TOLERATED WELL. WILL CONTINUE TO MONITOR
--- NOTE | 2019-12-29 13:48 | NUR ---
Nutrition Assessment Notes Please refer to link for full assessment notes. Est Energy needs: 4191-6992 kcals (20-23 kcal/kgBW) Est Protein needs: 65-81 gms/day (0.8-1.0 gm/kgBW) Will continue to monitor and reassess prn. Addendum: 12/29/19 at [address] Amended: Links added.
--- NOTE | 2019-12-29 15:00 | NUR ---
PAIN PATIENT C/O PAIN 04/22 TO ABDOMEN. PATIENT STATING "ITS A SHARP PAIN." WILL MEDICATE PER MD ORDERS
[2019-12-29] MEDS ORDERED: POTASSIUM CHL 20MEQ/100ML 100 ML IV ONE (15:30)
[2019-12-29] MEDS ORDERED: OMNIPAQUE ORAL SOLN 500ml 12mg/ml PO ONE (15:31)
[2019-12-29] MEDS ORDERED: IOHEXOL 300 MG/ML 100ML BOTTLE IJ ONE (15:31)
[2019-12-29 17:00] VITALS: BP 159/117
[2019-12-29] MEDS ORDERED: SUCRALFATE 1 GM/10 ML ORAL SUSP PO SCH (17:00)
[2019-12-29] MEDS ORDERED: HYDR-4833 PO (17:50)
[2019-12-29] MEDS ORDERED: APIX5TAB PO (17:52)
--- NOTE | 2019-12-29 18:51 | NUR ---
MD CALL RECEIVED CALL FORM DR JOHNSON RE: PATIENT CT. NEW ORDERS RECEIVED/ WILL ENDORSE TO ELECTRICIAN HELPER AUTOMOTIVE. WILL CONTINUE TO MONITOR
--- NOTE | 2019-12-29 19:28 | NUR ---
PAGED PAGETim WATSON RE: PATIENT CT OF ABDOMEN/PELVIS PER DR JOHNSON. ENDORSED TO SUPERVISOR MIXING.
--- NOTE | 2019-12-29 19:59 | NUR ---
Pain Patient c/o pain 10/10 to abdomen area. Pain Medication given.
--- NOTE | 2019-12-29 19:59 | NUR ---
Pain Patient c/o pain 10/10 to the abdomen area. pain medication given.
--- NOTE | 2019-12-29 20:29 | NUR ---
Re Pain patient's pain lower to 8/10.
--- NOTE | 2019-12-29 20:43 | NUR ---
Opening Shift Note Assumed care of patient, awake and alert. No S/S of distress/SOB. Instructed on POC and to call for assist PRN, will continue to monitor for changes Q1hr and PRN. Addendum: 12/29/19 at 2044 by DENNY JIMENEZ RN RN Actual time 1944
[2019-12-29] MEDS: PANTOPRAZOLE 40 MG/10 ML VIAL INJ IV SCH (21:32)
[2019-12-29 22:00] VITALS: BP 166/126
--- NOTE | 2019-12-29 22:30 | NUR ---
NGT 2 attempts tried for NGT. Patient requested some rest time before any further attempts.
--- NOTE | 2019-12-29 22:40 | NUR ---
Temperature Patient temperature of 100.6, cooling measures taken.
--- NOTE | 2019-12-29 23:58 | NUR ---
Nausea Patient c/o nausea. Nausea medication administered.
--- NOTE | 2019-12-30 00:02 | NUR ---
Fidelia Hospitalist Hospitalist made aware of patient's HBP 159/118, HR-135. No new orders given, will continue to monitor.
--- NOTE | 2019-12-30 00:10 | NUR ---
NGT Placement [address] to 65cm. Green bile color liquid drained from tube.
[2019-12-30] MEDS: SODIUM CHLORIDE 0.9% 1,000 ML IV SCH ×2 (00:15→10:15)
--- NOTE | 2019-12-30 00:24 | NUR ---
RE Nausea Patient states to be no longer nauseous
[2019-12-30] MEDS: HYDROmorphone HCL 2 MG/ML VL IV PRN ×6 (01:07→23:05)
--- NOTE | 2019-12-30 01:07 | NUR ---
Pain Patient c/o pain 10/10 to abdomen. Pain medication administered
--- NOTE | 2019-12-30 01:37 | NUR ---
Re Pain Patient is sleeping, no pain or sign of distress.
[2019-12-30 05:00] VITALS: BP 158/115
--- NOTE | 2019-12-30 05:16 | NUR ---
Pain Patient c/o pain 10/10 to the abdomen area. Pain medication administered.
[2019-12-30] MEDS: hydrALAZINE HCL 20 MG/ML VL IV PRN ×2 (05:17→20:37)
--- NOTE | 2019-12-30 05:46 | NUR ---
RE Pain Patient is currently sleeping, no sign of pain or distress.
--- NOTE | 2019-12-30 05:51 | NUR ---
Tachycardia Patient's heart rate has been sustaining in the 140's for over 30 minutes. Page hospitalist, waiting to call back.
[2019-12-30] MEDS ORDERED: METOPROLOL TARTRATE 25 MG TAB PO ONE (06:15)
--- NOTE | 2019-12-30 06:40 | NUR ---
Hospitalist Called Back Dr. Cortez called back, ordered Metoprolol 5MG IV q5min PRN HR >140. Repeated orders to verified.
[2019-12-30] MEDS: METOPROLOL TARTRATE 1MG/1ML-5ML VIAL IV PRN ×2 (06:48→21:52)
[2019-12-30 06:58] LABS: Potassium 3.5 mmol/L (3.5-5.1)
[2019-12-30 07:10] LABS: Red Cell Distribution Width 18.2 % (11.8-14.3)
[2019-12-30 07:11] LABS: BUN/Creatinine Ratio 17.5; Calcium 9.3 mg/dL (8.5-10.1)
[2019-12-30 07:12] LABS: Hemoglobin 10.7 g/dL (13.5-17.5); Mean Corpuscular Hemoglobin 25.3 pg (28.0-32.0); Mean Corpuscular Hgb Conc. 31.5 g/dL (32.0-36.0); Mean Corpuscular Volume 80.1 fL (80.0-100.0); Platelet Count (auto) 360 10^3/uL (140-450); Red Blood Cells 4.24 10^6/uL (4.5-5.90)
--- NOTE | 2019-12-30 07:14 | NUR ---
Closing Note Endorse care to dayshift nurse. NGT Output for NOC shift" 1999ml
[2019-12-30 07:15] LABS: Band Neutrophils % (manual) 0; Basophils % (manual) 0 (0.0-2.0); Blast Cells 0; Metamyelocytes % 0; Myelocytes % 0; Promyelocytes % 0
--- NOTE | 2019-12-30 07:46 | NUR ---
TEMPERATURE PATIENT TEMP 102.4. COOLING MEASURES PLACED. PATIENT DOES NOT HAVE MEDICATION ORDERED FOR TEMP. PAGED MD FOR ORDERS. MD RETURNED CALL. NEW ORDERS RECEIVED/WILL CARRY OUT. WILL CONTINUE TO MONITOR
[2019-12-30 07:57] LABS: Eosinophils % (manual) 2 (0-7); Lymphocytes % (manual) 26 (10.0-50.0); Monocytes % (manual) 25 (0-12); Reactive Lymphocytes 2
[2019-12-30 08:00] VITALS: BP 148/107
[2019-12-30] MEDS ORDERED: ACETAMINOPHEN 650 MG RECT SUPP PR PRN (08:00)
--- NOTE | 2019-12-30 08:00 | NUR ---
Opening Shift Note Assumed care of patient, awake, alert, and oriented. No S/S of distress/SOB. Patient not c/o pain at this time. Informed patient of his temperature being elevated and informed patient of medication administration. Patient does not want Tylenol suppository. Educated patient, patient verbalized understanding and refuses at this time. Will reassess. Will continue to monitor for changes Q1hr and PRN.
--- NOTE | 2019-12-30 08:10 | NUR ---
TEMPERATURE PATIENT TEMPERATURE REASSESSED AT 102.0. PATIENT INFORMED OF MEDICATION PRESCRIBED. PATIENT REFUSING SUPPOSITORY. EDUCATED PATIENT, PATIENT VERBALIZED UNDERSTANDING AND CONTINUES TO REFUSE. WILL CONTINUE COOLING MEASURES. WILL CONTINUE TO MONITOR
[2019-12-30] MEDS: MEROPENEM 1GM IVPB 100 ML IV SCH ×3 (08:24→16:36)
--- NOTE | 2019-12-30 08:50 | NUR ---
TEMPERATURE PATIENT TEMPERATURE REASSESSED. 100.9. PATIENT CONTINUES TO REFUSE A SUPPOSITORY. WILL CONTINUE COOLING MEASURES. WILL CONTINUE TO MONITOR
--- NOTE | 2019-12-30 09:09 | NUR ---
PAGED PAGETim JOHNSON RE: PATIENT TEMP AND REFUSAL OF MEDICATION. RETURN CALL RECEIVED A RETURN CALL FROM DR JOHNSON RE: PATIENT TEMP. NEW ORDERS RECEIVED/WILL CARRY OUT. WILL CONTINUE TO MONITOR
[2019-12-30] MEDS: ACETAMINOPHEN 650 mg PER 20 mL UD PO PRN (09:28)
[2019-12-30] MEDS ORDERED: METOPROLOL TARTRATE 25 MG TAB PO SCH (10:00)
[2019-12-30] MEDS ORDERED: ENOXAPARIN SOD 40 MG/0.4 ML SYRINGE SC SCH (10:00)
--- NOTE | 2019-12-30 10:15 | NUR ---
PAIN PATIENT C/O PAIN 04/22 TO ABDOMEN. PATIENT STATING "ITS AN ACHY PAIN." WILL MEDICATE PER MD ORDERS
[2019-12-30] MEDS: PANTOPRAZOLE 40 MG/10 ML VIAL INJ IV SCH ×2 (10:23→21:53)
--- NOTE | 2019-12-30 11:40 | NUR ---
MD ROUNDS DR JOHNSON AT BEDSIDE DISCUSSING POC WITH PATIENT. NEW ORDERS RECEIVED/WILL CARRY OUT. WILL CONTINUE TO MONITOR
[2019-12-30] MEDS: LINEZOLID 600MG/300ML 300 ML IV SCH (11:50)
--- NOTE | 2019-12-30 12:50 | NUR ---
MD ROUNDS DR VILLAVICENCIO AT BEDSIDE DISCUSSING POC WITH PATIENT. NEW ORDERS RECEIVED/WILL CARRY OUT. WILL CONTINUE TO MONITOR
[2019-12-30 13:00] VITALS: BP 148/122
[2019-12-30] MEDS ORDERED: fentaNYL 75MCG/HR 75 MCG/HR PAT TD SCH (13:00)
--- NOTE | 2019-12-30 14:50 | NUR ---
PAIN PATIENT C/O PAIN 04/22 TO ABDOMEN. PATIENT STATING "ITS AN ACHY PAIN." WILL MEDICATE PER MD ORDERS
--- NOTE | 2019-12-30 15:29 | NUR ---
I received a call from Dr. Guzmán regarding order to transfer this patient to higher level of care for oncology surgery. I called [facility] and spoke with Greenhouse Specialist Zack [phone], she said we can reach out to [facility] as well as [facility]. Authorization number for transfer is [id number], and authorization number for [facility] is [id number].
--- NOTE | 2019-12-30 16:00 | NUR ---
FENTANYL PATCH 25MCG PATCH TO LEFT UPPER CHEST
--- NOTE | 2019-12-30 16:19 | NUR ---
I called [facility] and spoke with Carline regarding the need to transfer this patient-provided her with contact information to Dr. Guzmán as well as the nurse's station. Faxed requested clinical information to [facility]. Faxed transfer request to [facility] as well. I spoke with patient's nurse Guillermina to update her on the status of the transfer, requested that a COVID-19 test be ordered in anticipation of transfer.
[2019-12-30] MEDS: fentaNYL 25MCG/HR 25 MCG/HR PAT TD SCH (16:40)
[2019-12-30 17:00] VITALS: BP 161/116
--- NOTE | 2019-12-30 17:06 | NUR ---
I called [facility] ([phone]) and spoke with Shannan, placed patient on will call pending transfer to higher level of care. I spoke with nurse Sarmiento and updated her on the status of the transfer.
[2019-12-30] MEDS ORDERED: VANCOMYCIN PER PHARMACY 0 MG IV SCH (17:15)
--- NOTE | 2019-12-30 17:52 | NUR ---
COVID COVID SWAB SENT TO LAB
--- NOTE | 2019-12-30 18:40 | NUR ---
PAIN PATIENT C/O PAIN 04/22 TO ABDOMEN. PATIENT STATING "ITS AN ACHY PAIN." WILL MEDICATE PER MD ORDERS
--- NOTE | 2019-12-30 18:55 | NUR ---
NG TUBE EMPTIED APPROXIMATELY 600 ML OF DARK GREEN LIQUID FROM CANISTER.
[2019-12-30] MEDS: D5W/SOD CHLO 0.9% 1,000 ML IV SCH (19:11)
--- NOTE | 2019-12-30 19:30 | NUR ---
Opening Shift Note Assumed care of patient, awake and alert. No S/S of distress/SOB. Patient c/o moderate generalized abdomen pain. NG tube placed to the right nare draining green liquid. Instructed on POC and to call for assist PRN, will continue to monitor for changes Q1hr and PRN.
[2019-12-30 20:00] VITALS: BP 154/112
[2019-12-30] MEDS: ENOXAPARIN SOD 80 MG/0.8ML SYRINGE SC SCH (21:53)
[2019-12-30] MEDS: VANCOMYCIN 1GM/250ML 250 ML IV SCH (21:53)
[2019-12-30 22:00] VITALS: BP 154/112
--- NOTE | 2019-12-30 22:00 | NUR ---
Temperature Patient has a temperature of 101, cooling measures taken
--- NOTE | 2019-12-30 22:45 | NUR ---
LFA IV removal IV DC'd with clean sterile technique, catheter fully intact. Pressure dressing applied to site. Patient tolerated well.
--- NOTE | 2019-12-30 22:48 | NUR ---
IV insertion IV access obtained, via clean sterile technique by inserting 22 gauge catheter at after attempts. IV secured properly. No trauma to site. Patient tolerated well.
--- NOTE | 2019-12-30 23:05 | NUR ---
Pain Patient c/o of pain 10/10 to generalized stomach. Pain medication administered.
--- NOTE | 2019-12-30 23:35 | NUR ---
RE Pain patient is currently resting with eyes closed.
[2019-12-31] MEDS: PIPERACILLIN-TAZOB 3.375GM 100 ML IV SCH ×4 (00:31→17:28)
[2019-12-31] MEDS: ACETAMINOPHEN 650 mg PER 20 mL UD PO PRN (00:31)
--- NOTE | 2019-12-31 00:31 | NUR ---
Temperature Patient still has a temperature of 101 after cooling measures. Oral Tylenol given for temperature.
--- NOTE | 2019-12-31 01:31 | NUR ---
RE Temperature Patient's temperature is 100, continue with cooling measures.
[2019-12-31] MEDS: D5W/SOD CHLO 0.9% 1,000 ML IV SCH ×3 (02:45→22:45)
--- NOTE | 2019-12-31 03:00 | NUR ---
Temperature Reassessed temperature 99.1
[2019-12-31] MEDS: HYDROmorphone HCL 2 MG/ML VL IV PRN ×5 (03:07→22:37)
--- NOTE | 2019-12-31 03:07 | NUR ---
Pain Patient c/o pain 10/10 to abdomen. Pain medication administered.
--- NOTE | 2019-12-31 03:37 | NUR ---
RE Pain Patient stated "My pain went down to a 7"
[2019-12-31 05:58] VITALS: BP 141/114
[2019-12-31 06:49] LABS: BUN/Creatinine Ratio 14.6; Calcium 9.1 mg/dL (8.5-10.1); Potassium 3.4 mmol/L (3.5-5.1)
[2019-12-31 06:56] LABS: Hematocrit 34.5 % (41.0-53.0); Hemoglobin 10.8 g/dL (13.5-17.5); Mean Corpuscular Hgb Conc. 31.4 g/dL (32.0-36.0); Mean Corpuscular Volume 79.8 fL (80.0-100.0); Platelet Count (auto) 338 10^3/uL (140-450); Red Blood Cells 4.33 10^6/uL (4.5-5.90); Red Cell Distribution Width 18.2 % (11.8-14.3); White Blood Cell 4.6 10^3/uL (4.4-10.8)
[2019-12-31 07:08] LABS: Basophils % (manual) 0 (0.0-2.0); Blast Cells 0; Metamyelocytes % 0; Myelocytes % 0; Promyelocytes % 0; Reactive Lymphocytes 0
--- NOTE | 2019-12-31 07:25 | NUR ---
Closing Note Endorsed care to day shift nurse. Emptied canister for NOC 760ml.
[2019-12-31 07:36] LABS: Band Neutrophils % (manual) 4; Eosinophils % (manual) 2 (0-7); Lymphocytes % (manual) 36 (10.0-50.0); Monocytes % (manual) 27 (0-12)
--- NOTE | 2019-12-31 08:00 | NUR ---
Opening Shift Note Assumed care of patient, awake, alert, and oriented. No S/S of distress/SOB. Patient not c/o pain at this time, medicated at 0716. Bed in lowest/locked position, bed rails upx2, call light within reach. Instructed patient on POC, patient verbalized understanding. Will continue to monitor for changes Q1hr and PRN.
--- NOTE | 2019-12-31 08:10 | NUR ---
BLOOD PRESSURE PATIENT B/P 165/126. WILL MEDICATE PER MD ORDERS
[2019-12-31] MEDS: hydrALAZINE HCL 20 MG/ML VL IV PRN ×2 (08:22→17:54)
[2019-12-31 09:06] VITALS: BP 165/126
[2019-12-31] MEDS: ENOXAPARIN SOD 80 MG/0.8ML SYRINGE SC SCH ×2 (09:53→22:37)
[2019-12-31] MEDS: PANTOPRAZOLE 40 MG/10 ML VIAL INJ IV SCH ×2 (09:53→22:37)
[2019-12-31] MEDS: VANCOMYCIN 1GM/250ML 250 ML IV SCH ×2 (09:53→23:50)
--- NOTE | 2019-12-31 11:20 | NUR ---
PAIN PATIENT C/O PAIN 04/22 TO ABDOMEN. PATIENT STATING "ITS AN ACHY PAIN." WILL MEDICATE PER MD ORDERS
--- NOTE | 2019-12-31 11:45 | NUR ---
BLOOD PRESSURE/HEART RATE DR JOHNSON AWARE OF PATIENT HIGH HEART RATE AND HIGH BLOOD PRESSURE. NO NEW ORDERS RECEIVED AT THIS TIME. WILL CONTINUE TO MONITOR
--- NOTE | 2019-12-31 11:45 | NUR ---
MD ROUNDS DR JOHNSON AT BEDSIDE DISCUSSING POC WITH PATIENT. NEW ORDERS RECEIVED/WILL CARRY OUT. WILL CONTINUE TO MONITOR
[2019-12-31 12:15] VITALS: BP 145/115
--- NOTE | 2019-12-31 13:55 | NUR ---
DR WEI SPOKE WITH DR WEI RE: PATIENT RADIATION. DR WEI REQUESTING TO SPEAK TO PATIENT'S PATIENT ESCORT. INFORMED URIEL VELARDE IS HIS PATIENT ESCORT AND THIS RN WILL PAGE HER PER REQUEST
--- NOTE | 2019-12-31 14:06 | NUR ---
CASE MANAGEMENT SPOKE WITH URIEL, DIRECTOR OF CONSTRUCTION, RE: DR WEI REQUEST TO SPEAK TO HER. GAVE URIEL WEI'S NUMBER .
--- NOTE | 2019-12-31 14:12 | NUR ---
MOTHER CRISTOBAL, MOM, PHONE #
--- NOTE | 2019-12-31 14:26 | NUR ---
I received a phone message from Dr. Eldridge talking about wanting to start patient on palliative radiation-I called his office and left message [phone]. I [address]. Guzmán and she said patient does not want palliative treatment at this time, we are continuing to pursue the transfer to higher level of care.
--- NOTE | 2019-12-31 14:30 | NUR ---
PAIN PATIENT C/O PAIN 10/10 TO ABDOMEN. WILL MEDICATE PER MD ORDERS
[2019-12-31 14:36] LABS: INR 1.26 (0.9-1.15)
[2019-12-31] MEDS: MORPHINE SULF INJ 2 MG/ML SYRINGE 1ML IV PRN ×2 (14:44→19:01)
--- NOTE | 2019-12-31 14:46 | NUR ---
Nutrition Followup Notes Pt wt is 76.2 Pt was sleeping when rounded this morning. Pt is currently NPO d/t scheduled medical procedure. Prior to pt NPO status, Pt appetite was poor aeb ave 35% x5 PO intake per RN doc. Pt in no noted distress per RN doc. Will continue to closely monitor pertinent labs, PO intake and skin status prn. Will followup in 2-3 days Est Energy needs: 3941-5784 kcals (20-23 kcal/kgBW) Est Protein needs: 65-81 gms/day (0.8-1.0 gm/kgBW) Will continue to monitor and reassess prn. LABS: Pot 3.4 H, Gluc 116 H, Alb 2.5 L GI: Last BM noted on 12/29 per RN doc BS: 19 low risk. Please refer to wound assessment report for full details. PES: Problem 1) Increased nutrient needs r/t pt currently with no PO intake aeb pt NPO status 2) Altered nutrition related lab values r/t current medical condition aeb hyperglycemia, mod hypoalbuminemia Comments Will continue to closely monitor pertinent labs, PO intake and skin status prn. Will followup in 2-3 days 1) Continue to closely monitor pt NPO status 2) Gradually advance pt to oral diet when medically feasible and as tolerated 3) Once pt diet is advanced, continue to carefully monitor Pt PO intake to meet at least 75% of meals 4) Continue current plan of care
--- NOTE | 2019-12-31 14:58 | NUR ---
I contacted [facility] Noemi regarding pending transfer of this patient to facility for higher care (Patient diagnosed with rectal cancer. S/P Reyes's procedure with colostomy). projects manager was informed by [facility] transfer worker, Rajinder that this patient's clinical notes were received and was pending physician review. Rajinder provided protective services case worker with reference number [id number] for this case and the name of the transfer worker Carline responsible and assigned to this case. Rajinder stated if bed becomes available this afternoon CM would be notified otherwise he contact us in the morning.
--- NOTE | 2019-12-31 15:14 | NUR ---
assessment Patient is a 49 year old male who is alert and oriented. Prior to admission patient lived home with family and functioned with assistance. Per patient he uses a cane at home. Patient is aware of his consult for transfer. Patient agrees to transfer. Patient has a history of colon cancer and has a colostomy. Jennifer case sealer is working on transfer now. I informed patient he has a right to speak to a social human services assistants regarding all care. I informed patient he has a right to participate in any and all discharge planning. Patient does not have a POA and advanced directive. I have offered patient information on POA and advanced directives. I informed the patient the advantages and benefits of having an Advanced Directive. Patient verbalized understanding and agreed to discharge plan. Addendum: 12/31/19 at 1516 by Flores Cramer Amended: Links added.
--- NOTE | 2019-12-31 16:20 | NUR ---
PAIN PATIENT C/O PAIN 10/ TO ABDOMEN. PATIENT STATING "ITS A SHARP PAIN." WILL MEDICATE PER MD ORDERS
--- NOTE | 2019-12-31 16:39 | NUR ---
Received order from Dr Guzmán to transfer this patient to higher level of care for surgery oncology. Patient dx with rectal cancer, S/P Hartmans procedure with colostomy. I faxed contact information, labs and clinical notes to [facility] transfer center. I contacted transfer center and spoke with Anna transfer worker who confirmed receipt of all faxed documents. She also stated that the patients clinicals were pending review and that she would call tomorrow with results.
[2019-12-31 16:54] VITALS: BP 158/112
--- NOTE | 2019-12-31 17:30 | NUR ---
BLOOD PRESSURE PATIENT B/P 158/112. WILL MEDICATE PER MD ORDERS
[2019-12-31] MEDS ORDERED: TPN PER PHARMACY 0 ML IV SCH (18:30)
--- NOTE | 2019-12-31 18:55 | NUR ---
PAIN PATIENT C/O PAIN 10/10 TO ABDOMEN. PATIENT STATING "HES NOT COMFORTABLE." WILL MEDICATE PER MD ORDERS
--- NOTE | 2019-12-31 19:30 | NUR ---
Opening Shift Note Assumed care of patient, awake and alert. No S/S of distress/SOB. Instructed on POC and to call for assist PRN, will continue to monitor for changes Q1hr and PRN. Acosta intact, patent and below level of bladder. IV intact, patent and located in left hand, 22G. Right quadrant colostomy present with absence of feces. Bed locked in lowest position and bed rails up x2. Call light within reach.
[2019-12-31 20:00] VITALS: BP 128/90
[2019-12-31] MEDS ORDERED: POTASSIUM CHL 20MEQ/100ML 100 ML IV ONE (20:00)
--- NOTE | 2019-12-31 21:00 | NUR ---
[facility] called and stated that they are not able to accept the patient at this time. She also stated that the doctor mentioned that the patient is not a candidate for surgery and his bowels are not "resectable". Will continue to monitor patient and mention during endorsement of care at end of shift.
[2019-12-31 22:40] VITALS: BP 128/90
[2020-01-01] MEDS: PIPERACILLIN-TAZOB 3.375GM 100 ML IV SCH ×4 (01:20→18:16)
[2020-01-01] MEDS: MORPHINE SULF INJ 2 MG/ML SYRINGE 1ML IV PRN ×3 (02:44→20:30)
[2020-01-01] MEDS: PROMETHAZINE HCL 25 MG/ML 1ML IV PRN (03:21)
[2020-01-01 05:18] VITALS: BP 150/107
[2020-01-01 06:14] LABS: Potassium 3.2 mmol/L (3.5-5.1)
[2020-01-01] MEDS: hydrALAZINE HCL 20 MG/ML VL IV PRN (06:22)
[2020-01-01 06:25] LABS: Albumin 2.5 g/dL (3.4-5.0); BUN/Creatinine Ratio 15.6; Bilirubin, Total 0.8 mg/dL (0.2-1.0); Calcium 8.4 mg/dL (8.5-10.1); Phosphorus 3.6 mg/dL (2.5-4.90); Pre Albumin 8.9 mg/dL (20.0-40.0); Total Protein 6.9 g/dL (6.4-8.2)
[2020-01-01] MEDS: HYDROmorphone HCL 2 MG/ML VL IV PRN ×4 (06:56→22:15)
[2020-01-01] MEDS: D5W/SOD CHLO 0.9% 1,000 ML IV SCH ×2 (08:53→18:45)
[2020-01-01 09:00] VITALS: BP 128/96
[2020-01-01] MEDS: PANTOPRAZOLE 40 MG/10 ML VIAL INJ IV SCH ×2 (10:15→22:14)
[2020-01-01] MEDS: VANCOMYCIN 1GM/250ML 250 ML IV SCH ×2 (10:16→22:14)
[2020-01-01] MEDS: ENOXAPARIN SOD 80 MG/0.8ML SYRINGE SC SCH ×2 (10:16→22:14)
--- NOTE | 2020-01-01 10:43 | NUR ---
I received a message from [facility] Transfer center letting me know that their surgeon is not accepting this patient because they don't consider him a good surgical candidate.
[2020-01-01] MEDS ORDERED: DEXTROSE (50%) 50ML SYRG IV SCH (12:00)
[2020-01-01] MEDS: InsuLIN REG 1unit/0.01ml Soln (100units/ml) SC SCH ×2 (12:00→18:00)
[2020-01-01 13:00] VITALS: BP 137/111
[2020-01-01] MEDS ORDERED: LIDOCAINE 1% (LOCAL ANESTH.) PF 5ml SDV ID ONE (13:30)
--- NOTE | 2020-01-01 13:40 | NUR ---
PICC line placement Patient educated on need for PICC line placement. All risks and benefits explained and all questions and concerns addressed prior to procedure. Noted past medical history and allergies with no contraindications. INR and Plt counts within acceptable range. 5 fr PICC line inserted via R BRACHIAL vein using [employer] US and Tip Location System. Sterile technique with maximum barrier precautions utilized. Blood return obtained from each of THE lumens and each flushed easily with NS using proper technique. PICC secured with Stat-lock; biodisc and occlusive dressing applied. Stat portable chest x-ray obtained for PICC tip placement. *Baseline Arm Circumference 26 CM. EXTERNAL LENGTH 0CM, INTERNAL LENGTH 43CM. PICC lot # [id number]. Note:
--- NOTE | 2020-01-01 13:46 | NUR ---
OK to use PICC line Xray completed. OK to use PICC line. PRIMARY RN NOTIFIED
[2020-01-01] MEDS ORDERED: TPN PER PHARMACY 0 ML IV SCH (14:00)
[2020-01-01] MEDS: POTASSIUM CHL 20MEQ/100ML 100 ML IV SCH ×2 (14:12→16:53)
[2020-01-01] MEDS: ACCU-CHEK COMFORT CURVE STRIP VI SCH ×2 (14:12→18:53)
--- NOTE | 2020-01-01 14:26 | NUR ---
Nutrition Followup Notes WT : 76.1 kg Pt was sleeping when rounded this morning. Pt is currently NPO to begin PN support from tonight @ 44 ml.hr providing 1150 kcals and 50 gm proteins. Est Energy needs: 4309-1690 kcals (20-23 kcal/kgBW), Est Protein needs: 65-81 gms/day (0.8-1.0 gm/kgBW). Will continue to monitor and reassess prn. LABS: GLU 108 H, TG 169 H rest lab wnl GI: Last BM noted on 12/29 per RN doc BS: 18 low risk. Please refer to wound assessment report for full details. PES: Problem 1) Increased nutrient needs r/t pt currently with no PO intake aeb pt NPO status 2) Altered nutrition related lab values r/t current medical condition aeb hyperglycemia, mod hypoalbuminemia Comments Will continue to closely monitor pertinent labs, PO intake and skin status prn. Will followup in 2-3 days 1) Gradually advance pt to oral diet when medically feasible and as tolerated . 2) advance PN support to meet > 75% of needs. 4) Continue current plan of care
--- NOTE | 2020-01-01 15:13 | NUR ---
I called [facility] ([phone]) and spoke with Nina, she confirmed that they remain on will call pending transfer to [facility].
--- NOTE | 2020-01-01 15:20 | NUR ---
01/01/20 1511 - I was contacted by Ronni at transfer center at [facility] regarding transfer of this patient. Provider reviewing patients clinical notes is requesting a hard copy of the results of this patients COVID 19 results. I faxed a hard copy of the results to the transfer center. Ronni also was requesting the authorization number for transfer of patient of [facility]. I provided Ronni the authorization number [id number] that was provided by shelter case manager Ms from [facility]. Ronni stated that he would notify CM today of providers decision.
[2020-01-01 17:00] VITALS: BP 148/112
--- NOTE | 2020-01-01 19:17 | NUR ---
Opening Shift Note Assumed care of patient. Patient is awake, alert, and oriented X 4. No S/S of respiratory distress. respirations are regular and non-labored. Pt is on RA. Acosta is intact, patent and below the level of the bladder. NG tube is patent and connected to cont suctioning. IV intact, patent, and located in left hand, 22G. PICC line R. upper arm is patent and asymptomatic. Right quadrant colostomy present with very little amount of feces. Bed locked in lowest position, bed rails up x2, call light within reach. Patient was instructed on POC and to call for assist PRN. Will continue to monitor for changes Q1hr and PRN.
[2020-01-01 20:00] VITALS: BP 149/115
[2020-01-01] MEDS ORDERED: TPN PER PHARMACY IV NR ×14 (20:00)
[2020-01-01 22:00] VITALS: BP 149/115
[2020-01-01] MEDS: SODIUM CHLOR 0.9% PF (SALINE LOCK) 10ML VIAL/SYR IV SCH (22:23)
[2020-01-02] MEDS: PIPERACILLIN-TAZOB 3.375GM 100 ML IV SCH ×4 (00:36→17:32)
[2020-01-02] MEDS: MORPHINE SULF INJ 2 MG/ML SYRINGE 1ML IV PRN ×5 (00:36→20:02)
[2020-01-02] MEDS: InsuLIN REG 1unit/0.01ml Soln (100units/ml) SC SCH ×4 (00:41→17:44)
[2020-01-02] MEDS: ACCU-CHEK COMFORT CURVE STRIP VI SCH ×4 (00:44→17:44)
[2020-01-02] MEDS: HYDROmorphone HCL 2 MG/ML VL IV PRN ×5 (02:36→21:46)
[2020-01-02 05:00] VITALS: BP 142/108
--- NOTE | 2020-01-02 05:02 | NUR ---
Paging hospitalist because patient is having severe abdominal pain that does not seem to be relieved for very long with existing pain medications. Pain is relieved for at most 30-45 minutes then returns at a high level. Patient has been sweating all night while in pain, despite currently having a temperature of 98.4, and his HR is currenly in 120s. Order received: Ketorolac 15 mg IV once.
[2020-01-02] MEDS ORDERED: KETOROLAC TROMETH 30 MG/ML 1ML VIAL IV ONE (05:15)
--- NOTE | 2020-01-02 05:33 | NUR ---
Spoke to Osman from [facility] regarding the bleeding risk with Toradol since patient has elevated APTT and is on 80 mg Sub-Q dose of Lovenox. Notified him of NG tube placement, liver mass, and current APTT results. Pharmacist agreed that in his opinion medication is safe. Will give medication.
--- NOTE | 2020-01-02 06:12 | NUR ---
1300 mls of bilious drainage noted in LCS canister.
[2020-01-02 06:41] LABS: Potassium 3.1 mmol/L (3.5-5.1)
[2020-01-02 06:53] LABS: Albumin 2.5 g/dL (3.4-5.0); BUN/Creatinine Ratio 13.6; Bilirubin, Total 0.8 mg/dL (0.2-1.0); Calcium 8.3 mg/dL (8.5-10.1); Magnesium 2.3 mg/dL (1.6-2.6); Phosphorus 3.7 mg/dL (2.5-4.90)
[2020-01-02 08:00] VITALS: BP 125/93
[2020-01-02] MEDS: POTASSIUM CHL 20MEQ/100ML 100 ML IV SCH ×2 (09:00→12:46)
[2020-01-02] MEDS: SODIUM CHLOR 0.9% PF (SALINE LOCK) 10ML VIAL/SYR IV SCH ×2 (09:49→23:42)
[2020-01-02] MEDS: ENOXAPARIN SOD 80 MG/0.8ML SYRINGE SC SCH ×2 (10:07→21:46)
[2020-01-02] MEDS: PANTOPRAZOLE 40 MG/10 ML VIAL INJ IV SCH ×2 (10:08→21:45)
[2020-01-02] MEDS: VANCOMYCIN 1GM/250ML 250 ML IV SCH ×2 (10:08→21:46)
--- NOTE | 2020-01-02 11:00 | NUR ---
FAXED PATHOLOGY REPORT WELL OPERATIVE REPORT TO [facility]. [phone]
[2020-01-02 12:00] VITALS: BP 147/105
--- NOTE | 2020-01-02 14:32 | NUR ---
01/02/20, 1433 Received call from Ronni at [facility] transfer center who stated that the transfer request on Mr. Galan had been declined for surgical and/or chemo intervention but patient could be seen on an outpatient basis. I contacted the transfer center at [facility] and spoke with coordinator Robles regarding possible transfer of this patient for higher level of care. I faxed face sheet, transfer order, medication list, labs and most current progress notes to transfer center for review. Confirmed with Robles that all faxed documents were received.
[2020-01-02] MEDS: fentaNYL 25MCG/HR 25 MCG/HR PAT TD SCH (15:53)
--- NOTE | 2020-01-02 15:59 | NUR ---
DC THORNTON CATHETER 350 ML OF CLEAR YELLOW URINE IN BAG.
[2020-01-02 17:00] VITALS: BP 136/98
[2020-01-02] MEDS ORDERED: POTASSIUM CHL 20MEQ/100ML 100 ML IV ONE (17:00)
--- NOTE | 2020-01-02 19:23 | NUR ---
Opening Shift Note Assumed care of patient. Patient is awake, alert, and oriented X 4. No S/S of respiratory distress. Respirations are regular and non-labored. Pain is reported and will be addressed by MD order. Pt is on RA. NG tube is patent and connected to cont suctioning. IV is intact, patent, and located in left hand, 22G. PICC line R. upper arm is patent and asymptomatic. Right quadrant colostomy present with little amount of feces. Urinal at bed side. Bed locked in lowest position, bed rails up x 2, call light within reach. Patient was instructed on POC and to call for assist PRN. Will continue to monitor for changes Q1hr and PRN.
[2020-01-02 20:00] VITALS: BP 131/92
[2020-01-02] MEDS ORDERED: TPN PER PHARMACY IV NR ×7 (20:00)
[2020-01-02 22:11] VITALS: BP 131/92
[2020-01-03] MEDS: PIPERACILLIN-TAZOB 3.375GM 100 ML IV SCH ×4 (00:03→18:00)
[2020-01-03] MEDS: MORPHINE SULF INJ 2 MG/ML SYRINGE 1ML IV PRN ×4 (00:04→16:21)
[2020-01-03] MEDS: ACCU-CHEK COMFORT CURVE STRIP VI SCH ×4 (00:07→17:53)
[2020-01-03] MEDS: HYDROmorphone HCL 2 MG/ML VL IV PRN ×5 (01:50→22:43)
[2020-01-03] MEDS: PROMETHAZINE HCL 25 MG/ML 1ML IV PRN (03:46)
[2020-01-03 05:00] VITALS: BP 149/100
[2020-01-03] MEDS: InsuLIN REG 1unit/0.01ml Soln (100units/ml) SC SCH ×4 (06:00→17:54)
--- NOTE | 2020-01-03 06:30 | NUR ---
NG tube drainage: 1050 mls of bilious drainage
[2020-01-03 06:39] LABS: Basophils # (auto) 0.1 10 ^3/uL (0-0.2); Basophils % (auto) 0.4 % (0.0-2.0); Eosinophils # (auto) 0.4 10 ^3/uL (0-0.8); Eosinophils % (auto) 2.7 % (0.0-7.0); Hematocrit 29.2 % (41.0-53.0); Hemoglobin 9.3 g/dL (13.5-17.5); Lymphocytes # (auto) 1.7 10 ^3/uL (0.4-5.4); Lymphocytes % (auto) 12.3 % (10.0-50.0); Mean Corpuscular Hemoglobin 24.9 pg (28.0-32.0); Mean Corpuscular Hgb Conc. 31.9 g/dL (32.0-36.0); Monocytes # (auto) 1.5 10 ^3/uL (0-1.3); Neutrophils # (auto) 10.3 10 ^3/uL (1.6-8.6); Neutrophils % (auto) 73.6 % (37.0-80.0); Nucleated Red Blood Cells % 0.2 %; Platelet Count (auto) 347 10^3/uL (140-450); Red Blood Cells 3.75 10^6/uL (4.5-5.90); Red Cell Distribution Width 18.2 % (11.8-14.3)
[2020-01-03 07:00] LABS: Albumin 2.3 g/dL (3.4-5.0); Calcium 8.3 mg/dL (8.5-10.1); Magnesium 2.3 mg/dL (1.6-2.6); Potassium 3.2 mmol/L (3.5-5.1)
[2020-01-03 07:03] LABS: BUN/Creatinine Ratio 13.4; Bilirubin, Total 0.6 mg/dL (0.2-1.0); Phosphorus 3.9 mg/dL (2.5-4.90); Total Protein 6.8 g/dL (6.4-8.2)
--- NOTE | 2020-01-03 07:35 | NUR ---
Opening Shift Note Assumed care of patient from noc shift rn. Patient is awake, alert, and oriented X 4. No S/S of distress. Non-labored respiratory pattern noted. Pain reported at this time, will address per eMar. Pt is on RA, NG tube is patent and connected to cont suctioning. IV is intact, patent, and located in left hand, 22G. PICC line R. upper arm is patent and asymptomatic. Right quadrant colostomy present with little amount of feces. Urinal at bed side. Bed locked in lowest position, bed rails up x 2, call light within reach. Plan of care discussed, patient encouraged to call for assist PRN. Will continue to monitor for changes Q1hr and PRN.
[2020-01-03 08:00] VITALS: BP 144/98
--- NOTE | 2020-01-03 09:20 | NUR ---
SPOKE TO EVER FROM [facility] INQUIRING ABOUT THIS PATIENT REGARDING POSSIBLE TRANSFER. WANTED TO TALK TO THE ADMITTING MD. DR VALENZUELA MADE AWARE.
[2020-01-03 09:22] VITALS: BP 144/98
[2020-01-03] MEDS: VANCOMYCIN 1GM/250ML 250 ML IV SCH ×2 (09:50→22:00)
[2020-01-03] MEDS: PANTOPRAZOLE 40 MG/10 ML VIAL INJ IV SCH ×2 (09:50→22:43)
[2020-01-03] MEDS: SODIUM CHLOR 0.9% PF (SALINE LOCK) 10ML VIAL/SYR IV SCH ×2 (09:50→22:00)
[2020-01-03] MEDS: ENOXAPARIN SOD 80 MG/0.8ML SYRINGE SC SCH ×2 (09:50→22:43)
--- NOTE | 2020-01-03 10:16 | NUR ---
WOUND CARE NOTE: Wound care in t o see patient per wound care request regarding " skin tear to left buttock" that are noted by bedside nurse upon assessment. Bedside nurse took photograph of patient's wounds upon discovery for reference. Patient is 49 years old male with admitting diagnosis of Left Lower Quadrant Mass Heterogenous. Patient is resting in bed in Rm. 250B. Patient is awake, alert and oriented. Patient is in no stated pain at this time. Patient is able to assist in turning and repositioning. His River score is 15. Skin/wound assessment done with assistance of patient's SHAILESH Kaye. Patient turned to his right side to assess sacral and back. Patient's L gluteal noted with 0.8x0.5cm pale pink, resolving, open partial thickness skin tear with skin erosion to dayanna wound, no drainage/odor noted. Patient is receiving BID/PRN cleaning and application of Z Guard cream to sacral, buttock with Opti foam gentle dressing to L gluteal skin tear per MD order. Patient's education provided regarding skin/wound care and pressure redistribution, verbalized understanding. Patient tolerated well. SHAILESH Kaye at bedside. RECOMMENDATION: Nursing to continue with BID/PRN cleaning and application of Z Guard cream to sacral, buttocks per MD order, Dietary consult, remind to frequent turning and repositioning, redistribute pressure points with pillows, continue monitoring by wound care while patient is hospitalized. Addendum: 01/03/20 at 1600 by Danii Sanders RN Amended: Links added.
[2020-01-03] MEDS: POTASSIUM CHL 20MEQ/100ML 100 ML IV SCH ×2 (11:54→13:48)
--- NOTE | 2020-01-03 12:40 | NUR ---
unable to run scheduled zosyn antibiotic and potassium 20meq/k-rider due to infusing previous k-rider at this time. Will resume medications, once initial dose is finished.
[2020-01-03 12:50] VITALS: BP 144/93
--- NOTE | 2020-01-03 14:03 | NUR ---
Nutrition Followup Notes WT : 76.0 kg Pt was sleepy/sleeping, very weak when rounded this morning. Pt is still NPO d/t persistent N/V, abd pain. Pt currently on PN support @ 53 ml/hr providing 1360 kcals and 60 gm protein. Pt with inadequate energy intake from PN support aeb 71% to 84% of est caloric needs. Protein intake from PN support is inadequate aeb 74% to 92% protein needs. Est Energy needs: 6203-1899 kcals (20-23 kcal/kgBW), Est Protein needs: 65-81 gms/day (0.8-1.0 gm/kgBW). Will continue to monitor and reassess prn. LABS: POC GLU 110 H, Alb 2.3 L rest lab wnl GI: Last BM noted on 01/02 per RN doc BS: 15 mod risk, skin tear. Please refer to wound assessment report for full details. PES: Problem 1) Increased nutrient needs r/t pt currently with no PO intake aeb pt NPO status 2) Altered nutrition related lab values r/t current medical condition aeb hyperglycemia, mod hypoalbuminemia Comments Will continue to closely monitor pertinent labs, PO intake and skin status prn. Will followup in 2-3 days 1) Gradually advance pt to oral diet when medically feasible and as tolerated . 2) advance PN support to meet > 75% of needs. 4) Continue current plan of care
[2020-01-03] MEDS ORDERED: POTASSIUM CHLORIDE 40 MEQ, LIDOCAINE 1% (LOCAL ANESTH.) 4 ML in SODIUM CHL 0.9% 100 ML IV ONE (15:15)
[2020-01-03 16:33] VITALS: BP 148/103
--- NOTE | 2020-01-03 16:45 | NUR ---
SPOKE TO [facility] GUM ROLLING MACHINE TENDER, EVER AND SHE DISCUSSED TRANSFER ACCEPTANCE TO [facility]. AND PLANS TO FAX TRANSFER BACK PAPER WORK TO BE SIGNED BY NURSING TOOL MARKER.
--- NOTE | 2020-01-03 16:55 | NUR ---
TRANSFER BACK FAX RECEIVED FROM [facility] MAINTENANCE PARTS TECHNICIAN MADE AWARE OF SIGNATURE REQUIREMENT.
--- NOTE | 2020-01-03 18:12 | NUR ---
will not be able to infuse 1800 scheduled zosyn. Previous dose is still infusing due to delay administration. Pharmacy made aware.
--- NOTE | 2020-01-03 18:30 | NUR ---
TRANSFER BACK PAPER WORK SIGNED BY CONSULTING GROUP ANALYST AND RE-FAXED TO [facility] (FAX [phone]). [facility] CONTACTED [phone] (OPTION 3) TO CONFIRM FAX WAS RECEIVED. PER JORDI AT [facility], TRANSFER BACK FAX RECEIVED AND ROOM IS STILL PENDING FOR TRANSFER.
--- NOTE | 2020-01-03 19:20 | NUR ---
Opening Shift Note Assumed care of patient, awake and alert. No S/S of distress/SOB. Patient reporting 6/10 pain to abdominal area. Patient made aware Morphine available at 20:21 per MD orders on emar, patient refusing Morphine administration when due, requesting to have Dilaudid when due. Patient aware to call RN if patient changes his mind regarding morphine administration, patient verbalized understanding. NG tube to right nare to LCS suction, as ordered. 150 ml of dark green output at this time, will continue to monitor. Bed in lowest locked position, side rails up x2, call light within reach. Instructed on POC and to call for assist PRN, will continue to monitor for changes Q1hr and PRN.
[2020-01-03] MEDS ORDERED: TPN PER PHARMACY IV NR ×8 (20:00)
--- NOTE | 2020-01-03 21:15 | NUR ---
Vancomycin trough 28.6, will hold ordered 22:00 Vancomycin and continue to monitor.
[2020-01-03 22:00] VITALS: BP 147/105
[2020-01-04] MEDS: InsuLIN REG 1unit/0.01ml Soln (100units/ml) SC SCH ×4 (01:00→17:59)
[2020-01-04] MEDS: PIPERACILLIN-TAZOB 3.375GM 100 ML IV SCH ×4 (01:09→21:30)
[2020-01-04] MEDS: MORPHINE SULF INJ 2 MG/ML SYRINGE 1ML IV PRN (01:33)
[2020-01-04] MEDS: HYDROmorphone HCL 2 MG/ML VL IV PRN ×5 (02:46→21:31)
[2020-01-04] MEDS: ACCU-CHEK COMFORT CURVE STRIP VI SCH ×4 (05:23→17:59)
[2020-01-04 05:27] VITALS: BP 139/89
[2020-01-04 06:06] LABS: Eosinophils # (auto) 0.4 10 ^3/uL (0-0.8); Mean Corpuscular Hgb Conc. 32.4 g/dL (32.0-36.0); Platelet Count (auto) 329 10^3/uL (140-450)
[2020-01-04 06:10] LABS: Basophils # (auto) 0 10 ^3/uL (0-0.2); Basophils % (auto) 0.2 % (0.0-2.0); Eosinophils % (auto) 2.3 % (0.0-7.0); Hematocrit 26.6 % (41.0-53.0); Hemoglobin 8.6 g/dL (13.5-17.5); Lymphocytes # (auto) 1.5 10 ^3/uL (0.4-5.4); Mean Corpuscular Hemoglobin 25.1 pg (28.0-32.0); Mean Corpuscular Volume 77.7 fL (80.0-100.0); Monocytes # (auto) 1.5 10 ^3/uL (0-1.3); Monocytes % (auto) 9.7 % (0.0-12.0); Neutrophils # (auto) 11.9 10 ^3/uL (1.6-8.6); Neutrophils % (auto) 77.8 % (37.0-80.0); Nucleated Red Blood Cells % 0.1 %; Red Blood Cells 3.42 10^6/uL (4.5-5.90); Red Cell Distribution Width 17.9 % (11.8-14.3); White Blood Cell 15.2 10^3/uL (4.4-10.8)
[2020-01-04 06:33] LABS: Potassium 3.3 mmol/L (3.5-5.1)
--- NOTE | 2020-01-04 06:43 | NUR ---
Patient lying in bed, awake and alert. No s/s of distress. Call light within reach. Will endorse care to dayshift RN.
[2020-01-04 06:49] LABS: Albumin 2.2 g/dL (3.4-5.0); BUN/Creatinine Ratio 11.5; Bilirubin, Total 0.6 mg/dL (0.2-1.0); Calcium 7.8 mg/dL (8.5-10.1); Magnesium 2.1 mg/dL (1.6-2.6); Phosphorus 3.8 mg/dL (2.5-4.90); Total Protein 6.6 g/dL (6.4-8.2)
--- NOTE | 2020-01-04 07:35 | NUR ---
Opening Shift Note Assumed care of patient from noc shift rn. Patient is asleep but easily aroused, alert, and oriented X 4. No S/S of distress. 6/10 Pain reported at this time but patient is requesting Dilaudid when it is due. Pt is on RA, NG tube is patent and connected to cont suctioning. IV is intact, patent, and located in left hand, 22G. PICC line R. upper arm is patent and asymptomatic. Right quadrant colostomy present with little amount of feces noted. Urinal at bed side. Bed locked in lowest position, bed rails up x 2, call light within reach. Plan of care discussed, patient encouraged to call for assist PRN. Will continue to monitor for changes Q1hr and PRN.
[2020-01-04 08:00] VITALS: BP 147/88
[2020-01-04 09:00] VITALS: BP 147/88
[2020-01-04] MEDS: VANCOMYCIN 1GM/250ML 250 ML IV SCH (10:00)
[2020-01-04] MEDS ORDERED: POTASSIUM PHOSPHATE 22 MEQ in SODIUM CHL 0.9% 100 ML IV ONE (10:15)
--- NOTE | 2020-01-04 10:23 | NUR ---
vancomycin iv not given. Vanco trough is 28.6
[2020-01-04] MEDS: ENOXAPARIN SOD 80 MG/0.8ML SYRINGE SC SCH ×2 (10:40→21:31)
[2020-01-04] MEDS: SODIUM CHLOR 0.9% PF (SALINE LOCK) 10ML VIAL/SYR IV SCH ×2 (10:40→21:21)
[2020-01-04] MEDS: PANTOPRAZOLE 40 MG/10 ML VIAL INJ IV SCH ×2 (10:40→21:31)
[2020-01-04 13:00] VITALS: BP 162/104
[2020-01-04] MEDS: hydrALAZINE HCL 20 MG/ML VL IV PRN (13:21)
--- NOTE | 2020-01-04 16:06 | NUR ---
RECEIVED A CALL BACK FROM CASE MANAGEMENT NUT PACKER, URIEL, UPDATING HER OF PATIENT'S TRANSFER ACCEPTANCE TO [facility]. BED STILL PENDING AT THIS TIME.
--- NOTE | 2020-01-04 17:08 | NUR ---
Patient's vancomycin trough done on 01/03/2020 is 28.6. I spoke to pharmacist regarding 1800 scheduled vancomycin IV dose. Per pharmacy it is ok to give the one time dose, and vancomycin trough to be drawn in the AM.
[2020-01-04 17:45] VITALS: BP 142/99
[2020-01-04] MEDS ORDERED: VANCOMYCIN 1GM/250ML 250 ML IV ONE (18:00)
--- NOTE | 2020-01-04 18:00 | NUR ---
TEMPERATURE PATIENT IS RUNNING 101.0 TEMP. COOLING MEASURES WITH ICE PACKS INITIATED. WILL CONTINUE TO MONITOR FOR CHANGES.
--- NOTE | 2020-01-04 18:40 | NUR ---
NG TUBE DRAINAGE: 1000MLS OF BILIOUS DRAINAGE EMPTIED.
--- NOTE | 2020-01-04 19:25 | NUR ---
Opening Shift Note Assumed care of patient, awake and alert. No S/S of distress/SOB. Patient reporting 6/10 pain to abdominal area. Patient made aware Morphine available PRN for pain, patient refusing Morphine administration at this time, requesting to have Dilaudid when due. Patient aware to call RN if patient changes his mind regarding morphine administration, patient verbalized understanding. NG tube to right nare to LCS suction, as ordered. Bed in lowest locked position, side rails up x2, call light within reach. Instructed on POC and to call for assist PRN, will continue to monitor for changes Q1hr and PRN.
--- NOTE | 2020-01-04 19:27 | NUR ---
Temperature 99.8 degrees orally, cooling measures remain in place, will continue to monitor.
[2020-01-04] MEDS ORDERED: TPN PER PHARMACY IV NR ×8 (20:00)
[2020-01-04 22:00] VITALS: BP 144/103
[2020-01-05] MEDS: ACCU-CHEK COMFORT CURVE STRIP VI SCH ×4 (00:01→17:49)
[2020-01-05] MEDS: HYDROmorphone HCL 2 MG/ML VL IV PRN ×5 (02:49→20:15)
[2020-01-05] MEDS: PIPERACILLIN-TAZOB 3.375GM 100 ML IV SCH ×4 (02:50→21:20)
[2020-01-05] MEDS: MORPHINE SULF INJ 2 MG/ML SYRINGE 1ML IV PRN ×4 (04:36→17:13)
[2020-01-05 06:00] VITALS: BP 154/100
[2020-01-05] MEDS: InsuLIN REG 1unit/0.01ml Soln (100units/ml) SC SCH ×4 (06:00→17:50)
[2020-01-05 06:29] LABS: Eosinophils # (auto) 0.3 10 ^3/uL (0-0.8); Hemoglobin 9.1 g/dL (13.5-17.5); Mean Corpuscular Volume 77.5 fL (80.0-100.0)
[2020-01-05 06:33] LABS: Basophils # (auto) 0 10 ^3/uL (0-0.2); Basophils % (auto) 0.2 % (0.0-2.0); Eosinophils % (auto) 1.6 % (0.0-7.0); Hematocrit 28.6 % (41.0-53.0); Lymphocytes # (auto) 1.1 10 ^3/uL (0.4-5.4); Lymphocytes % (auto) 6.1 % (10.0-50.0); Mean Corpuscular Hemoglobin 24.7 pg (28.0-32.0); Mean Corpuscular Hgb Conc. 31.9 g/dL (32.0-36.0); Monocytes # (auto) 1.7 10 ^3/uL (0-1.3); Monocytes % (auto) 9.1 % (0.0-12.0); Neutrophils # (auto) 15.3 10 ^3/uL (1.6-8.6); Platelet Count (auto) 363 10^3/uL (140-450); Red Cell Distribution Width 17.9 % (11.8-14.3); White Blood Cell 18.5 10^3/uL (4.4-10.8)
[2020-01-05 06:49] LABS: Albumin 2.3 g/dL (3.4-5.0); Calcium 8.4 mg/dL (8.5-10.1); Magnesium 1.9 mg/dL (1.6-2.6); Potassium 3.4 mmol/L (3.5-5.1)
[2020-01-05 06:52] LABS: BUN/Creatinine Ratio 10.3; Bilirubin, Total 0.8 mg/dL (0.2-1.0); Phosphorus 4.1 mg/dL (2.5-4.90); Total Protein 7.1 g/dL (6.4-8.2)
--- NOTE | 2020-01-05 07:02 | NUR ---
Patient lying in bed, awake and alert. No s/s of distress. Call light within reach. Will endorse care to dayshift RN.
[2020-01-05] MEDS: PANTOPRAZOLE 40 MG/10 ML VIAL INJ IV SCH ×2 (09:43→21:20)
[2020-01-05] MEDS: SODIUM CHLOR 0.9% PF (SALINE LOCK) 10ML VIAL/SYR IV SCH ×2 (09:43→21:20)
[2020-01-05] MEDS: ENOXAPARIN SOD 80 MG/0.8ML SYRINGE SC SCH ×2 (09:43→21:20)
[2020-01-05 09:50] VITALS: BP 142/95
--- NOTE | 2020-01-05 10:39 | NUR ---
Call from [facility] transfer center Received call. They said they were waiting for financial/insurance clearance, but that he has been medically cleared. No supportive employment case manager here for them to talk to today (due to holiday).
[2020-01-05] MEDS ORDERED: POTASSIUM CHL 20MEQ/100ML 100 ML IV ONE (10:45)
[2020-01-05 14:45] VITALS: BP 142/97
[2020-01-05] MEDS: fentaNYL 25MCG/HR 25 MCG/HR PAT TD SCH (16:00)
[2020-01-05 16:48] VITALS: BP 133/92
[2020-01-05] MEDS ORDERED: VANCOMYCIN 500 MG in D5W 5% 100 ML IV ONE (18:00)
--- NOTE | 2020-01-05 19:30 | NUR ---
Opening Shift Note Assumed care of patient, awake and alert x4. No S/S of distress/SOB or pain. NG tube to right nare connected to low continuos suction, dark green drainage in suction canister noted. Colostomy bag to RLQ. Instructed on POC and to call for assist PRN. Call light is within reach, side rails up x2, fall precautions are in place, will continue to monitor for changes Q1hr and PRN.
[2020-01-05] MEDS ORDERED: TPN PER PHARMACY IV NR ×8 (20:00)
--- NOTE | 2020-01-05 20:15 | NUR ---
Complaints of pain to the abdomen 10/0-10, Dilaudid administered as ordered, will reassess.
--- NOTE | 2020-01-05 20:45 | NUR ---
Patient states pain level is now a 4/0-10, he feels good.
--- NOTE | 2020-01-05 20:53 | NUR ---
IV removed for infiltration IV DC'd with clean sterile technique from the left hand, catheter fully intact. Pressure dressing applied to site. Patient tolerated well.
[2020-01-05 22:00] VITALS: BP 143/96
[2020-01-06] VITALS (7 sets, daily range): BP systolic 137–156; BP diastolic 94–105
[2020-01-06] MEDS: ACCU-CHEK COMFORT CURVE STRIP VI SCH ×4 (00:08→18:20)
[2020-01-06] MEDS: HYDROmorphone HCL 2 MG/ML VL IV PRN ×6 (00:15→21:26)
--- NOTE | 2020-01-06 00:15 | NUR ---
Complaints of pain to the abdomen 10/0-10, dilaudid administered as ordered, will reassess.
--- NOTE | 2020-01-06 00:45 | NUR ---
Patient states pain is now 6/0-10 which is tolerable for him, will continue to monitor.
[2020-01-06] MEDS: PIPERACILLIN-TAZOB 3.375GM 100 ML IV SCH ×4 (03:05→21:25)
[2020-01-06] MEDS: MORPHINE SULF INJ 2 MG/ML SYRINGE 1ML IV PRN ×2 (03:05→08:30)
--- NOTE | 2020-01-06 03:05 | NUR ---
Complaints of pain to the abdomen 10/0-10, morphine administered as ordered, will reassess.
--- NOTE | 2020-01-06 03:50 | NUR ---
No S/S of pain noted, patient is resting in bed asleep, eyes are closed and breathing is unlabored, will continue to monitor.
--- NOTE | 2020-01-06 05:34 | NUR ---
Complaints of pain 10/0-10 to the abdomen. Dilaudid administered as ordered, will reassess.
[2020-01-06] MEDS: InsuLIN REG 1unit/0.01ml Soln (100units/ml) SC SCH ×4 (05:45→18:22)
[2020-01-06] MEDS: hydrALAZINE HCL 20 MG/ML VL IV PRN (05:58)
--- NOTE | 2020-01-06 05:59 | NUR ---
Elevated BP, prn Hydralazine given as ordered for BP 154/100, will reassess.
--- NOTE | 2020-01-06 05:59 | NUR ---
No complaints of pain, patient is visibly falling asleep, he states he is good.
--- NOTE | 2020-01-06 06:43 | NUR ---
BP Recheck BP is now 148/94, patient is in and out of sleep, no complaints of pain. Call light is within reach.
--- NOTE | 2020-01-06 06:44 | NUR ---
Closing Note: NG tube output: 675 mL of dark green fluid. NG tube remains connected to low continuous suction, aspiration precautions are in place, HOB >30, TPN is infusing to MAHNAZ PICC line at 69 mls/hr. No S/S of pain, SOB, or distress, call light is within reach.
--- NOTE | 2020-01-06 07:22 | NUR ---
Opening Shift Note Assumed care of patient from noc shift rn. Patient is awake, alert, and oriented X 4. No S/S of distress. Facial grimacing to 10/10 Pain at this time, will give morphine PRN. Pt is on RA, NG tube is patent and connected to low continuous suctioning. PICC line on right upper arm is patent and asymptomatic. Right quadrant colostomy present with little amount of feces noted. Urinal at bed side. Bed locked in lowest position, bed rails up x 2, call light within reach. Plan of care discussed, patient encouraged to call for assist PRN. Will continue to monitor for changes Q1hr and PRN.
--- NOTE | 2020-01-06 10:06 | NUR ---
Nutrition Followup Notes WT : 75.4 kg Pt it awaiting transfer to [facility]. Pt is still NPO d/t persistent N/V, abd pain. Pt currently on PN support @ 69 ml/hr providing 1710 kcals and 80 gm protein 1390 NCP. Pt with adequate energy intake from PN support aeb 100% of est caloric needs. Protein intake from PN support is adequate aeb 100% protein needs. Est Energy needs: 4895-5713 kcals (20-23 kcal/kgBW), Est Protein needs: 65-81 gms/day (0.8-1.0 gm/kgBW). Will continue to monitor and reassess prn. LABS: Creat 1.45H, Alb 2.3L, Glu 137H, labs 01/05 pending GI: Gastric drainage 900 mL 01/04 per RN doc BS: 15 mod risk, skin tear. Please refer to wound assessment report for full details. PES: Problem 1) Increased nutrient needs r/t pt currently with no PO intake aeb pt NPO status 2) Altered nutrition related lab values r/t current medical condition aeb hyperglycemia, mod hypoalbuminemia Comments Will continue to closely monitor pertinent labs, PO intake and skin status prn. Will followup in 2-3 days 1) Gradually advance pt to oral diet when medically feasible and as tolerated . 2) Continue PN support to meet > 75% of needs. 3) Continue current plan of care
[2020-01-06] MEDS: PANTOPRAZOLE 40 MG/10 ML VIAL INJ IV SCH ×2 (10:25→21:25)
[2020-01-06] MEDS: SODIUM CHLOR 0.9% PF (SALINE LOCK) 10ML VIAL/SYR IV SCH ×2 (10:25→21:25)
[2020-01-06] MEDS: ENOXAPARIN SOD 80 MG/0.8ML SYRINGE SC SCH ×2 (10:25→21:25)
--- NOTE | 2020-01-06 10:50 | NUR ---
Received a call from Liz, transfer circulation sales representative with [facility], informing that they are having issue with patient's insurance and not contracted. Will inform case management.
--- NOTE | 2020-01-06 11:08 | NUR ---
Case management, Jennifer Meng called and relayed message from Liz with [facility] regarding patient's transfer status.
[2020-01-06 11:33] LABS: Basophils # (auto) 0.1 10 ^3/uL (0-0.2); Eosinophils # (auto) 0.2 10 ^3/uL (0-0.8); Monocytes % (auto) 9.5 % (0.0-12.0)
[2020-01-06 11:36] LABS: Basophils % (auto) 0.4 % (0.0-2.0); Eosinophils % (auto) 1.2 % (0.0-7.0); Hematocrit 30.3 % (41.0-53.0); Hemoglobin 9.7 g/dL (13.5-17.5); Lymphocytes # (auto) 1.2 10 ^3/uL (0.4-5.4); Lymphocytes % (auto) 6.7 % (10.0-50.0); Mean Corpuscular Hemoglobin 24.7 pg (28.0-32.0); Mean Corpuscular Hgb Conc. 31.9 g/dL (32.0-36.0); Mean Corpuscular Volume 77.6 fL (80.0-100.0); Monocytes # (auto) 1.7 10 ^3/uL (0-1.3); Neutrophils # (auto) 14.6 10 ^3/uL (1.6-8.6); Neutrophils % (auto) 82.2 % (37.0-80.0); Nucleated Red Blood Cells % 0.1 %; Platelet Count (auto) 380 10^3/uL (140-450); Red Blood Cells 3.91 10^6/uL (4.5-5.90); White Blood Cell 17.8 10^3/uL (4.4-10.8)
--- NOTE | 2020-01-06 12:04 | NUR ---
DR. VALENZUELA AT BEDSIDE. DISCUSSED PLAN OF CARE WITH PATIENT. NEW ORDER TO DISCONTINUE MORPHINE PRN PLACED NEW ORDER FOR DILAUDID Q3HR PRN PLACED.
[2020-01-06 13:40] LABS: Albumin 2.2 g/dL (3.4-5.0); Calcium 8.6 mg/dL (8.5-10.1); Magnesium 2.4 mg/dL (1.6-2.6); Potassium 3.7 mmol/L (3.5-5.1)
[2020-01-06 13:43] LABS: BUN/Creatinine Ratio 10.9; Bilirubin, Total 0.8 mg/dL (0.2-1.0); Phosphorus 3.8 mg/dL (2.5-4.90); Total Protein 7.3 g/dL (6.4-8.2)
[2020-01-06] MEDS ORDERED: LINEZOLID 600MG/300ML 300 ML IV SCH (15:00)
[2020-01-06] MEDS: LINEZOLID 600MG/300ML 300 ML IV SCH (18:36)
--- NOTE | 2020-01-06 18:50 | NUR ---
NG TUBE DRAINAGE OUTPUT: 800MLS OF DARK GREEN DRAINAGE EMPTIED FOR THE DAY SHIFT.
--- NOTE | 2020-01-06 19:15 | NUR ---
OPENING NOTE- NOC SHIFT ASSUMED PATIENT CARE. PATIENT IS ALERT AND ORIENTED X4. NO S/SX OF DISTRESS OR SOB. PATIENT HAS PATENT NG TUBE CONNECTED TO CONTINUOUS SUCTION. PATIENT HAS PICC LINE TO RIGHT UPPER ARM; PATENT AND ASYMPTOMATIC. PATIENT HAS RIGHT QUADRANT COLOSTOMY; COLOSTOMY BAG IS SECURED PROPERLY, BAG IS EMPTY AND CLEAN. URINAL IS READILY AT BEDSIDE; PATIENT USES URINAL INDEPENDENTLY. PATIENT IS SITTING UP IN BED, BED IS LOCKED AT LOWEST POSITION BED RAILS UP X2 AND HEAD OF BED IS UP >45 DEGREES. BEDSIDE TABLE WITHIN REACH, PERSONAL BELONGINGS WITHIN REACH. DISCUSSED POC WITH PATIENT AND INSTRUCTED PATIENT TO CALL PRN; PATIENT VERBALIZED UNDERSTANDING WILL CONTINUE TO MONITOR Q1H AND PRN.
[2020-01-06] MEDS ORDERED: TPN PER PHARMACY IV NR ×6 (20:00)
--- NOTE | 2020-01-06 20:48 | NUR ---
UPDATED MOTHER WITH TRANSFER STATUS AFTER CONFIRMING ACCOUNT PASSWORD.
[2020-01-07] VITALS (7 sets, daily range): BP systolic 133–160; BP diastolic 89–111
[2020-01-07] MEDS: ACCU-CHEK COMFORT CURVE STRIP VI SCH ×4 (00:30→18:36)
[2020-01-07] MEDS: HYDROmorphone HCL 2 MG/ML VL IV PRN ×8 (00:31→22:47)
[2020-01-07] MEDS: PIPERACILLIN-TAZOB 3.375GM 100 ML IV SCH ×2 (03:23→09:11)
[2020-01-07 06:11] LABS: Eosinophils # (auto) 0.2 10 ^3/uL (0-0.8); Hemoglobin 10.2 g/dL (13.5-17.5); Lymphocytes # (auto) 1.2 10 ^3/uL (0.4-5.4); Monocytes # (auto) 1.6 10 ^3/uL (0-1.3); Monocytes % (auto) 8.1 % (0.0-12.0)
[2020-01-07 06:13] LABS: Basophils # (auto) 0.1 10 ^3/uL (0-0.2); Basophils % (auto) 0.4 % (0.0-2.0); Hematocrit 31.6 % (41.0-53.0); Lymphocytes % (auto) 6.2 % (10.0-50.0); Mean Corpuscular Hemoglobin 25.3 pg (28.0-32.0); Mean Corpuscular Hgb Conc. 32.3 g/dL (32.0-36.0); Mean Corpuscular Volume 78.3 fL (80.0-100.0); Neutrophils % (auto) 84.3 % (37.0-80.0); Platelet Count (auto) 439 10^3/uL (140-450); Red Blood Cells 4.04 10^6/uL (4.5-5.90); Red Cell Distribution Width 17.8 % (11.8-14.3); White Blood Cell 20.1 10^3/uL (4.4-10.8)
[2020-01-07] MEDS: LINEZOLID 600MG/300ML 300 ML IV SCH ×2 (06:15→18:38)
[2020-01-07] MEDS: InsuLIN REG 1unit/0.01ml Soln (100units/ml) SC SCH ×4 (06:17→18:00)
[2020-01-07 06:30] LABS: Albumin 2.5 g/dL (3.4-5.0); BUN/Creatinine Ratio 10.3; Calcium 8.9 mg/dL (8.5-10.1); Magnesium 2.3 mg/dL (1.6-2.6); Phosphorus 3.9 mg/dL (2.5-4.90); Potassium 3.6 mmol/L (3.5-5.1)
[2020-01-07 06:32] LABS: Bilirubin, Total 0.9 mg/dL (0.2-1.0); Total Protein 8.3 g/dL (6.4-8.2)
--- NOTE | 2020-01-07 07:35 | NUR ---
Opening Shift Note Assumed care of patient from noc shift rn. Patient is asleep but easily aroused by voice. Alert, and oriented X 4. Facial grimacing to Pain at this time, using position change and relaxation technique to relief pain until next PRN dilaudid is due. Pt is on RA, NG tube is patent and connected to low continuous suctioning, bilious green drainage noted. PICC line on right upper arm is patent and asymptomatic. Right quadrant colostomy is clean, no feces noted. Urinal at bed side. Bed is locked and in lowest position, bed rails up x 2, call light within reach. Plan of care discussed, patient encouraged to call for assist PRN. Will continue to monitor for changes Q1hr and PRN.
--- NOTE | 2020-01-07 08:56 | NUR ---
I spoke with [facility] independent insurance adjuster "Zack" who stated she has been in contact with [facility] contract office and she would probably have an answer regarding patient's pending transfer later today. I also sent order requesting transfer to higher level of care to [facility] transfer center along with, clinical notes, labs, face sheet and waiting response from transfer Center.
[2020-01-07] MEDS: PROMETHAZINE HCL 25 MG/ML 1ML IV PRN ×2 (09:50→20:32)
[2020-01-07] MEDS: PANTOPRAZOLE 40 MG/10 ML VIAL INJ IV SCH ×2 (09:51→21:36)
[2020-01-07] MEDS: SODIUM CHLOR 0.9% PF (SALINE LOCK) 10ML VIAL/SYR IV SCH ×2 (09:51→21:36)
[2020-01-07] MEDS: ENOXAPARIN SOD 80 MG/0.8ML SYRINGE SC SCH ×2 (09:52→21:36)
[2020-01-07] MEDS: hydrALAZINE HCL 20 MG/ML VL IV PRN ×2 (12:05→21:36)
[2020-01-07] MEDS ORDERED: cloNIDine 0.2 mg/24hr 7DAY PATCH TD SCH (14:15)
[2020-01-07] MEDS: MEROPENEM 1GM IVPB 100 ML IV SCH ×2 (14:53→21:35)
--- NOTE | 2020-01-07 15:14 | NUR ---
Called and informed [employer] case management that social service liaison, Selina Wilson [phone] from [facility] called to talk to her regarding patient obtaining medical insurance. Jennifer acknowledged message and will follow up with the social service liaison
--- NOTE | 2020-01-07 15:52 | NUR ---
I contacted [facility] case management director Zack regarding update on insurance clearance to transfer this patient to [facility] for higher level of care. I informed 'Mo' that the patient's condition was starting to decline and we really would like to get the patient transferred as soon as possible. Mo stated that the documentation for insurance clearance was sent for approval late yesterday and should be signed by tomorrow.
[2020-01-07] MEDS ORDERED: TPN PER PHARMACY IV NR ×9 (20:00)
--- NOTE | 2020-01-07 20:00 | NUR ---
OPENING NOTE RECEIVED REPORT FROM MAHNAZ CASH. ASSUMING ROLE OF CARE OF PATIENT AT THIS TIME. CANISTER FOR NG DRAINAGE CHANGED. APPROXIMATELY 600 REMOVED PRIOR TO CHANGE. NG TUBE IS CLEAR, PATENT, AND INTACT. PATIENT COMPLAINING OF PAIN AT 10/10 FROM ABDOMEN. PATIENT WILL BE MEDICATED PER PAIN PROTOCOL WHEN AVAILABLE. PATIENT SHOWING NO FURTHER SIGNS OF DISTRESS. PATIENT EDUCATED ON PLAN OF CARE FOR THE NIGHT AND PATIENT VERBALIZED UNDERSTANDING. BED LOWERED, CALL LIGHT WITHIN REACH, COLOSTOMY CLEAN DRY AND INTACT. WILL CONTINUE TO MONITOR.
[2020-01-08] MEDS: ACCU-CHEK COMFORT CURVE STRIP VI SCH ×4 (00:06→17:49)
[2020-01-08] MEDS: InsuLIN REG 1unit/0.01ml Soln (100units/ml) SC SCH ×4 (00:07→17:49)
--- NOTE | 2020-01-08 00:09 | NUR ---
HOSPITALIST PAGED PATIENT HAS A NEW COUGH PER PATIENT. PATIENT IS HAVING A PRODUCTIVE COUGH. PATIENT IS NPO WITH AN NG TUBE IN THE RIGHT NARE SET TO LCS. PATIENT'S TEMP IS 99.5. HR IS IN THE 130S. WILL AWAIT CALL BACK OR ORDERS.
[2020-01-08] MEDS ORDERED: guaiFENesin-DM 100/10mg/5ml SYR NG PRN (00:45)
[2020-01-08] MEDS: HYDROmorphone HCL 2 MG/ML VL IV PRN ×7 (01:47→21:11)
[2020-01-08 05:00] VITALS: BP 140/104
--- NOTE | 2020-01-08 05:08 | NUR ---
PICC LINE DRESSING CHANGED PER POLICY ORDERS.
[2020-01-08] MEDS: MEROPENEM 1GM IVPB 100 ML IV SCH ×3 (05:10→23:15)
[2020-01-08 06:45] LABS: Basophils # (auto) 0.1 10 ^3/uL (0-0.2); Monocytes # (auto) 1.7 10 ^3/uL (0-1.3); Monocytes % (auto) 7.3 % (0.0-12.0); Platelet Count (auto) 505 10^3/uL (140-450)
[2020-01-08 06:48] LABS: Basophils % (auto) 0.3 % (0.0-2.0); Eosinophils # (auto) 0.1 10 ^3/uL (0-0.8); Eosinophils % (auto) 0.6 % (0.0-7.0); Hematocrit 28.4 % (41.0-53.0); Hemoglobin 9.2 g/dL (13.5-17.5); Lymphocytes # (auto) 1.2 10 ^3/uL (0.4-5.4); Mean Corpuscular Hemoglobin 24.9 pg (28.0-32.0); Mean Corpuscular Hgb Conc. 32.3 g/dL (32.0-36.0); Mean Corpuscular Volume 77.2 fL (80.0-100.0); Neutrophils # (auto) 20.4 10 ^3/uL (1.6-8.6); Neutrophils % (auto) 86.8 % (37.0-80.0); Red Blood Cells 3.68 10^6/uL (4.5-5.90); Red Cell Distribution Width 18.2 % (11.8-14.3); White Blood Cell 23.4 10^3/uL (4.4-10.8)
[2020-01-08 07:08] LABS: Albumin 2.3 g/dL (3.4-5.0); Calcium 8.8 mg/dL (8.5-10.1); Magnesium 1.8 mg/dL (1.6-2.6); Potassium 3.6 mmol/L (3.5-5.1)
[2020-01-08 07:14] LABS: BUN/Creatinine Ratio 11.5; Bilirubin, Total 0.6 mg/dL (0.2-1.0); Phosphorus 3.6 mg/dL (2.5-4.90); Total Protein 7.6 g/dL (6.4-8.2)
[2020-01-08] MEDS: LINEZOLID 600MG/300ML 300 ML IV SCH ×2 (07:32→18:58)
[2020-01-08 08:00] VITALS: BP 154/107
[2020-01-08] MEDS: ENOXAPARIN SOD 80 MG/0.8ML SYRINGE SC SCH ×2 (10:19→23:16)
[2020-01-08] MEDS: PANTOPRAZOLE 40 MG/10 ML VIAL INJ IV SCH ×2 (10:19→23:16)
--- NOTE | 2020-01-08 10:20 | NUR ---
Ashley BAJWA AT BEDSIDE. PER Ashley [place] TO GIVE PATIENT ICE CHIPS.
[2020-01-08] MEDS: SODIUM CHLOR 0.9% PF (SALINE LOCK) 10ML VIAL/SYR IV SCH ×2 (10:26→22:00)
--- NOTE | 2020-01-08 11:43 | NUR ---
Nutrition Followup Notes WT : 74.3 kg Pt is still awaiting transfer to [facility] for surgical oncology evaluation. Pt is still NPO d/t persistent N/V, abd pain. Pt currently on PN support @ 70 ml/hr providing 1780 kcals and 80 gm protein 1460 NCP. Pt with adequate energy intake from PN support aeb 96-110% of est caloric needs. Protein intake from PN support is adequate aeb 99-123% protein needs. Est Energy needs: 1451-8390 kcals (20-23 kcal/kgBW), Est Protein needs: 65-81 gms/day (0.8-1.0 gm/kgBW). Will continue to monitor and reassess prn. LABS: Creat 1.39H, AST 85H, ALT 62H, Alk Phos 131H, Glu 143H, Alb 2.3L, GI: Gastric drainage 900 mL 01/04 per RN doc BS: 15 mod risk, skin tear. Please refer to wound assessment report for full details. PES: Problem 1) Increased nutrient needs r/t pt currently with no PO intake aeb pt NPO status 2) Altered nutrition related lab values r/t current medical condition aeb hyperglycemia, mod hypoalbuminemia Comments Will continue to closely monitor pertinent labs, PO intake and skin status prn. Will followup in 2-3 days 1) Gradually advance pt to oral diet when medically feasible and as tolerated . 2) Continue PN support to meet > 75% of needs. 3) Continue current plan of care
[2020-01-08 12:00] VITALS: BP 147/98
[2020-01-08] MEDS ORDERED: MAGNESIUM SULFATE 1GM/100ML 100 ML IV ONE (12:00)
[2020-01-08] MEDS: MICAFUNGIN SODIUM 100 MG in SODIUM CHL 0.9% 100 ML IV SCH (12:29)
--- NOTE | 2020-01-08 12:30 | NUR ---
PATIENT REMOVED OWN NG TUBE. NO S/S OF ASPIRATION NOTED AT THIS TIME. INFORMED Ashley BAJWA INSTRUCTED TO PLACE NEW NG TUBE. WILL FOLLOW THROUGH
--- NOTE | 2020-01-08 13:45 | NUR ---
16 PORTUGUESE NG TUBE INSERTED TO R NARE. MEASURED TO 63CM. PATIENT TOLERATED WELL. SECURED TO NOSE.
--- NOTE | 2020-01-08 14:54 | NUR ---
01/08/20 2606, I was contacted by [facility] 'Zack' who stated that the insurance clearance (PRIYA) was approved for [facility] and a copy had been seen to [facility] contract office. Zack stated that she would also contact the transfer center at [facility] to inform them of the approval and get an update on availability of bed for this patient.
--- NOTE | 2020-01-08 16:23 | NUR ---
Contacted [facility] placed them on Will Call pending transfer to [facility].
[2020-01-08 16:30] VITALS: BP 147/109
[2020-01-08] MEDS: fentaNYL 25MCG/HR 25 MCG/HR PAT TD SCH (16:56)
--- NOTE | 2020-01-08 19:30 | NUR ---
Opening Shift Note Assumed care of patient. Patient is awake and alert. No S/S of distress/SOB with Acosta catheter intact, patent and draining to gravity. Instructed on POC and to call for assist PRN, will continue to monitor for changes Q1hr and PRN. Bed locked in lowest position and bed rails up x2. Call light within reach.
[2020-01-08] MEDS ORDERED: TPN PER PHARMACY IV NR ×9 (20:00)
[2020-01-08 21:42] VITALS: BP 160/110
[2020-01-08] MEDS: hydrALAZINE HCL 20 MG/ML VL IV PRN (23:17)
[2020-01-09] MEDS: HYDROmorphone HCL 2 MG/ML VL IV PRN ×5 (01:01→20:54)
[2020-01-09] MEDS: ACCU-CHEK COMFORT CURVE STRIP VI SCH ×4 (01:02→17:52)
--- NOTE | 2020-01-09 01:05 | NUR ---
Salome from [facility] called and stated that they still do not have a bed available for him just yet
--- NOTE | 2020-01-09 01:08 | NUR ---
Discharge Summary faxed as requested from Salome from [facility] transfer center. Faxed to
[2020-01-09] MEDS: PROMETHAZINE HCL 25 MG/ML 1ML IV PRN ×2 (04:23→17:54)
[2020-01-09 05:11] VITALS: BP 153/108
[2020-01-09] MEDS: InsuLIN REG 1unit/0.01ml Soln (100units/ml) SC SCH ×4 (06:00→17:53)
[2020-01-09] MEDS: MEROPENEM 1GM IVPB 100 ML IV SCH ×3 (06:41→20:54)
[2020-01-09] MEDS: hydrALAZINE HCL 20 MG/ML VL IV PRN (06:45)
--- NOTE | 2020-01-09 07:00 | NUR ---
NG suction drained 250ml for entire shift
[2020-01-09 08:00] VITALS: BP 140/98
[2020-01-09] MEDS: PANTOPRAZOLE 40 MG/10 ML VIAL INJ IV SCH ×2 (08:58→20:54)
[2020-01-09] MEDS: ENOXAPARIN SOD 80 MG/0.8ML SYRINGE SC SCH ×2 (08:58→20:54)
[2020-01-09] MEDS: LINEZOLID 600MG/300ML 300 ML IV SCH ×2 (08:58→17:52)
[2020-01-09] MEDS: SODIUM CHLOR 0.9% PF (SALINE LOCK) 10ML VIAL/SYR IV SCH ×2 (08:58→20:54)
--- NOTE | 2020-01-09 09:26 | NUR ---
Dr. Pratt at [facility] to assess patient and discuss plan of care
[2020-01-09 10:06] LABS: Hemoglobin 9.3 g/dL (13.5-17.5); Mean Corpuscular Hemoglobin 24.6 pg (28.0-32.0); Mean Corpuscular Volume 77.8 fL (80.0-100.0); Red Blood Cells 3.77 10^6/uL (4.5-5.90)
[2020-01-09 10:08] LABS: Hematocrit 29.4 % (41.0-53.0); Mean Corpuscular Hgb Conc. 31.6 g/dL (32.0-36.0); Platelet Count (auto) 540 10^3/uL (140-450); White Blood Cell 27.3 10^3/uL (4.4-10.8)
[2020-01-09 10:13] LABS: Band Neutrophils % (manual) 0; Basophils % (manual) 0 (0.0-2.0); Blast Cells 0; Eosinophils % (manual) 0 (0-7); Metamyelocytes % 0; Myelocytes % 0; Promyelocytes % 0; Reactive Lymphocytes 0
[2020-01-09 10:49] LABS: Alkaline Phosphatase 164 U/L (45-117); Anion Gap 7 (5-15); BUN/Creatinine Ratio 12.2; Blood Urea Nitrogen 15 mg/dL (7-18); Carbon Dioxide 25 mmol/L (21-32); Chloride 103 mmol/L (98-107); GFR African American 81 mL/min; GFR Non-African American 67 mL/min; Glucose 164 mg/dL (74-106); Potassium 3.9 mmol/L (3.5-5.1); Sodium 135 mmol/L (136-145)
[2020-01-09 10:50] LABS: Alanine Aminotransferase 75 U/L (16-61); Albumin 2.2 g/dL (3.4-5.0); Aspartate Aminotransferase 87 U/L (15-37); Bilirubin, Total 0.5 mg/dL (0.2-1.0); Calcium 8.7 mg/dL (8.5-10.1); Magnesium 2.7 mg/dL (1.6-2.6); Phosphorus 3.2 mg/dL (2.5-4.90); Total Protein 7.7 g/dL (6.4-8.2)
--- NOTE | 2020-01-09 11:24 | NUR ---
Spoke to correctional case records supervisor regarding updated discharge summary needed to submit to [facility]. I notified her I spoke with Dr. Pratt today and notified him of the needed updated discharge summary. She stated she will still call and ask him for one.
[2020-01-09] MEDS: MICAFUNGIN SODIUM 100 MG in SODIUM CHL 0.9% 100 ML IV SCH (11:44)
[2020-01-09 11:47] LABS: Lymphocytes % (manual) 4 (10.0-50.0); Monocytes % (manual) 1 (0-12)
[2020-01-09 12:00] VITALS: BP 138/99
--- NOTE | 2020-01-09 13:38 | NUR ---
Faxed to [facility] inpatient transfer center both today's progress note and current discharge summary dated 01/09/20
--- NOTE | 2020-01-09 14:22 | NUR ---
Confirmed with [facility] patient placement center faxed copies of both progress notes and current discharge summary. Accepting physician is Dr Hiro Lizama and patient will be going to [facility], awaiting available bed.
--- NOTE | 2020-01-09 16:16 | NUR ---
Contacted [facility] to provide update information on pending transfer of this patient. Informed [facility] that patient will be going to [facility] located at [address] [place] [address], the accepting physician is Dr. Hiro Lizama and transfer is pending bed availability.
[2020-01-09 17:00] VITALS: BP 148/105
--- NOTE | 2020-01-09 18:30 | NUR ---
Patient had 200 ml of green drainage from NG tube.
[2020-01-09] MEDS ORDERED: TPN PER PHARMACY IV NR ×8 (20:00)
--- NOTE | 2020-01-09 21:00 | NUR ---
[facility] called to ask for an update on patient status and vitals
--- NOTE | 2020-01-09 22:00 | NUR ---
[facility] called again to let me know that they will be needing the negative report for patients COVID-19 test
[2020-01-09 23:00] VITALS: BP 134/107
--- NOTE | 2020-01-10 00:24 | NUR ---
Spoke with Salome from [facility] transfer center once more to let me know that they will possibly have a bed ready tomorrow for the patient. She also confirmed that she received the negative COVID report from us and stated that they still need an updated discharge summary.
[2020-01-10] MEDS: HYDROmorphone HCL 2 MG/ML VL IV PRN ×7 (00:51→20:47)
[2020-01-10] MEDS: ACCU-CHEK COMFORT CURVE STRIP VI SCH ×4 (01:04→17:20)
[2020-01-10] MEDS: PROMETHAZINE HCL 25 MG/ML 1ML IV PRN ×2 (03:26→21:43)
[2020-01-10 05:19] VITALS: BP 162/110
[2020-01-10] MEDS: InsuLIN REG 1unit/0.01ml Soln (100units/ml) SC SCH ×4 (06:00→17:20)
[2020-01-10] MEDS: MEROPENEM 1GM IVPB 100 ML IV SCH ×3 (06:36→21:42)
--- NOTE | 2020-01-10 07:30 | NUR ---
Opening Shift Note Assumed care of patient, awake and alert. No S/S of distress/SOB or pain. Instructed on POC and to call for assist PRN, will continue to monitor for changes Q1hr and PRN.
[2020-01-10] MEDS: hydrALAZINE HCL 20 MG/ML VL IV PRN ×2 (07:31→21:43)
--- NOTE | 2020-01-10 07:35 | NUR ---
Patient has NG right nare. NG to LIS, drainage green. Patient has a colostomy to RLQ, small amount of liquid stool noted.
[2020-01-10] MEDS: LINEZOLID 600MG/300ML 300 ML IV SCH ×2 (08:13→17:44)
[2020-01-10 09:00] VITALS: BP 133/97
[2020-01-10] MEDS: SODIUM CHLOR 0.9% PF (SALINE LOCK) 10ML VIAL/SYR IV SCH ×2 (10:00→21:42)
[2020-01-10] MEDS: ENOXAPARIN SOD 80 MG/0.8ML SYRINGE SC SCH ×2 (10:27→21:43)
[2020-01-10] MEDS: PANTOPRAZOLE 40 MG/10 ML VIAL INJ IV SCH ×2 (10:27→21:42)
[2020-01-10] MEDS: MICAFUNGIN SODIUM 100 MG in SODIUM CHL 0.9% 100 ML IV SCH (10:27)
[2020-01-10 10:30] LABS: Basophils # (auto) 0.1 10 ^3/uL (0-0.2); Basophils % (auto) 0.3 % (0.0-2.0); Lymphocytes # (auto) 1.6 10 ^3/uL (0.4-5.4); Lymphocytes % (auto) 5.6 % (10.0-50.0)
[2020-01-10 10:31] LABS: Eosinophils # (auto) 0.4 10 ^3/uL (0-0.8); Eosinophils % (auto) 1.3 % (0.0-7.0); Hematocrit 28.4 % (41.0-53.0); Hemoglobin 9.1 g/dL (13.5-17.5); Mean Corpuscular Hemoglobin 24.7 pg (28.0-32.0); Mean Corpuscular Volume 77.1 fL (80.0-100.0); Monocytes # (auto) 1.6 10 ^3/uL (0-1.3); Monocytes % (auto) 5.5 % (0.0-12.0); Neutrophils # (auto) 24.6 10 ^3/uL (1.6-8.6); Neutrophils % (auto) 87.3 % (37.0-80.0); Platelet Count (auto) 577 10^3/uL (140-450); Red Blood Cells 3.68 10^6/uL (4.5-5.90); Red Cell Distribution Width 17.9 % (11.8-14.3); White Blood Cell 28.2 10^3/uL (4.4-10.8)
--- NOTE | 2020-01-10 10:45 | NUR ---
Dr. Rincon informed we are waiting bed availability at [facility].
[2020-01-10 10:53] LABS: Albumin 2.4 g/dL (3.4-5.0); Calcium 8.8 mg/dL (8.5-10.1); Magnesium 2.3 mg/dL (1.6-2.6)
[2020-01-10 10:57] LABS: BUN/Creatinine Ratio 13.4; Bilirubin, Total 0.5 mg/dL (0.2-1.0); Phosphorus 2.7 mg/dL (2.5-4.90); Total Protein 7.7 g/dL (6.4-8.2)
--- NOTE | 2020-01-10 11:20 | NUR ---
WOUND CARE NOTE: IN TO ASSESS WOUND TO LEFT GLUTEAL/SACRUM AT THIS TIME. CURRENT HA SCORE IS 16. PATIENT'S SKIN TEAR TO THE LEFT GLUTEAL AREA IS NOW RESOLVED. NO OPEN OR DRAINING AREAS NOTED. APPLIED OPTIFOAM GENTLE DRESSING TO COVER AND PROTECT NEWLY CLOSED WOUND. WOUND PHOTO TAKEN AT THIS TIME FOR REFERENCE. SKIN/WOUND CARE PLAN UPDATED. NO FURTHER WOUND CARE MONITORING NEEDED.
--- NOTE | 2020-01-10 12:46 | NUR ---
Nutrition Followup Notes WT : 76.2 kg Pt is still awaiting transfer to [facility] for surgical oncology evaluation. Pt is still NPO. Pt currently on PN support @ 70 ml/hr providing 1780 kcals and 80 gm protein 1460 NCP. Pt with adequate energy intake from PN support aeb 96-110% of est caloric needs. Protein intake from PN support is adequate aeb 99-123% protein needs. Est Energy needs: 0170-8541 kcals (20-23 kcal/kgBW), Est Protein needs: 65-81 gms/day (0.8-1.0 gm/kgBW). Will continue to monitor and reassess prn. LABS: GLU 164 H, ALB 2.2 L, AST/ALT 87/75 H GI: Gastric drainage 850 mL 01/04 per RN doc BS: 16 mod risk, skin tear. Please refer to wound assessment report for full details. PES: Problem 1) Increased nutrient needs r/t pt currently with no PO intake aeb pt NPO status 2) Altered nutrition related lab values r/t current medical condition aeb hyperglycemia, mod hypoalbuminemia Comments Will continue to closely monitor pertinent labs, PO intake and skin status prn. Will followup in 2-3 days 1) Gradually advance pt to oral diet when medically feasible and as tolerated . 2) Continue PN support to meet > 75% of needs. 3) Continue current plan of care
[2020-01-10 13:00] VITALS: BP 146/100
--- NOTE | 2020-01-10 13:48 | NUR ---
Dr. Rincon informed that the patient states the pain medication does not hold him for the three hours between doses.
[2020-01-10 17:00] VITALS: BP 154/101
--- NOTE | 2020-01-10 17:21 | NUR ---
Received call from Charis at [facility]. Requested information faxed to [phone]. Charis states she will have the accepting MD review information and she will call back to confirm the patient has been accepted.
--- NOTE | 2020-01-10 17:25 | NUR ---
Per [facility], patient to go to [facility], Room 811. Accepting MD: Dr. [facility] [id number] [place] [address] Charis: [phone] Ext. [phone] Waiting return call for confirmation of acceptance.
[2020-01-10 17:54] VITALS: BP 154/101
--- NOTE | 2020-01-10 18:54 | NUR ---
Received verification that patient has been accepted to [facility]. Page placed to Dr. Barragan, hospitalist on-call.
--- NOTE | 2020-01-10 19:20 | NUR ---
Opening Shift Note Assumed care of patient, awake and alert. No S/S of distress/SOB. Patient reporting 7/10 pain to abdominal area, will medicate with ordered Dilaudid when due. Patient verbalized understanding. NG tube to right nare, 150 ml of dark green output noted at thsi time, will continue to monitor. Bed in lowest locked position, side rails up x2, call light within reach. Instructed on POC and to call for assist PRN, will continue to monitor for changes Q1hr and PRN.
--- NOTE | 2020-01-10 19:36 | NUR ---
No return call from control manager hospitalist Dr. Barragan, paged again, awaiting call back at this time.
[2020-01-10] MEDS ORDERED: TPN PER PHARMACY IV NR ×9 (20:00)
--- NOTE | 2020-01-10 20:00 | NUR ---
No return page from MICHELE Wyatt distribution accounting clerk hospitalist Dr. Delta Cortez MD paged, awaiting call back at this time.
--- NOTE | 2020-01-10 20:58 | NUR ---
[facility] contacted, spoke with PEDRO Harding for ACLS pickup sixty minutes. Patient and charge nurse Beronica CASH made aware. Patient's also informed after phone call and confirmation of password. All verbalized understanding. No s/s of distress. Will continue care.
--- NOTE | 2020-01-10 21:05 | NUR ---
Received call from Charis at [facility], updated her on [facility] ETA. Charis requested call from this RN when [facility] arrived to confirm patient is stable for transport. This RN verbalized understanding. Will continue to monitor at patient.
--- NOTE | 2020-01-10 21:38 | NUR ---
Patient reporting nausea, brought up 100 ml of clear thin sputum, will medicate for nausea as ordered (see emar) and continue to monitor.
[2020-01-10 22:09] VITALS: BP 166/112
--- NOTE | 2020-01-10 22:33 | NUR ---
SAVITA at bedside to transport patient. Spoke with Charis from [facility], informed her of patient's current vital signs. Patient been hypertensive at 166/42 with 121 heart rate. Hydralazine administered as ordered by this RN (see emar). Patient's blood pressure and heart rate reassessed by Kay BARBA will this RN was giving report to [facility] staff and Charis. Blood pressure now 159/97, heart rate. Charis concerned that patient's heart rate sustaining in the 130's -140's despite ordered pain medication and nausea medication. Requested to have doctor from [facility] speak with our doctor at [facility] prior to patient being transported. Charis informed by this RN that Dr. Delta Cortez MD is environmental professional hospitalist with this facility and able to speak with the doctor from [facility]. Phone number and extension to reach Dr. Cortez provided to Charis. This RN verbalized understanding. Will page Dr. Cortez regarding patient within the hour if this RN has not heard from MD before then. Charge nurse Beronica CASH made aware. Will continue to monitor patient. Addendum: 01/11/20 at 0627 by CARMEN MARTIN RN RN ADDITION: Per Charis, transfer is not canceled, just on hold at this time. [facility] staff aware, will contact [facility] when transport needed for transfer.
--- NOTE | 2020-01-10 23:44 | NUR ---
Received call from hand alterations seamstress hospitalist Dr. Delta Cortez MD. SBAR given, new orders received for 0.9% Normal Saline bolus and Lopressor 5 mg IV x 3 for heart rate greater the 150. All orders read back and verified, will implement as ordered and continue to monitor. Addendum: 01/11/20 at 0522 by CARMEN MARTIN RN RN ADDITION: Lopressor 5 mg doses every five minutes until heart rate < 150.
[2020-01-11] MEDS ORDERED: SODIUM CHLORIDE 0.9% 1,000 ML IV ONE
[2020-01-11] MEDS: ACCU-CHEK COMFORT CURVE STRIP VI SCH ×4 (00:20→17:30)
[2020-01-11] MEDS: HYDROmorphone HCL 2 MG/ML VL IV PRN ×8 (00:21→21:08)
--- NOTE | 2020-01-11 00:21 | NUR ---
Lopressor 5 mg IV administered as ordered at 00:21. Blood pressure and heart rate assessed after five minutes, now 133/103 mm Hg with 118 heart rate. MD Cortez made aware, ok to give second and third dose of Lopressor as ordered as long as heart rate greater than 100 beats per minute and blood pressure remains within normal limits. Lopressor 5 mg IV administered as ordered at 00:31, after five minutes blood pressure 143/99 mm Hg with 116 heart rate. Third dose of Lopressor administered at 00:38, after five minutes blood pressure 142/92 mm Hg with 116 heart rate. MD membreno. Will continue to monitor patient and contact [facility] staff within the hour.
[2020-01-11] MEDS: METOPROLOL TARTRATE 1MG/1ML-5ML VIAL IV SCH (00:22)
--- NOTE | 2020-01-11 01:30 | NUR ---
Patient's heart rate sinus tachycardia, usually in the low 110's, highest rate seen 120. Will call [facility] and continue care.
--- NOTE | 2020-01-11 01:39 | NUR ---
[facility] regarding patient's transfer. Per Ingrid, doctor from [facility] concerned about patient's stability and ability to transfer to [facility] at this time due to patient's elevated heart rate and increase in WBC's during stay at [facility]. This RN was transferred to [facility]'s doctor, Dr. Diez, and spoke with him regarding patient's current status and care. Dr. Diez stated that he remained concerned and about patient's stability and informed this RN that he had been unable to get in touch with Dr. Cortez prior to speaking to this RN. Per Dr. Diez if Dr. Cortez believes the patient is stable enough to transfer [facility] can still accept him, but he would like to speak to Dr. Cortez. Phone number from Dr. Diez is [phone]. Phone number read back and verified. Will inform charge nurse and MD and continue patient care.
--- NOTE | 2020-01-11 01:45 | NUR ---
Charge nurse Beronica CASH informed of concerns from [facility] staff. shell core and molding supervisor Alisa updated on current status of patient's transfer. shell core and molding supervisor stated she would speak with Dr. Cortez about speaking with Dr. Diez. Will continue to monitor patient.
[2020-01-11 05:28] VITALS: BP 137/103
--- NOTE | 2020-01-11 05:50 | NUR ---
Spoke with charge nurse Beronica CASH regarding patient's transfer. Per charge nurse, will endorse [facility] Will endorse to days[facility]ft RN and continue to monitor.
[2020-01-11] MEDS: LINEZOLID 600MG/300ML 300 ML IV SCH ×2 (06:16→17:30)
[2020-01-11] MEDS: InsuLIN REG 1unit/0.01ml Soln (100units/ml) SC SCH ×4 (06:16→17:30)
[2020-01-11 06:25] LABS: Red Cell Distribution Width 18.1 % (11.8-14.3)
[2020-01-11 06:31] LABS: Hematocrit 27.7 % (41.0-53.0); Hemoglobin 8.7 g/dL (13.5-17.5); Mean Corpuscular Hemoglobin 24.2 pg (28.0-32.0); Mean Corpuscular Hgb Conc. 31.6 g/dL (32.0-36.0); Mean Corpuscular Volume 76.8 fL (80.0-100.0); Platelet Count (auto) 539 10^3/uL (140-450); Red Blood Cells 3.61 10^6/uL (4.5-5.90); White Blood Cell 25.4 10^3/uL (4.4-10.8)
[2020-01-11 06:38] LABS: Band Neutrophils % (manual) 0; Basophils % (manual) 0 (0.0-2.0); Blast Cells 0; Eosinophils % (manual) 0 (0-7); Metamyelocytes % 0; Myelocytes % 0; Promyelocytes % 0; Reactive Lymphocytes 0
[2020-01-11 06:47] LABS: Albumin 2.3 g/dL (3.4-5.0); Calcium 8.7 mg/dL (8.5-10.1); Magnesium 2.3 mg/dL (1.6-2.6); Potassium 4.1 mmol/L (3.5-5.1)
[2020-01-11 06:50] LABS: BUN/Creatinine Ratio 13.7; Bilirubin, Total 0.5 mg/dL (0.2-1.0); Phosphorus 3.6 mg/dL (2.5-4.90); Total Protein 7.7 g/dL (6.4-8.2)
--- NOTE | 2020-01-11 06:50 | NUR ---
updated on patient's plan of care after password verified, all questions and concerns addressed.
[2020-01-11 07:17] LABS: Lymphocytes % (manual) 3 (10.0-50.0); Monocytes % (manual) 3 (0-12)
--- NOTE | 2020-01-11 07:25 | NUR ---
Closing Note Patient lying in bed, awake and alert. Bed in lowest locked position, side rails up x2, call light within reach. Will endorse care to dayshift RN.
--- NOTE | 2020-01-11 07:30 | NUR ---
Opening Shift Note Assumed care of patient, awake and alert. No S/S of distress/SOB or pain. Instructed on POC and to call for assist PRN, will continue to monitor for changes Q1hr and PRN. NG right nare to LIS.
[2020-01-11] MEDS: MEROPENEM 1GM IVPB 100 ML IV SCH ×3 (08:00→21:07)
[2020-01-11 09:00] VITALS: BP 147/108
--- NOTE | 2020-01-11 09:45 | NUR ---
Placed call to [facility] - [phone] to check status of transfer. No answer. Will call again.
[2020-01-11] MEDS: SODIUM CHLOR 0.9% PF (SALINE LOCK) 10ML VIAL/SYR IV SCH ×2 (10:00→21:07)
[2020-01-11] MEDS: PANTOPRAZOLE 40 MG/10 ML VIAL INJ IV SCH ×2 (10:14→21:07)
[2020-01-11] MEDS: ENOXAPARIN SOD 80 MG/0.8ML SYRINGE SC SCH ×2 (10:14→21:06)
[2020-01-11] MEDS: MICAFUNGIN SODIUM 100 MG in SODIUM CHL 0.9% 100 ML IV SCH (10:15)
--- NOTE | 2020-01-11 10:50 | NUR ---
Dr. Rincon in to see patient as hospitalist. Dr. Rincon states he spoke with Dr. Diez at [facility].
--- NOTE | 2020-01-11 11:07 | NUR ---
NG tube fell out. Patient does not want NG replaced at this time. Patient states it has been in too long. Will continue to monitor.
--- NOTE | 2020-01-11 12:45 | NUR ---
Spoke with Barbie at the patient placement dept of [facility]: [phone]. Per Barbie, no beds available at this time.
[2020-01-11 13:00] VITALS: BP 160/102
--- NOTE | 2020-01-11 15:10 | NUR ---
Attempted to insert 16 Fr. NG tube into right nare. Patient was not able to tolerate insertion. Does not want another attempt at this time. Will continue to monitor.
--- NOTE | 2020-01-11 16:30 | NUR ---
Spoke with patient's and updated her on transfer. Informed her that [facility] does not have a bed at this time.
[2020-01-11 17:00] VITALS: BP 158/110
[2020-01-11] MEDS: fentaNYL 25MCG/HR 25 MCG/HR PAT TD SCH (17:36)
--- NOTE | 2020-01-11 17:52 | NUR ---
Duragesic patch applied to right upper chest not left upper chest per eMAR.
--- NOTE | 2020-01-11 18:53 | NUR ---
Received call from Barbie at Patient Placement at [facility]. She requested today's progress note be faxed to [phone]. Information sent.
[2020-01-11] MEDS ORDERED: TPN PER PHARMACY IV NR ×9 (20:00)
--- NOTE | 2020-01-11 20:08 | NUR ---
OPENING NOTE Patient is NPO. Patient refusing new NG tube placement. Day shift RN tried reinserting a new one after the old one fell out and was unsuccessful. Patient then refused after the attempt. Educated patient on purpose of NG tube. Patient verbalized understanding.
--- NOTE | 2020-01-11 20:13 | NUR ---
UPDATE WITH DANIEL MARY [facility] Spoke with Barbie. Per transfer center: [phone] After the accepting MD reviewed patient's most recent chart, patient is not stable for transfer so they will not be accepting the patient at this time. This nurse was informed that the patient is not stable due to elevated WBC and elevated BP. They cancelled transfer and said that once patient is stable that we can send transfer request again.
[2020-01-11] MEDS: hydrALAZINE HCL 20 MG/ML VL IV PRN (21:23)
[2020-01-11 22:00] VITALS: BP 160/114
--- NOTE | 2020-01-11 22:14 | NUR ---
TEMPERATURE temp 100.4 cooling measures started
--- NOTE | 2020-01-11 22:30 | NUR ---
SPOKE WITH FAMILY MEMBER Spoke with patient's , Kendra. Password was obtained. she was given an update on Patient and POC. All questions were answered
[2020-01-12] MEDS: HYDROmorphone HCL 2 MG/ML VL IV PRN ×8 (00:08→22:19)
[2020-01-12] MEDS: ACCU-CHEK COMFORT CURVE STRIP VI SCH ×4 (00:19→17:27)
--- NOTE | 2020-01-12 00:35 | NUR ---
PAIN REASSESSMENT Patient is resting in bed. No s/s of discomfort is seen at this time. Will continue care
--- NOTE | 2020-01-12 00:50 | NUR ---
ekg done Patient had a run of vtach. HR elevated to about 150. This did not sustain. Patient asymptomatic. Patient denied any CP/SOB. EKG done and read by hospitalist Diego. MD Cortez said to continue to monitor. Informed MD about reason why patient has not been transferred. said let day shift know in AM. Will continue care. VS 165/100 HR 124 O2 99 on room air. RR 16.
--- NOTE | 2020-01-12 03:58 | NUR ---
PAIN REASSESSMENT Patient is resting in bed with eyes closed. No s/s of discomfort noted.
[2020-01-12 05:00] VITALS: BP 173/116
[2020-01-12] MEDS: MEROPENEM 1GM IVPB 100 ML IV SCH ×3 (05:20→22:24)
[2020-01-12] MEDS: InsuLIN REG 1unit/0.01ml Soln (100units/ml) SC SCH ×4 (06:00→17:26)
--- NOTE | 2020-01-12 06:00 | NUR ---
NOTE Educated patient on NG tube again and that it can help alleviate some of that pain and help prevent it from getting worse. Patient verbalized understanding. Encouraged patient to have this RN attempt insertion again. Patient still continues to refuse but said that he will give it some thought. Patient denies any increase of pain/symptoms since NG tube has been out. Will continue care.
[2020-01-12] MEDS: hydrALAZINE HCL 20 MG/ML VL IV PRN ×2 (06:12→22:24)
[2020-01-12 06:20] LABS: Basophils # (auto) 0.1 10 ^3/uL (0-0.2); Basophils % (auto) 0.2 % (0.0-2.0); Eosinophils # (auto) 0.4 10 ^3/uL (0-0.8); Eosinophils % (auto) 1.5 % (0.0-7.0); Hematocrit 28.8 % (41.0-53.0); Lymphocytes # (auto) 1.3 10 ^3/uL (0.4-5.4); Lymphocytes % (auto) 5.6 % (10.0-50.0); Mean Corpuscular Hemoglobin 24.6 pg (28.0-32.0); Mean Corpuscular Hgb Conc. 31.3 g/dL (32.0-36.0); Mean Corpuscular Volume 78.6 fL (80.0-100.0); Monocytes # (auto) 1.3 10 ^3/uL (0-1.3); Monocytes % (auto) 5.4 % (0.0-12.0); Neutrophils # (auto) 20.9 10 ^3/uL (1.6-8.6); Neutrophils % (auto) 87.3 % (37.0-80.0); Platelet Count (auto) 504 10^3/uL (140-450); Red Blood Cells 3.66 10^6/uL (4.5-5.90)
[2020-01-12] MEDS: LINEZOLID 600MG/300ML 300 ML IV SCH ×2 (06:24→18:18)
[2020-01-12 06:41] LABS: Albumin 2.4 g/dL (3.4-5.0); Calcium 8.8 mg/dL (8.5-10.1); Magnesium 2.3 mg/dL (1.6-2.6); Potassium 3.7 mmol/L (3.5-5.1)
[2020-01-12 06:44] LABS: BUN/Creatinine Ratio 13.7; Bilirubin, Total 0.7 mg/dL (0.2-1.0); Phosphorus 3.7 mg/dL (2.5-4.90); Total Protein 8.1 g/dL (6.4-8.2)
[2020-01-12 08:00] VITALS: BP 173/116
--- NOTE | 2020-01-12 08:00 | NUR ---
ASSESSMENT NOTE PT IS ALERT ORIENTED X4, RESTING IN BED COMFORTABLY, ABLE TO SELF REPOSITION AND VERBALIS HIS DEMANDS, COLOSTOMY NOTED AT RT LOWER LOWER QUADRANT, PT HAS HARD FIRM HARD ABDOMEN ESPECIALLY AT THE LEFT SIDE, ON PAIN MANAGEMENT AT ALL TIMES AT ALL TIMES, SUPPORT GIVEN TO PT, CALL LIGHT WITHIN REACH
[2020-01-12 09:00] VITALS: BP 160/100
[2020-01-12] MEDS: ENOXAPARIN SOD 80 MG/0.8ML SYRINGE SC SCH ×2 (09:02→22:24)
[2020-01-12] MEDS: SODIUM CHLOR 0.9% PF (SALINE LOCK) 10ML VIAL/SYR IV SCH ×2 (09:02→22:24)
[2020-01-12] MEDS: PANTOPRAZOLE 40 MG/10 ML VIAL INJ IV SCH ×2 (09:03→22:24)
[2020-01-12] MEDS: MICAFUNGIN SODIUM 100 MG in SODIUM CHL 0.9% 100 ML IV SCH (09:03)
--- NOTE | 2020-01-12 10:00 | NUR ---
NGT PT REFUSED
[2020-01-12] MEDS ORDERED: ENALAPRILAT 1.25 MG/ML-1ML VIAL IV ONE (10:45)
[2020-01-12] MEDS ORDERED: cloNIDine 0.3 mg/24hr 7DAY PATCH TD ONE (10:45)
[2020-01-12 13:00] VITALS: BP 175/122
--- NOTE | 2020-01-12 14:33 | NUR ---
Nutrition Followup Notes WT : 76.2 kg Pt is still awaiting transfer to [facility] for surgical oncology evaluation. Pt is still NPO. Pt currently on PN support @ 70 ml/hr providing 1780 kcals and 80 gm protein 1460 NCP. Pt with adequate energy intake from PN support aeb 96-110% of est caloric needs. Protein intake from PN support is adequate aeb 99-123% protein needs. Est Energy needs: 8514-2214 kcals (20-23 kcal/kgBW), Est Protein needs: 65-81 gms/day (0.8-1.0 gm/kgBW). Will continue to monitor and reassess prn. LABS: GLU 124 H, ALB 2.4 L GI: Gastric drainage 850 mL 01/04 per RN doc BS: 15 mod risk, skin tear. Please refer to wound assessment report for full details. PES: Problem 1) Increased nutrient needs r/t pt currently with no PO intake aeb pt NPO status 2) Altered nutrition related lab values r/t current medical condition aeb hyperglycemia, mod hypoalbuminemia Comments Will continue to closely monitor pertinent labs, PO intake and skin status prn. Will followup in 2-3 days 1) Gradually advance pt to oral diet when medically feasible and as tolerated . 2) Continue PN support to meet > 75% of needs. 3) Continue current plan of care
--- NOTE | 2020-01-12 15:00 | NUR ---
CHRISTINA FROM [facility] CONTINUE WORKING ON THE TRANSFER PROCESS
--- NOTE | 2020-01-12 15:01 | NUR ---
PAGE DR AVILA, REGARDING PT
--- NOTE | 2020-01-12 15:30 | NUR ---
Nasogastric tube insertion Patient educated on need for NG tube. All questions addressed. NGT inserted per MD order. Placement verified by aspiration of stomach contents, auscultation.
[2020-01-12 17:00] VITALS: BP 162/107
--- NOTE | 2020-01-12 18:00 | NUR ---
FAMILY CALLED EVERY 3 HOURS, UPDATED AT ALL TIMES
--- NOTE | 2020-01-12 18:31 | NUR ---
PT CONTINUE STABLE, CONTINUE MONITORING
--- NOTE | 2020-01-12 19:00 | NUR ---
OPENING NOTE Received report from day shift RN. Patient is A&O X's 4 with no s/s of distress. Patient c/o abdominal pain rated at a 6. Patient was just recently medicated with pain medication. Educated patient on POC and to use call light when in need of assistance. Patient verbalized understanding. Bed is in lowest/locked position with side rails up X's 2 and call light is within reach of patient. Patient has NG tube to right nare that is to LIS. Will monitor output.
[2020-01-12] MEDS ORDERED: TPN PER PHARMACY IV NR ×8 (20:00)
[2020-01-12 22:00] VITALS: BP 166/115
--- NOTE | 2020-01-12 22:49 | NUR ---
PAIN REASSESSMENT Patient resting at this time. Will continue care
[2020-01-13] MEDS: HYDROmorphone HCL 2 MG/ML VL IV PRN ×7 (01:19→21:10)
[2020-01-13 05:00] VITALS: BP 148/114
[2020-01-13] MEDS: MEROPENEM 1GM IVPB 100 ML IV SCH ×3 (05:13→21:08)
[2020-01-13] MEDS: InsuLIN REG 1unit/0.01ml Soln (100units/ml) SC SCH ×4 (06:00→17:59)
[2020-01-13] MEDS: LINEZOLID 600MG/300ML 300 ML IV SCH ×2 (06:08→17:58)
[2020-01-13] MEDS: ACCU-CHEK COMFORT CURVE STRIP VI SCH ×4 (06:08→17:59)
--- NOTE | 2020-01-13 06:26 | NUR ---
NG TUBE OUTPUT about 700ml during this shift . tube remains in place to right nare. Patient tolerating it well.
--- NOTE | 2020-01-13 07:40 | NUR ---
Opening Note Received report from shift boss RN. Patient is awake, alert and oriented x4. Patient is on 2L NC, respirations even and unlabored. Patient states generalized body pain 10/10 and is requesting medication. Will medicate per orders. Patient has NG tube to right nares, on low continuos suction. Reviewed plan of care, patient verbalized understanding. Bed in low and locked position, call light within reach. Will continue to monitor Q1 hour and PRN.
--- NOTE | 2020-01-13 08:09 | NUR ---
Pain Patient states pain 10/10 and is requesting pain medications, will medicate per orders. Will continue to monitor Q1 hour and PRN.
[2020-01-13 09:00] VITALS: BP 145/109
[2020-01-13 09:41] LABS: Albumin 2.2 g/dL (3.4-5.0); Calcium 8.5 mg/dL (8.5-10.1); Magnesium 1.8 mg/dL (1.6-2.6); Potassium 3.7 mmol/L (3.5-5.1)
[2020-01-13 09:45] LABS: BUN/Creatinine Ratio 15.2; Bilirubin, Total 0.5 mg/dL (0.2-1.0); Phosphorus 3.5 mg/dL (2.5-4.90); Total Protein 7.6 g/dL (6.4-8.2)
[2020-01-13] MEDS: PANTOPRAZOLE 40 MG/10 ML VIAL INJ IV SCH ×2 (10:04→21:09)
[2020-01-13] MEDS: ENOXAPARIN SOD 80 MG/0.8ML SYRINGE SC SCH ×2 (10:04→21:09)
[2020-01-13] MEDS: SODIUM CHLOR 0.9% PF (SALINE LOCK) 10ML VIAL/SYR IV SCH ×2 (10:04→21:09)
[2020-01-13] MEDS: MICAFUNGIN SODIUM 100 MG in SODIUM CHL 0.9% 100 ML IV SCH (10:05)
[2020-01-13 13:00] VITALS: BP 156/115
[2020-01-13] MEDS: hydrALAZINE HCL 20 MG/ML VL IV SCH ×2 (13:30→17:58)
[2020-01-13] MEDS ORDERED: NITROGLYCERIN 0.2MG/HR TOPICAL PATCH TD ONE (13:30)
--- NOTE | 2020-01-13 14:42 | NUR ---
I called the [facility] transfer center and was told that the transfer request for this patient was cancelled (due to patient being unstable this weekend) and would have to be [id number] relayed this information to Dr. Gumzán.
[2020-01-13 17:00] VITALS: BP 147/120
--- NOTE | 2020-01-13 18:50 | NUR ---
NG Tube Output 350mls of green fluid emptied from collection canister.
--- NOTE | 2020-01-13 19:09 | NUR ---
Closing Note Report given to manager shift RN. No signs or symptoms of distress noted at this time.
[2020-01-13] MEDS ORDERED: TPN PER PHARMACY IV NR ×8 (20:00)
[2020-01-13 21:33] VITALS: BP 148/101
--- NOTE | 2020-01-13 22:30 | NUR ---
Received call from [facility] Spoke with Lashaun from [facility] and was informed that the patient has been on will call for to long and that it was being canceled. She stated that it will have to be called in again if [facility] transport is still needed.
--- NOTE | 2020-01-14 03:30 | NUR ---
Colostomy bag changed Removed old bag, cleaned area and then applied skin prep. Ostomy protrudes from abd and is light pink in color. Cut new appliance to 1 5/8 inches and then applied over ostomy.
[2020-01-14] MEDS: HYDROmorphone HCL 2 MG/ML VL IV PRN ×7 (03:37→22:27)
[2020-01-14] MEDS: hydrALAZINE HCL 20 MG/ML VL IV SCH ×2 (04:30)
[2020-01-14] MEDS: MEROPENEM 1GM IVPB 100 ML IV SCH ×3 (04:30→22:25)
[2020-01-14 05:00] VITALS: BP 140/100
[2020-01-14] MEDS: InsuLIN REG 1unit/0.01ml Soln (100units/ml) SC SCH ×4 (06:00→17:35)
[2020-01-14] MEDS: ACCU-CHEK COMFORT CURVE STRIP VI SCH ×4 (06:01→17:35)
[2020-01-14] MEDS: LINEZOLID 600MG/300ML 300 ML IV SCH ×2 (06:36→17:35)
--- NOTE | 2020-01-14 07:07 | NUR ---
NGT Output 350ML of green fluid output during shift. NGT still running LIS.
[2020-01-14 08:00] VITALS: BP 145/109
--- NOTE | 2020-01-14 08:00 | NUR ---
ASSESSMENT NOTE PT IS ALERT ORIENTED X4, RESTING IN BED COMFORTABLY, ABLE TO SELF REPOSITION AND VERBALIS HIS DEMANDS, COLOSTOMY NOTED AT RT LOWER LOWER QUADRANT, NGT TO THE RT NARES TO LIS, PT HAS HARD FIRM HARD ABDOMEN ESPECIALLY AT THE LEFT SIDE, ON PAIN MANAGEMENT AT ALL TIMES AT ALL TIMES, SUPPORT GIVEN TO PT, CALL LIGHT WITHIN REACH
[2020-01-14 09:00] VITALS: BP 174/116
[2020-01-14] MEDS: ENOXAPARIN SOD 80 MG/0.8ML SYRINGE SC SCH ×2 (09:25→22:26)
[2020-01-14] MEDS: NITROGLYCERIN 0.2MG/HR TOPICAL PATCH TD SCH (09:25)
[2020-01-14] MEDS: PANTOPRAZOLE 40 MG/10 ML VIAL INJ IV SCH ×2 (09:25→22:26)
[2020-01-14] MEDS: MICAFUNGIN SODIUM 100 MG in SODIUM CHL 0.9% 100 ML IV SCH (09:26)
[2020-01-14] MEDS: SODIUM CHLOR 0.9% PF (SALINE LOCK) 10ML VIAL/SYR IV SCH ×2 (09:28→22:26)
[2020-01-14 10:05] LABS: Albumin 2.3 g/dL (3.4-5.0); Calcium 8.5 mg/dL (8.5-10.1); Magnesium 2.2 mg/dL (1.6-2.6); Potassium 3.9 mmol/L (3.5-5.1)
[2020-01-14 10:10] LABS: BUN/Creatinine Ratio 13.3; Bilirubin, Total 0.5 mg/dL (0.2-1.0); Phosphorus 3.1 mg/dL (2.5-4.90); Pre Albumin 20.9 mg/dL (20.0-40.0); Total Protein 7.4 g/dL (6.4-8.2)
[2020-01-14 13:00] VITALS: BP 162/125
--- NOTE | 2020-01-14 13:10 | NUR ---
PAIN MEDICATION PATIENT C/O ABDOMINAL AND BACK PAIN. RATES IT 02/19, MEDICATED PER MD ORDERS.
--- NOTE | 2020-01-14 14:21 | NUR ---
PAGE DR AVILA TO VERIFY BLOOD PRESSURE DISCONTINUE ORDERS
--- NOTE | 2020-01-14 15:07 | NUR ---
Nutrition Followup Notes WT : 76.0 kg Pt is still awaiting transfer to higher level of care. Pt is still NPO. Pt currently on PN support @ 71 ml/hr providing 1780 kcals and 80 gm protein 1460 NCP. Pt with adequate energy intake from PN support aeb 96-110% of est caloric needs. Protein intake from PN support is adequate aeb 99-123% protein needs. Will continue to closely monitor pertinent labs, PO intake and skin status prn. Will followup in 2-3 days Est Energy needs: 3305-8225 kcals (20-23 kcal/kgBW), Est Protein needs: 65-81 gms/day (0.8-1.0 gm/kgBW). Will continue to monitor and reassess prn. LABS: GLU 121 H, ALB 2.3 L GI: Gastric drainage 750 mL 01/12 per RN doc BS: 18 mod risk, skin tear. Please refer to wound assessment report for full details. PES: Problem 1) Increased nutrient needs r/t pt currently with no PO intake aeb pt NPO status 2) Altered nutrition related lab values r/t current medical condition aeb hyperglycemia, mod hypoalbuminemia Comments Will continue to closely monitor pertinent labs, PO intake and skin status prn. Will followup in 2-3 days 1) Gradually advance pt to oral diet when medically feasible and as tolerated . 2) Continue PN support to meet > 75% of needs. 3) Continue current plan of care
[2020-01-14] MEDS: fentaNYL 25MCG/HR 25 MCG/HR PAT TD SCH (16:08)
[2020-01-14 17:00] VITALS: BP 192/100
[2020-01-14] MEDS: METOPROLOL TARTRATE 1MG/1ML-5ML VIAL IV SCH (17:36)
[2020-01-14] MEDS: ENALAPRILAT 1.25 MG/ML-1ML VIAL IV PRN (17:37)
--- NOTE | 2020-01-14 19:21 | NUR ---
PT CONTINUE JACI PAIN MANAGEMENT AROUND THE CLOCK, ASSISTED PT TO STAY DRY AND CLEAN, CONTINUE MONITORING
[2020-01-14] MEDS ORDERED: TPN PER PHARMACY IV NR ×7 (20:00)
[2020-01-15] MEDS: ACCU-CHEK COMFORT CURVE STRIP VI SCH ×5 (00:32→23:44)
[2020-01-15] MEDS: ENALAPRILAT 1.25 MG/ML-1ML VIAL IV PRN ×2 (00:33→08:27)
[2020-01-15] MEDS: HYDROmorphone HCL 2 MG/ML VL IV PRN ×8 (01:28→22:54)
[2020-01-15] MEDS: MEROPENEM 1GM IVPB 100 ML IV SCH ×3 (04:30→22:20)
[2020-01-15 05:48] VITALS: BP 161/117
[2020-01-15] MEDS: InsuLIN REG 1unit/0.01ml Soln (100units/ml) SC SCH ×5 (06:00→23:58)
[2020-01-15] MEDS: LINEZOLID 600MG/300ML 300 ML IV SCH ×2 (06:36→17:53)
--- NOTE | 2020-01-15 07:30 | NUR ---
Opening Shift Note Assumed care of patient, awake and alert. No S/S of distress/SOB or pain. Instructed on POC and to call for assist PRN, will continue to monitor for changes Q1hr and PRN. NG to right nare to LIS. PICC line RUE. Colostomy RLQ.
--- NOTE | 2020-01-15 08:54 | NUR ---
4641 01/15/20 contacted transfer center at [facility] at [phone] to follow-up on request for transfer to higher level of care (surgery oncology). The following items already faxed to [facility] transfer center face sheet, transfer order, H/P,current labs, meds, xrays, COVID 19 results. Spoke with grain cleaner and transfer operator Dora and his dolphin trainer Kash, explained situation regarding previous attempt to transfer patient. Per Kash all request for transfer are taken over the phone to include screening for COVID 19. Will fax today's progress notes to [phone] as per request and follow-up this afternoon with grain cleaner and transfer operator.
[2020-01-15 09:12] VITALS: BP 174/115
[2020-01-15] MEDS: SODIUM CHLOR 0.9% PF (SALINE LOCK) 10ML VIAL/SYR IV SCH ×2 (10:00→22:20)
[2020-01-15] MEDS: ENOXAPARIN SOD 80 MG/0.8ML SYRINGE SC SCH ×2 (10:43→22:20)
[2020-01-15] MEDS: MICAFUNGIN SODIUM 100 MG in SODIUM CHL 0.9% 100 ML IV SCH (10:44)
[2020-01-15] MEDS: PANTOPRAZOLE 40 MG/10 ML VIAL INJ IV SCH ×2 (10:44→22:20)
[2020-01-15] MEDS: NITROGLYCERIN 0.2MG/HR TOPICAL PATCH TD SCH (10:44)
[2020-01-15 11:18] LABS: Basophils # (auto) 0.1 10 ^3/uL (0-0.2); Eosinophils # (auto) 0.3 10 ^3/uL (0-0.8); Eosinophils % (auto) 1.7 % (0.0-7.0); Hemoglobin 8.1 g/dL (13.5-17.5); Lymphocytes # (auto) 1.3 10 ^3/uL (0.4-5.4); Mean Corpuscular Volume 76.7 fL (80.0-100.0); Monocytes # (auto) 1.4 10 ^3/uL (0-1.3)
[2020-01-15 11:19] LABS: Basophils % (auto) 0.4 % (0.0-2.0); Hematocrit 25.6 % (41.0-53.0); Lymphocytes % (auto) 7.5 % (10.0-50.0); Mean Corpuscular Hemoglobin 24.2 pg (28.0-32.0); Mean Corpuscular Hgb Conc. 31.6 g/dL (32.0-36.0); Monocytes % (auto) 7.9 % (0.0-12.0); Neutrophils # (auto) 14.4 10 ^3/uL (1.6-8.6); Neutrophils % (auto) 82.5 % (37.0-80.0); Platelet Count (auto) 417 10^3/uL (140-450); Red Blood Cells 3.34 10^6/uL (4.5-5.90); Red Cell Distribution Width 18.1 % (11.8-14.3); White Blood Cell 17.4 10^3/uL (4.4-10.8)
[2020-01-15 11:37] LABS: Albumin 2.3 g/dL (3.4-5.0); Calcium 8.9 mg/dL (8.5-10.1); Magnesium 2.2 mg/dL (1.6-2.6); Potassium 3.9 mmol/L (3.5-5.1)
[2020-01-15 11:46] LABS: BUN/Creatinine Ratio 13.1; Bilirubin, Total 0.5 mg/dL (0.2-1.0); Phosphorus 3.2 mg/dL (2.5-4.90); Total Protein 7.6 g/dL (6.4-8.2)
[2020-01-15 12:17] VITALS: BP 165/118
[2020-01-15] MEDS: METOPROLOL TARTRATE 1MG/1ML-5ML VIAL IV SCH ×3 (13:53→23:42)
[2020-01-15] MEDS: ENALAPRILAT 1.25 MG/ML-1ML VIAL IV SCH ×3 (13:54→23:43)
--- NOTE | 2020-01-15 14:21 | NUR ---
Spoke with Jeanna at [facility]. She states she has not yet received today's progress notes. She also requested update on vital signs. 01/15/20 progress notes and labs faxed to [phone]. Jeanna: [phone] Ext [phone].
[2020-01-15 16:19] VITALS: BP 155/123
--- NOTE | 2020-01-15 16:51 | NUR ---
Patient medicated frequently for pain. Will continue to monitor.
--- NOTE | 2020-01-15 19:20 | NUR ---
Opening Note Assumed care of patient, awake and alert. No S/S of distress/SOB or pain. Instructed on POC and to call for assist as needed, will continue to monitor.
[2020-01-15] MEDS ORDERED: TPN PER PHARMACY IV NR ×8 (20:00)
--- NOTE | 2020-01-15 20:02 | NUR ---
Medicated for pain.
--- NOTE | 2020-01-15 20:02 | NUR ---
PICC line dressing changed using aseptic technique. Patient tolerated well.
--- NOTE | 2020-01-15 21:38 | NUR ---
Note to Social Service Heather from [facility] called, they need for SS to fax the most resent CT scan, Operative notes and pathology reports in order to transfer the patient. FAX [phone] Call back number [phone]
[2020-01-15 22:00] VITALS: BP 153/106
--- NOTE | 2020-01-15 22:55 | NUR ---
Patient medicated for pain
[2020-01-16] VITALS (7 sets, daily range): BP systolic 119–167; BP diastolic 78–121
[2020-01-16] MEDS: HYDROmorphone HCL 2 MG/ML VL IV PRN ×7 (02:03→20:23)
[2020-01-16] MEDS: InsuLIN REG 1unit/0.01ml Soln (100units/ml) SC SCH ×3 (05:02→17:42)
[2020-01-16] MEDS: ACCU-CHEK COMFORT CURVE STRIP VI SCH ×3 (05:02→17:42)
[2020-01-16] MEDS: LINEZOLID 600MG/300ML 300 ML IV SCH ×2 (05:03→17:09)
[2020-01-16] MEDS: MEROPENEM 1GM IVPB 100 ML IV SCH ×3 (05:03→22:27)
[2020-01-16] MEDS: METOPROLOL TARTRATE 1MG/1ML-5ML VIAL IV SCH ×3 (05:04→17:08)
[2020-01-16] MEDS: ENALAPRILAT 1.25 MG/ML-1ML VIAL IV SCH (05:21)
[2020-01-16 06:35] LABS: Potassium 3.9 mmol/L (3.5-5.1)
[2020-01-16 06:50] LABS: Albumin 2.3 g/dL (3.4-5.0); BUN/Creatinine Ratio 13.9; Bilirubin, Total 0.5 mg/dL (0.2-1.0); Calcium 8.9 mg/dL (8.5-10.1); Magnesium 2.2 mg/dL (1.6-2.6); Phosphorus 3.9 mg/dL (2.5-4.90); Total Protein 7.6 g/dL (6.4-8.2)
--- NOTE | 2020-01-16 07:30 | NUR ---
Opening Note Assumed patient care from MICHELE RN.
--- NOTE | 2020-01-16 07:57 | NUR ---
Paged Hospitalist Paged hospitalist for patient BP.
--- NOTE | 2020-01-16 08:12 | NUR ---
Obtained order for Labetalol 10mg IV once for BP of 159/118, HR 107
[2020-01-16] MEDS ORDERED: LABETALOL HCL 5 MG/ML 4ML SYRINGE IV ONE (08:15)
--- NOTE | 2020-01-16 10:13 | NUR ---
1013 01/16/20 Faxed to [facility] center the following requested documents: pathology reports. CT scans, and current progress notes.
[2020-01-16] MEDS: NITROGLYCERIN 0.2MG/HR TOPICAL PATCH TD SCH (10:42)
[2020-01-16] MEDS: ENOXAPARIN SOD 80 MG/0.8ML SYRINGE SC SCH ×2 (10:42→22:28)
[2020-01-16] MEDS: PANTOPRAZOLE 40 MG/10 ML VIAL INJ IV SCH ×2 (10:42→22:28)
[2020-01-16] MEDS: SODIUM CHLOR 0.9% PF (SALINE LOCK) 10ML VIAL/SYR IV SCH ×2 (10:43→22:28)
--- NOTE | 2020-01-16 10:46 | NUR ---
at Bedside Dr. Guzmán at bedside. Per MD, start patient on Norvasc 10mg PO once, if patient can tolerate, start daily dose on 01/16. See EMAR.
[2020-01-16] MEDS: MICAFUNGIN SODIUM 100 MG in SODIUM CHL 0.9% 100 ML IV SCH (11:25)
[2020-01-16] MEDS ORDERED: amLODIPine BESYLATE 5 MG TAB PO ONE (12:00)
--- NOTE | 2020-01-16 12:10 | NUR ---
Suction Off PO Norvasc administered, suction turned off. Will notify MD of patient's tolerance; respirations are even and unlabored, no signs of distress at this time, will continue to monitor.
--- NOTE | 2020-01-16 13:11 | NUR ---
1311 01/16/20 Contacted by [facility] transfer center coordinator Jeannette, who stated they would not be able to accept patient. Per, Dr Mauricio Ayoub who reviewed the notes this patient is not a surgical candidate, provider recommends palliative care.
--- NOTE | 2020-01-16 13:34 | NUR ---
Nutrition Followup Notes WT : 76.1 kg Pt is still awaiting transfer to higher level of care. Pt is still NPO. Pt currently on PN support @ 71 ml/hr providing 1780 kcals and 80 gm protein 1460 NCP. Pt with adequate energy intake from PN support aeb 96-110% of est caloric needs. Protein intake from PN support is adequate aeb 99-123% protein needs. Pt with no distress. Will continue to closely monitor pertinent labs, PO intake and skin status prn. Will followup in 2-3 days Est Energy needs: 8527-5995 kcals (20-23 kcal/kgBW), Est Protein needs: 65-81 gms/day (0.8-1.0 gm/kgBW). Will continue to monitor and reassess prn. LABS: GLU 111 H, ALB 2.3 L, AST 90 H, ALT 73 H, ALK PHOS 211 GI: Last BM noted on 01/14 per RN doc BS: 19 low risk, skin tear. Please refer to wound assessment report for full details. PES: Problem 1) Increased nutrient needs r/t pt currently with no PO intake aeb pt NPO status 2) Altered nutrition related lab values r/t current medical condition aeb hyperglycemia, mod hypoalbuminemia Comments Will continue to closely monitor pertinent labs, PO intake and skin status prn. Will followup in 2-3 days 1) Gradually advance pt to oral diet when medically feasible and as tolerated . 2) Continue PN support to meet > 75% of needs. 3) Continue current plan of care
--- NOTE | 2020-01-16 13:37 | NUR ---
1338 01/16/[address] Guzmán that [facility] declined to accept patient. Per, Dr Mauricio Ayoub patient is not a surgical candidate and he recommended palliative care.
--- NOTE | 2020-01-16 14:00 | NUR ---
Paged Paged Dr. Guzmán, notified of patient's tolerance to turning off suction. Patient has no nausea or vomiting at this time. Will continue to monitor. Per MD, patient was rejected by [facility], MD will speak with social security specialist regarding rejection.
--- NOTE | 2020-01-16 16:33 | NUR ---
Fidelia HERRERA Spoke with Dr. Guzmán regarding patient complaint of pain. Per MD, order a pain management consult as patient can only tolerate IV or patch. MD to speak with patient's family regarding [facility] rejection, no further plan at this time, will discuss possible palliative care.
--- NOTE | 2020-01-16 17:27 | NUR ---
Colostomy Output Colostomy output 225 mL of dark brown/green drainage, odor noted, smells like eggs.
--- NOTE | 2020-01-16 19:30 | NUR ---
Opening Shift Note Assumed care of patient, awake and alert. No S/S of distress/SOB. Instructed on POC and to call for assist PRN, will continue to monitor for changes Q1hr and PRN.
[2020-01-16] MEDS ORDERED: TPN PER PHARMACY IV NR ×8 (20:00)
[2020-01-17] MEDS: ACCU-CHEK COMFORT CURVE STRIP VI SCH ×4 (00:17→17:14)
[2020-01-17] MEDS: METOPROLOL TARTRATE 1MG/1ML-5ML VIAL IV SCH ×4 (00:19→17:01)
[2020-01-17] MEDS: HYDROmorphone HCL 2 MG/ML VL IV PRN ×8 (00:20→21:43)
[2020-01-17 04:30] VITALS: BP 152/104
[2020-01-17] MEDS: LINEZOLID 600MG/300ML 300 ML IV SCH ×2 (05:32→18:55)
[2020-01-17] MEDS: InsuLIN REG 1unit/0.01ml Soln (100units/ml) SC SCH ×4 (05:33→17:10)
--- NOTE | 2020-01-17 06:55 | NUR ---
Patient had approximately 200 ml of black/dark green output from suction canister. Patient had no c/o any nausea.
--- NOTE | 2020-01-17 06:58 | NUR ---
Colostomy output: Patient had approximately 100 ml of dark liquid stool.
--- NOTE | 2020-01-17 07:30 | NUR ---
Opening Note Assumed patient care from NOC Vargas CASH.
[2020-01-17 07:46] LABS: Potassium 3.7 mmol/L (3.5-5.1)
[2020-01-17 08:00] LABS: Albumin 2.4 g/dL (3.4-5.0); BUN/Creatinine Ratio 15.5; Bilirubin, Total 0.5 mg/dL (0.2-1.0); Calcium 8.7 mg/dL (8.5-10.1); Magnesium 2.4 mg/dL (1.6-2.6); Phosphorus 3.4 mg/dL (2.5-4.90); Total Protein 7.7 g/dL (6.4-8.2)
[2020-01-17] MEDS: MEROPENEM 1GM IVPB 100 ML IV SCH ×2 (08:13→17:01)
[2020-01-17 08:55] VITALS: BP 148/114
[2020-01-17] MEDS: ENOXAPARIN SOD 80 MG/0.8ML SYRINGE SC SCH ×2 (08:56→21:53)
[2020-01-17] MEDS: PANTOPRAZOLE 40 MG/10 ML VIAL INJ IV SCH ×2 (08:56→21:52)
[2020-01-17] MEDS: NITROGLYCERIN 0.2MG/HR TOPICAL PATCH TD SCH (08:56)
[2020-01-17] MEDS: amLODIPine BESYLATE 5 MG TAB PO SCH (08:57)
--- NOTE | 2020-01-17 09:06 | NUR ---
Suction Off Suction turned off for med administration. Will continue to monitor.
--- NOTE | 2020-01-17 10:30 | NUR ---
Suction On Suction restarted per MD orders. Patient tolerated suction off well with no episodes of nausea or vomiting. Will continue to monitor.
[2020-01-17] MEDS: SODIUM CHLOR 0.9% PF (SALINE LOCK) 10ML VIAL/SYR IV SCH ×2 (11:40→21:53)
[2020-01-17] MEDS: MICAFUNGIN SODIUM 100 MG in SODIUM CHL 0.9% 100 ML IV SCH (12:34)
[2020-01-17 12:56] VITALS: BP 146/111
[2020-01-17 16:21] VITALS: BP 161/124
[2020-01-17] MEDS: fentaNYL 25MCG/HR 25 MCG/HR PAT TD SCH (17:03)
--- NOTE | 2020-01-17 17:15 | NUR ---
pagemichael Paged Hospitalist for pain medication as Dilaudid was discontinued.
--- NOTE | 2020-01-17 17:30 | NUR ---
Paged Hospitalist Paged Hospitalist as Dilaudid was discontinued.
--- NOTE | 2020-01-17 17:50 | NUR ---
Paged Hospitalist Paged Hospitalist for pain medication as Dilaudid was discontinued.
--- NOTE | 2020-01-17 18:34 | NUR ---
Hospitalist Spoke with Dr. Miller. informed that patient is complaining of 10/10 pain, per MD resume Dilaudid 1mg IV q 3 hours.
--- NOTE | 2020-01-17 18:57 | NUR ---
Output Colostomy: 150ml dark green/brown liquid drainage, odor noted, smells like eggs. NGT: 200mL dark liquid drainage.
--- NOTE | 2020-01-17 18:57 | NUR ---
Fidelia HERRERA Pagemichael Holman regarding patient blood pressure.
--- NOTE | 2020-01-17 19:00 | NUR ---
Closing Note Report given to MICHELE CASH.
[2020-01-17] MEDS ORDERED: TPN PER PHARMACY IV NR ×9 (20:00)
--- NOTE | 2020-01-17 20:00 | NUR ---
Opening Shift Note Assumed care of patient, awake, AAOX4. No S/S of distress/SOB. On room air and ambulatory. NGT patent, on LIS. Colostomy bag intact. Bed in lowest locked position, side rails up x2, call light within reach. Instructed on POC and to call for assist PRN, will continue to monitor for changes Q1hr and PRN.
[2020-01-17 21:15] VITALS: BP 123/105
[2020-01-18] MEDS: ACCU-CHEK COMFORT CURVE STRIP VI SCH ×4 (00:02→17:52)
[2020-01-18] MEDS: MEROPENEM 1GM IVPB 100 ML IV SCH ×3 (00:02→16:30)
[2020-01-18] MEDS: METOPROLOL TARTRATE 1MG/1ML-5ML VIAL IV SCH ×4 (00:02→17:51)
[2020-01-18] MEDS: HYDROmorphone HCL 2 MG/ML VL IV PRN ×8 (00:50→22:06)
[2020-01-18 04:40] VITALS: BP 166/118
[2020-01-18] MEDS: InsuLIN REG 1unit/0.01ml Soln (100units/ml) SC SCH ×4 (06:00→17:52)
[2020-01-18] MEDS: LINEZOLID 600MG/300ML 300 ML IV SCH ×2 (06:25→19:11)
--- NOTE | 2020-01-18 07:18 | NUR ---
Opening Note Assumed patient care from Vicki BAUTISTA RN.
--- NOTE | 2020-01-18 07:18 | NUR ---
Blood Draw Sent Blood draw collected and sent to lab.
[2020-01-18 07:30] LABS: Basophils # (auto) 0.1 10 ^3/uL (0-0.2); Basophils % (auto) 0.5 % (0.0-2.0); Eosinophils # (auto) 0.3 10 ^3/uL (0-0.8); Lymphocytes # (auto) 1.3 10 ^3/uL (0.4-5.4)
[2020-01-18 07:31] LABS: Eosinophils % (auto) 1.8 % (0.0-7.0); Hematocrit 26.9 % (41.0-53.0); Hemoglobin 7.9 g/dL (13.5-17.5); Lymphocytes % (auto) 8.3 % (10.0-50.0); Mean Corpuscular Hemoglobin 26.1 pg (28.0-32.0); Mean Corpuscular Hgb Conc. 29.2 g/dL (32.0-36.0); Mean Corpuscular Volume 89.4 fL (80.0-100.0); Monocytes # (auto) 1.3 10 ^3/uL (0-1.3); Neutrophils # (auto) 12.7 10 ^3/uL (1.6-8.6); Neutrophils % (auto) 81.4 % (37.0-80.0); Platelet Count (auto) 331 10^3/uL (140-450); Red Blood Cells 3.01 10^6/uL (4.5-5.90); Red Cell Distribution Width 19.1 % (11.8-14.3); White Blood Cell 15.6 10^3/uL (4.4-10.8)
--- NOTE | 2020-01-18 08:03 | NUR ---
Lab Spoke with component lab tech regarding patient blood draws. Blood to be redrawn due to contamination.
[2020-01-18 09:00] VITALS: BP 150/102
--- NOTE | 2020-01-18 09:40 | NUR ---
at Station Dr. Daniels at station, per , cardiology consult added for blood pressure management.
[2020-01-18 10:02] LABS: Albumin 2.4 g/dL (3.4-5.0); Calcium 8.8 mg/dL (8.5-10.1); Magnesium 1.9 mg/dL (1.6-2.6); Potassium 3.8 mmol/L (3.5-5.1)
[2020-01-18 10:06] LABS: BUN/Creatinine Ratio 14.4; Bilirubin, Total 0.6 mg/dL (0.2-1.0); Phosphorus 3.5 mg/dL (2.5-4.90); Total Protein 7.6 g/dL (6.4-8.2)
[2020-01-18] MEDS: SODIUM CHLOR 0.9% PF (SALINE LOCK) 10ML VIAL/SYR IV SCH ×2 (10:20→22:05)
[2020-01-18] MEDS: PANTOPRAZOLE 40 MG/10 ML VIAL INJ IV SCH ×2 (10:34→22:05)
[2020-01-18] MEDS: amLODIPine BESYLATE 5 MG TAB PO SCH (10:36)
[2020-01-18] MEDS: ENOXAPARIN SOD 80 MG/0.8ML SYRINGE SC SCH ×2 (10:36→22:05)
[2020-01-18] MEDS: NITROGLYCERIN 0.2MG/HR TOPICAL PATCH TD SCH (10:37)
[2020-01-18] MEDS ORDERED: HCTZ 25 MG TAB PO ONE (11:30)
--- NOTE | 2020-01-18 12:00 | NUR ---
at Station Dr. Daniels at station, updated on patient blood pressure and medication administration. New orders received for physical therapy evaluation.
[2020-01-18] MEDS: MICAFUNGIN SODIUM 100 MG in SODIUM CHL 0.9% 100 ML IV SCH (12:19)
[2020-01-18 12:37] VITALS: BP 156/113
[2020-01-18] MEDS: hydrALAZINE HCL 20 MG/ML VL IV PRN (13:40)
--- NOTE | 2020-01-18 14:30 | NUR ---
Ambulated Patient ambulated with PT, minimal assistance, using FWW. Addendum: 01/18/20 at 1813 by EUGENIA BELTRAN RN RN Ambulated in [facility]
[2020-01-18 16:24] VITALS: BP 139/97
[2020-01-18] MEDS ORDERED: TPN PER PHARMACY IV NR ×7 (20:00)
[2020-01-18 22:00] VITALS: BP 140/100
[2020-01-19] MEDS: METOPROLOL TARTRATE 1MG/1ML-5ML VIAL IV SCH ×4 (00:01→17:35)
[2020-01-19] MEDS: ACCU-CHEK COMFORT CURVE STRIP VI SCH ×4 (00:02→17:35)
[2020-01-19] MEDS: MEROPENEM 1GM IVPB 100 ML IV SCH ×3 (00:02→17:33)
--- NOTE | 2020-01-19 00:07 | NUR ---
NGT Drainage 500mL of green drainage emptied. Canister replaced, NGT tube placement confirmed. Will continue to monitor.
[2020-01-19] MEDS: hydrALAZINE HCL 20 MG/ML VL IV PRN ×2 (01:15→22:13)
[2020-01-19] MEDS: HYDROmorphone HCL 2 MG/ML VL IV PRN ×7 (01:15→21:02)
--- NOTE | 2020-01-19 01:38 | NUR ---
Patient Rounds Patient currently laying in bed with eyes closed, respirations even and unlabored, no signs of distress at this time. Safety precautions in place, will continue to monitor.
[2020-01-19 05:00] VITALS: BP 123/85
[2020-01-19] MEDS: LINEZOLID 600MG/300ML 300 ML IV SCH ×2 (05:46→18:00)
[2020-01-19] MEDS: InsuLIN REG 1unit/0.01ml Soln (100units/ml) SC SCH ×5 (06:00→17:35)
--- NOTE | 2020-01-19 07:58 | NUR ---
Opening Shift Note Assumed care of patient, awake and alert. No S/S of distress/SOB. Fall, aspiration, and safety precautions in place. Call light within reach and able to use. Patient connected to LIS via right nare NG tube draining green clear fluid. TPN via central line. Instructed on POC and to call for assist PRN, patient verbalized understanding and in agreement. Will continue to monitor for changes Q1hr and PRN. LATE ENTRY
[2020-01-19 08:30] VITALS: BP 128/94
[2020-01-19] MEDS: PANTOPRAZOLE 40 MG/10 ML VIAL INJ IV SCH ×2 (09:12→21:02)
[2020-01-19] MEDS: ENOXAPARIN SOD 80 MG/0.8ML SYRINGE SC SCH ×2 (09:12→21:03)
[2020-01-19] MEDS: SODIUM CHLOR 0.9% PF (SALINE LOCK) 10ML VIAL/SYR IV SCH ×2 (09:12→21:03)
[2020-01-19] MEDS: HCTZ 25 MG TAB PO SCH (09:13)
[2020-01-19] MEDS: NITROGLYCERIN 0.2MG/HR TOPICAL PATCH TD SCH (09:16)
[2020-01-19 11:05] LABS: Basophils # (auto) 0.1 10 ^3/uL (0-0.2); Monocytes # (auto) 1.7 10 ^3/uL (0-1.3); Monocytes % (auto) 9.4 % (0.0-12.0); Red Cell Distribution Width 18.7 % (11.8-14.3)
[2020-01-19 11:06] LABS: Basophils % (auto) 0.5 % (0.0-2.0); Eosinophils # (auto) 0.3 10 ^3/uL (0-0.8); Eosinophils % (auto) 1.8 % (0.0-7.0); Hematocrit 26.3 % (41.0-53.0); Hemoglobin 8.5 g/dL (13.5-17.5); Lymphocytes # (auto) 1.6 10 ^3/uL (0.4-5.4); Lymphocytes % (auto) 8.7 % (10.0-50.0); Mean Corpuscular Hemoglobin 24.7 pg (28.0-32.0); Mean Corpuscular Hgb Conc. 32.5 g/dL (32.0-36.0); Mean Corpuscular Volume 76.1 fL (80.0-100.0); Neutrophils # (auto) 14.5 10 ^3/uL (1.6-8.6); Neutrophils % (auto) 79.6 % (37.0-80.0); Platelet Count (auto) 431 10^3/uL (140-450); Red Blood Cells 3.45 10^6/uL (4.5-5.90); White Blood Cell 18.2 10^3/uL (4.4-10.8)
[2020-01-19 11:21] LABS: Albumin 2.4 g/dL (3.4-5.0); Calcium 8.9 mg/dL (8.5-10.1); Magnesium 1.8 mg/dL (1.6-2.6); Potassium 3.4 mmol/L (3.5-5.1)
[2020-01-19 11:24] LABS: BUN/Creatinine Ratio 14.6; Bilirubin, Total 0.6 mg/dL (0.2-1.0); Phosphorus 3.5 mg/dL (2.5-4.90); Total Protein 7.9 g/dL (6.4-8.2)
[2020-01-19] MEDS: MICAFUNGIN SODIUM 100 MG in SODIUM CHL 0.9% 100 ML IV SCH (12:17)
[2020-01-19 12:30] VITALS: BP 129/94
[2020-01-19] MEDS ORDERED: POTASSIUM CHL 20MEQ/100ML 100 ML IV ONE (13:45)
--- NOTE | 2020-01-19 14:56 | NUR ---
Nutrition Followup Notes WT : 75.5 kg Pt is not accepted for transfer to [facility], awaiting to transfer to another SNF or if recommended for palliative care. Pt is still NPO. Pt currently on PN support @ 71 ml/hr providing 1780 kcals and 80 gm protein 1460 NCP. Pt with adequate energy intake from PN support aeb 96-110% of est caloric needs. Protein intake from PN support is adequate aeb 99-123% protein needs. Pt with no distress. Will continue to closely monitor pertinent labs, PO intake and skin status prn. Will followup in 2-3 days Est Energy needs: 4447-9801 kcals (20-23 kcal/kgBW), Est Protein needs: 65-81 gms/day (0.8-1.0 gm/kgBW). Will continue to monitor and reassess prn. LABS: GLUC 151H, AST 143H, ALT 86H, ALK PHOS 211H, Alb 2.4L, GI: Last BM noted on 01/14 per RN doc, 200 ml gastric stool BS: 19 low risk, skin tear. Please refer to wound assessment report for full details. PES: Problem 1) Increased nutrient needs r/t pt currently with no PO intake aeb pt NPO status 2) Altered nutrition related lab values r/t current medical condition aeb hyperglycemia, mod hypoalbuminemia Comments Will continue to closely monitor pertinent labs, PO intake and skin status prn. Will followup in 2-3 days 1) Gradually advance pt to oral diet when medically feasible and as tolerated . 2) Continue PN support to meet > 75% of needs. 3) Continue current plan of care
--- NOTE | 2020-01-19 16:13 | NUR ---
1614 01/19/[address] Bishop regarding SNF placement. PerEdna patient has agreed to SNF with outpt radiation and chemo treatments. Contacted [facility] continuous pillowcase cutter requesting authorization for continued stay and a list of contracted SNF facilities.
[2020-01-19 17:00] VITALS: BP 138/94
[2020-01-19] MEDS ORDERED: TPN PER PHARMACY IV NR ×7 (20:00)
--- NOTE | 2020-01-19 20:25 | NUR ---
ASSUMED CARE OF PATIENT
[2020-01-19 22:00] VITALS: BP 159/102
[2020-01-20] MEDS: MEROPENEM 1GM IVPB 100 ML IV SCH ×4 (00:26→23:16)
[2020-01-20] MEDS: METOPROLOL TARTRATE 1MG/1ML-5ML VIAL IV SCH ×5 (00:26→23:16)
[2020-01-20] MEDS: HYDROmorphone HCL 2 MG/ML VL IV PRN ×8 (00:27→23:14)
[2020-01-20] MEDS: ACCU-CHEK COMFORT CURVE STRIP VI SCH ×5 (00:27→23:17)
[2020-01-20 05:00] VITALS: BP 124/91
--- NOTE | 2020-01-20 05:45 | NUR ---
BLOOD SENT TO LAB
[2020-01-20] MEDS: LINEZOLID 600MG/300ML 300 ML IV SCH ×2 (05:54→17:22)
[2020-01-20] MEDS: InsuLIN REG 1unit/0.01ml Soln (100units/ml) SC SCH ×5 (05:55→23:17)
--- NOTE | 2020-01-20 06:07 | NUR ---
NG NG OUTPUT 400ML GREEN IN COLOR AND CLEAR IN CONSISTENCY. WILL CONTINUE TO MONITOR.
[2020-01-20 06:28] LABS: Potassium 3.4 mmol/L (3.5-5.1)
[2020-01-20 06:34] LABS: Albumin 2.2 g/dL (3.4-5.0); BUN/Creatinine Ratio 14.8; Bilirubin, Total 0.6 mg/dL (0.2-1.0); Calcium 8.7 mg/dL (8.5-10.1); Phosphorus 3.3 mg/dL (2.5-4.90); Total Protein 7.6 g/dL (6.4-8.2)
[2020-01-20 08:36] VITALS: BP 138/102
[2020-01-20] MEDS: PANTOPRAZOLE 40 MG/10 ML VIAL INJ IV SCH ×2 (09:42→20:17)
[2020-01-20] MEDS: ENOXAPARIN SOD 80 MG/0.8ML SYRINGE SC SCH ×2 (09:43→20:18)
[2020-01-20] MEDS: SODIUM CHLOR 0.9% PF (SALINE LOCK) 10ML VIAL/SYR IV SCH ×2 (09:43→20:18)
[2020-01-20] MEDS: NITROGLYCERIN 0.2MG/HR TOPICAL PATCH TD SCH (09:45)
[2020-01-20] MEDS: HCTZ 25 MG TAB PO SCH (09:45)
--- NOTE | 2020-01-20 09:47 | NUR ---
PAGED MD MONTENEGRO RE: PENDING SNF PLACEMENT. PER SSW THEY ORDER NEEDS SPECIFIC REASONS FOR SNF PLACEMENT
--- NOTE | 2020-01-20 09:49 | NUR ---
RETURNED PAGE. NEW ORDERS RECEIVED FOR SNF PLACEMENT
[2020-01-20] MEDS: MICAFUNGIN SODIUM 100 MG in SODIUM CHL 0.9% 100 ML IV SCH (11:46)
[2020-01-20 12:34] VITALS: BP 150/104
[2020-01-20] MEDS: fentaNYL 25MCG/HR 25 MCG/HR PAT TD SCH (16:06)
--- NOTE | 2020-01-20 16:45 | NUR ---
D/C Planning Per SS consult for SNF Placement for TPN and IV abx. faxed clinical information to contracted facilities [facility], [facility], and [facility] . [facility], [facility], and [facility],They are unable to accommodate patient needs at this time. Will continue to fax to different facilities.
[2020-01-20 16:52] VITALS: BP 150/115
[2020-01-20] MEDS ORDERED: TPN PER PHARMACY IV NR ×7 (20:00)
[2020-01-20] MEDS: PROMETHAZINE HCL 25 MG/ML 1ML IV PRN (20:18)
[2020-01-20 22:00] VITALS: BP 145/112
[2020-01-20 23:32] VITALS: BP 145/105
[2020-01-21] VITALS (7 sets, daily range): BP systolic 133–152; BP diastolic 92–112
[2020-01-21] MEDS: HYDROmorphone HCL 2 MG/ML VL IV PRN ×7 (02:18→23:30)
[2020-01-21] MEDS: hydrALAZINE HCL 20 MG/ML VL IV PRN (05:20)
[2020-01-21] MEDS: LINEZOLID 600MG/300ML 300 ML IV SCH ×2 (05:20→18:30)
[2020-01-21] MEDS: METOPROLOL TARTRATE 1MG/1ML-5ML VIAL IV SCH ×4 (05:20→23:29)
[2020-01-21] MEDS: InsuLIN REG 1unit/0.01ml Soln (100units/ml) SC SCH ×3 (05:31→17:40)
[2020-01-21] MEDS: ACCU-CHEK COMFORT CURVE STRIP VI SCH ×3 (05:31→17:40)
--- NOTE | 2020-01-21 07:30 | NUR ---
Opening Shift Note Assumed care of patient, awake and alert. No S/S of distress/SOB. Patient reports abdominal pain as a 10/10, and requesting PRN med, medication too close from last dose, unable to administer at this time. Patient verbalizes understanding. Will re assess and medicate as soon as able to administer. For now, heat packs applied and patient repositioned for maximum comfort. Fall, aspiration, and safety precautions in place. Call light within reach and able to use. Patient connected to LIS via right nare NG tube draining green clear fluid. TPN via central line. Instructed on POC and to call for assist PRN, patient verbalized understanding and in agreement. Will continue to monitor for changes Q1hr and PRN.
--- NOTE | 2020-01-21 08:10 | NUR ---
Pain Patient continues to rate abdominal pain as 10/10. Will administer PRN medication as per order.
[2020-01-21] MEDS: MEROPENEM 1GM IVPB 100 ML IV SCH ×3 (08:32→23:30)
--- NOTE | 2020-01-21 09:10 | NUR ---
Pain Reassessment Patient verbalizes decrease in pain level and now rates it a 5/10, stating this is a tolerable level for now. No further actions needed at this time. Will continue to monitor.
[2020-01-21] MEDS: SODIUM CHLOR 0.9% PF (SALINE LOCK) 10ML VIAL/SYR IV SCH ×2 (09:46→22:45)
[2020-01-21] MEDS: PANTOPRAZOLE 40 MG/10 ML VIAL INJ IV SCH ×2 (09:46→22:44)
[2020-01-21] MEDS: HCTZ 25 MG TAB PO SCH (09:47)
[2020-01-21] MEDS: ENOXAPARIN SOD 80 MG/0.8ML SYRINGE SC SCH ×2 (09:48→22:45)
[2020-01-21] MEDS: NITROGLYCERIN 0.2MG/HR TOPICAL PATCH TD SCH (09:49)
[2020-01-21] MEDS: MICAFUNGIN SODIUM 100 MG in SODIUM CHL 0.9% 100 ML IV SCH (10:40)
--- NOTE | 2020-01-21 11:00 | NUR ---
Pain Patient continues to rate abdominal pain as 10/10. Will administer PRN medication as per order.
--- NOTE | 2020-01-21 11:36 | NUR ---
Pain Reassessment Patient verbalizes decrease in pain level and now rates it a 6/10, PRN not due yet. Patient verbalizes understanding. Patient aided in repositioning for optimal comfort. Will continue to monitor.
--- NOTE | 2020-01-21 11:51 | NUR ---
MD Guzmán at bed side. New orders received, read back and verified. Will implement.
[2020-01-21 11:56] LABS: Potassium 3.7 mmol/L (3.5-5.1)
[2020-01-21 11:57] LABS: Albumin 2.3 g/dL (3.4-5.0); BUN/Creatinine Ratio 15.2; Bilirubin, Total 0.5 mg/dL (0.2-1.0); Calcium 8.8 mg/dL (8.5-10.1); Phosphorus 2.8 mg/dL (2.5-4.90); Total Protein 7.8 g/dL (6.4-8.2)
[2020-01-21 11:58] LABS: Magnesium 2.2 mg/dL (1.6-2.6); Pre Albumin 20.3 mg/dL (20.0-40.0)
--- NOTE | 2020-01-21 13:00 | NUR ---
Dr. Sung at bed side, per MD martinez LOMAX to see if patient tolerates. Will follow through.
--- NOTE | 2020-01-21 14:12 | NUR ---
NGT re hooked to ILS. Patient stated he felt nauseous. Will resume as per MD orders.
--- NOTE | 2020-01-21 14:46 | NUR ---
Nutrition Followup Notes WT : 74.2 kg Pt`s sleeping with no family by bedside. pt is currently nauseous with NG-LIS. Pt is still NPO. Pt currently on PN support @ 74 ml/hr providing 1780 kcals and 80 gm protein 1460 NCP. Pt with adequate energy intake from PN support aeb 96-110% of est caloric needs. Protein intake from PN support is adequate aeb 99-123% protein needs. Pt with no distress. Will continue to closely monitor pertinent labs, PO intake and skin status prn. Will followup in 2-3 days Est Energy needs: 3923-8911 kcals (20-23 kcal/kgBW), Est Protein needs: 65-81 gms/day (0.8-1.0 gm/kgBW). Will continue to monitor and reassess prn. LABS: glu 118 h, bun 19 h GI: Last BM noted on 01/14 per RN doc, 250 ml gastric stool BS: 19 low risk, skin tear. Please refer to wound assessment report for full details. PES: Problem 1) Increased nutrient needs r/t pt currently with no PO intake aeb pt NPO status 2) Altered nutrition related lab values r/t current medical condition aeb hyperglycemia, mod hypoalbuminemia Comments Will continue to closely monitor pertinent labs, PO intake and skin status prn. Will followup in 2-3 days 1) Gradually advance pt to oral diet when medically feasible and as tolerated . 2) Continue PN support to meet > 75% of needs. 3) Continue current plan of care
--- NOTE | 2020-01-21 19:40 | NUR ---
Opening Shift Note Report received that patient still waiting for SNF acceptance. Assumed care of patient, awake and alert. NGT to LIS at 65, draining greenish fluid. Instructed on POC and to call for assist PRN, will continue to monitor for changes Q1hr and PRN.
[2020-01-21] MEDS ORDERED: TPN PER PHARMACY IV NR ×8 (20:00)
[2020-01-22] MEDS: ACCU-CHEK COMFORT CURVE STRIP VI SCH ×4 (00:14→18:00)
[2020-01-22] MEDS: HYDROmorphone HCL 2 MG/ML VL IV PRN ×7 (02:37→20:52)
[2020-01-22] MEDS: hydrALAZINE HCL 20 MG/ML VL IV PRN ×2 (02:56→17:55)
--- NOTE | 2020-01-22 04:45 | NUR ---
Patient's heart rate goes up to 140's. Patient had been in constant pain, paon medication not due at this time. Hospitalist paged. Awaiting for call back.
[2020-01-22] MEDS: PROMETHAZINE HCL 25 MG/ML 1ML IV PRN ×3 (04:59→17:59)
--- NOTE | 2020-01-22 05:00 | NUR ---
No call back. Dilaudid IV given half hour early, Phenergan IV also given. Heart rate still up at this time. Patient closely monitored.
[2020-01-22] MEDS: METOPROLOL TARTRATE 1MG/1ML-5ML VIAL IV SCH ×3 (05:18→18:50)
--- NOTE | 2020-01-22 05:18 | NUR ---
No call back yet. O600 dose of metoprolol IV given at this time. Patient closely monitored.
[2020-01-22 05:48] VITALS: BP 151/98
[2020-01-22] MEDS: InsuLIN REG 1unit/0.01ml Soln (100units/ml) SC SCH ×4 (06:00→18:00)
[2020-01-22] MEDS ORDERED: dilTIAZem 25 MG/5 ML VIAL IV ONE (06:00)
--- NOTE | 2020-01-22 06:05 | NUR ---
Patient's heart rate in the 120's. Hospitalist Cory Hayward NP, called back, updated with patient's status. Order received.
[2020-01-22] MEDS ORDERED: LABETALOL HCL 5 MG/ML 4ML SYRINGE IV ONE (06:15)
--- NOTE | 2020-01-22 06:15 | NUR ---
Order verified, Cory Hayward NP changed medication order, noted. Close monitoring continued.
[2020-01-22] MEDS: LINEZOLID 600MG/300ML 300 ML IV SCH ×2 (06:25→19:26)
--- NOTE | 2020-01-22 06:28 | NUR ---
Labetalol 10 mg IV given as ordered by DENTAL SPECIALIST. Patient continued to be closely monitored.
[2020-01-22 06:40] LABS: Albumin 2.2 g/dL (3.4-5.0); Calcium 8.7 mg/dL (8.5-10.1); Potassium 3.9 mmol/L (3.5-5.1)
[2020-01-22 06:46] LABS: BUN/Creatinine Ratio 14.8; Bilirubin, Total 0.5 mg/dL (0.2-1.0); Magnesium 1.9 mg/dL (1.6-2.6); Total Protein 7.6 g/dL (6.4-8.2)
--- NOTE | 2020-01-22 07:00 | NUR ---
Patient's heart rate now at 110's. Patient verbalized nausea alleviated, and pain level lower. NGT output at 420cc. Colostomy output at 100cc. Report given to oncoming RN.
--- NOTE | 2020-01-22 07:30 | NUR ---
OPENING NOTE REPORT RECEIVED FROM MICHELE RN. PATIENT IN BED SLEEPING. NO NOTED S/S OF DISTRESS. WILL CONTINUE TO MONITOR.
--- NOTE | 2020-01-22 08:15 | NUR ---
PATIENT C/O PAIN PATIENT C/O PAIN 8-04/22. ABDOMINAL PAIN. WILL MEDICATE AND CONTINUE TO MONITOR.
[2020-01-22 08:29] LABS: Basophils # (auto) 0.1 10 ^3/uL (0-0.2); Eosinophils # (auto) 0.6 10 ^3/uL (0-0.8); Eosinophils % (auto) 3.8 % (0.0-7.0); Lymphocytes # (auto) 1.4 10 ^3/uL (0.4-5.4); Monocytes # (auto) 1.4 10 ^3/uL (0-1.3); Nucleated Red Blood Cells % 0.1 %; Red Cell Distribution Width 18.5 % (11.8-14.3)
[2020-01-22 08:31] LABS: Basophils % (auto) 0.4 % (0.0-2.0); Hematocrit 24.7 % (41.0-53.0); Lymphocytes % (auto) 8.8 % (10.0-50.0); Mean Corpuscular Hemoglobin 24.4 pg (28.0-32.0); Mean Corpuscular Hgb Conc. 32.2 g/dL (32.0-36.0); Mean Corpuscular Volume 75.8 fL (80.0-100.0); Monocytes % (auto) 8.4 % (0.0-12.0); Neutrophils # (auto) 12.9 10 ^3/uL (1.6-8.6); Neutrophils % (auto) 78.6 % (37.0-80.0); Platelet Count (auto) 459 10^3/uL (140-450); Red Blood Cells 3.26 10^6/uL (4.5-5.90); White Blood Cell 16.4 10^3/uL (4.4-10.8)
[2020-01-22] MEDS: MEROPENEM 1GM IVPB 100 ML IV SCH ×2 (08:43→16:30)
[2020-01-22 09:00] VITALS: BP 120/81
[2020-01-22] MEDS: PANTOPRAZOLE 40 MG/10 ML VIAL INJ IV SCH ×2 (10:46→20:56)
[2020-01-22] MEDS: SODIUM CHLOR 0.9% PF (SALINE LOCK) 10ML VIAL/SYR IV SCH ×2 (10:47→20:56)
[2020-01-22] MEDS: ENOXAPARIN SOD 80 MG/0.8ML SYRINGE SC SCH ×2 (10:47→20:56)
[2020-01-22] MEDS: NITROGLYCERIN 0.2MG/HR TOPICAL PATCH TD SCH (10:49)
[2020-01-22] MEDS: HCTZ 25 MG TAB PO SCH (10:56)
[2020-01-22] MEDS: MICAFUNGIN SODIUM 100 MG in SODIUM CHL 0.9% 100 ML IV SCH (10:56)
--- NOTE | 2020-01-22 11:28 | NUR ---
PATIENT HAS C/O PAIN PAIN MEDICATION WAS GIVEN FOR PAIN C/O OF 10/10, ABDOMINAL PAIN. WILL CONTINUE TO MONITOR.
--- NOTE | 2020-01-22 11:45 | NUR ---
PT WITH C/O SEVERE PAIN. RN AWARE, ATTEMPT P.T. LATER.
[2020-01-22 13:00] VITALS: BP 167/79
--- NOTE | 2020-01-22 14:30 | NUR ---
pt has c/o severe abdominal pain 05/22. will follow up to medicate.
--- NOTE | 2020-01-22 15:21 | NUR ---
D/C Planning Faxed clinical information to [facility], [facility], [facility], [facility]. Per Representatives with [facility], [facility], and [facility] they do not have male bed available. Per Guillermina with [facility] patient has been accepted once they obtain authorization they will assign bed in [place]. Informed JOSHUA Egan of accepting facility. Per JOSHUA Suarez she will contact [facility]. Pending authorization.
--- NOTE | 2020-01-22 16:19 | NUR ---
D/C Planning JOSHUA Egan obtain authorization from [facility]. Placed follow up call to [facility] with [facility]. Per [facility] patient has been accepted to [facility] in [place] [phone] to room 301 bed C accepting , Dr. Shelby. [facility] has been arranged with a 18:30 corn picker and patient will have a nurse on route . Informed RN Christine.
--- NOTE | 2020-01-22 16:33 | NUR ---
DEVONTE CONTRERAS, CONFIRMED PATIENT WILL TRANSFER TO [facility] TODAY AT 1830. FOLLOW UP WITH [facility] FOR TRANSPORTATION AND ANNALEE GONZALEZ .
--- NOTE | 2020-01-22 16:34 | NUR ---
[facility] TRANSPORTATION WILL ARRIVE AFTER 2229, R/T THE NEED FOR KST OPERATOR. CONTACT NABIL; [phone], EXT [phone]
[2020-01-22 17:02] VITALS: BP 153/105
--- NOTE | 2020-01-22 17:35 | NUR ---
pt c/o pain 05/22. will medicate and will follow up.
[2020-01-22] MEDS ORDERED: TPN PER PHARMACY IV NR ×10 (20:00)
--- NOTE | 2020-01-22 21:00 | NUR ---
Patient complains of pain in general abdominal area. patient given pain medication as prescribed. Will continue to monitor.
[2020-01-22 22:23] VITALS: BP 142/100
--- NOTE | 2020-01-22 22:50 | NUR ---
[facility] here to transfer to new facility. Patient AOx4, no signs of distress or SOB. All belongings with patient.
== END 2020-01-22 22:50 | DRG 720 ==
LOC: EDBD 14:32 → ER 14:32 → TELE 14:33 → TELE-EAST 19:45
PROVIDERS: ADMIT Hospitalist; ATTEND Internal Medicine Nephrology
PROC: 0D9670Z Drainage of Stomach with Drainage Device, Via Natural or Artificial Opening (ICD-10-PCS; 2019-12-30)
PROC: 02HV33Z Insertion of Infusion Device into Superior Vena Cava, Percutaneous Approach (ICD-10-PCS; principal; 2020-01-01)
DX: A41.9 Sepsis, unspecified organism (principal); N17.0 Acute kidney failure with tubular necrosis; K66.1 Hemoperitoneum; R64 Cachexia; E72.51 Non-ketotic hyperglycinemia; E44.0 Moderate protein-calorie malnutrition; C78.5 Secondary malignant neoplasm of large intestine and rectum; C78.6 Secondary malignant neoplasm of retroperitoneum and peritoneum; E88.09 Other disorders of plasma-protein metabolism, not elsewhere classified; E87.6 Hypokalemia; I12.9 Hypertensive chronic kidney disease with stage 1 through stage 4 chronic kidney disease, or unspecified chronic kidney disease; R73.9 Hyperglycemia, unspecified; F17.210 Nicotine dependence, cigarettes, uncomplicated; N18.9 Chronic kidney disease, unspecified; D63.8 Anemia in other chronic diseases classified elsewhere; Z51.5 Encounter for palliative care; I16.9 Hypertensive crisis, unspecified; Z93.3 Colostomy status; Z03.818 Encounter for observation for suspected exposure to other biological agents ruled out; Z79.899 Other long term (current) drug therapy; Z90.49 Acquired absence of other specified parts of digestive tract; Z68.26 Body mass index [BMI] 26.0-26.9, adult; Z71.6 Tobacco abuse counseling; Z86.718 Personal history of other venous thrombosis and embolism; D50.9 Iron deficiency anemia, unspecified
CPT/HCPCS: 36415; 36569; 71045; 71046; 74176; 74177; 76775; 80048; 80053; 80202; 81001; 82040; 82570; 82962; 83605; 83690; 83735; 84100; 84156; 84300; 84478; 85007; 85025; 85027; 85610; 85730; 86850; 86900; 86901; 87040; 87086; 93971; C9113; G0378; J0696; J1815; J1885; J1956; J2185; J2248; J2405; J2543; J3480; J3490; J7042; J7060; J7131; P9047